=== PATIENT | male | born 1965 | race African-American/Black ===

== ENCOUNTER 2020-06-13 13:10 | Outpatient (REF) | payer OTHER, SELFPAY | END 2020-06-13 13:11 | disposition home or self-care (01) | LOC: HO.LAB 13:10 | PROVIDERS: Visit Provider Internal Medicine | DX: Z20.828 Contact with and (suspected) exposure to other viral communicable diseases (principal) | CPT/HCPCS: 36415; 87635 ==

== ENCOUNTER 2020-07-26 08:48 | Outpatient (REF) | payer OTHER, SELFPAY | END 2020-07-26 08:49 | disposition home or self-care (01) | LOC: HO.LAB 08:48 | PROVIDERS: Visit Provider Internal Medicine | DX: Z20.828 Contact with and (suspected) exposure to other viral communicable diseases (principal) | CPT/HCPCS: C9803; U0003 ==

== ENCOUNTER → 2021-06-05 14:54 | Outpatient (BNVA) | payer OTHER, SELFPAY | PROVIDERS: Visit Provider Physician Assistant Medical | DX: S86.112A Strain of other muscle(s) and tendon(s) of posterior muscle group at lower leg level, left leg, initial encounter (principal); X50.9XXA Other and unspecified overexertion or strenuous movements or postures, initial encounter | CPT/HCPCS: 99203 ==

== ENCOUNTER → 2021-06-11 14:45 | Outpatient (BNVA) | payer OTHER, SELFPAY | PROVIDERS: Visit Provider Physician Assistant | DX: S86.112A Strain of other muscle(s) and tendon(s) of posterior muscle group at lower leg level, left leg, initial encounter (principal); X58.XXXA Exposure to other specified factors, initial encounter | CPT/HCPCS: 99213 ==

== ENCOUNTER 2021-07-09 15:43 | Outpatient (REF) | payer OTHER, SELFPAY ==
--- NOTE | ~2021-07-09 | MR_ITS ---
EXAMINATION: MR FEMUR WITHOUT CONTRAST, LEFT CLINICAL INFORMATION: Pulling injury, evaluate distal hamstring-likely tear. Patient reports burning, swelling, distal hamstring, slight decrease in range of motion, symptoms since recent injury 05/28/2021. COMPARISON: None. TECHNIQUE: MRI of the ankle was obtained using routine sequences on a high-field scanner. FINDINGS: There is patchy edema in the distal semimembranosus muscle at the level of the distal femoral diaphysis. There are scattered focal areas of apparent disruption of muscle fibers. There is no discrete intramuscular hematoma. There is fluid around the muscle. There is some irregularity of the semimembranosus tendon along the musculotendinous junction. The distal tendon is intact. The rest of the hamstring muscles are unremarkable. There is nonspecific cystic change in the intercondylar region of the distal femur. No other bone marrow abnormalities are identified. MR/MR femur LT wo con IMPRESSION: Moderate grade 2 strain of the distal semimembranosus muscle.
== END 2021-07-09 15:44 | disposition home or self-care (01) ==
LOC: HO.MRI 15:43
PROVIDERS: PCP Internal Medicine; Visit Provider Internal Medicine
DX: S79.922D Unspecified injury of left thigh, subsequent encounter (principal)
CPT/HCPCS: 73718

== ENCOUNTER → 2021-07-17 15:45 | Outpatient (BNVA) | payer OTHER, SELFPAY | PROVIDERS: PCP Internal Medicine; Visit Provider Physician Assistant | DX: S76.312D Strain of muscle, fascia and tendon of the posterior muscle group at thigh level, left thigh, subsequent encounter (principal); X58.XXXD Exposure to other specified factors, subsequent encounter; M85.652 Other cyst of bone, left thigh ==

== ENCOUNTER → 2021-07-18 07:54 | Outpatient (BNVA) | payer OTHER, SELFPAY | PROVIDERS: PCP Internal Medicine; Visit Provider Physician Assistant | DX: S76.312D Strain of muscle, fascia and tendon of the posterior muscle group at thigh level, left thigh, subsequent encounter (principal); X58.XXXD Exposure to other specified factors, subsequent encounter | CPT/HCPCS: 99213 ==

== ENCOUNTER 2023-09-30 15:54 | Outpatient (AMB) | payer OTHER, SELFPAY ==
[2023-09-30 16:03] VITALS: BP 124/80; PULSE 75; O2SAT 96; BMI 31.0
--- NOTE | 2023-09-30 16:03 | HO.NEPHOV ---
HPI HPI Comments History of Present Illness Details Roly is a 58-year-old gentleman with baseline serum creatinine between 2-2.5 due to adult polycystic kidney disease was seen in follow-up today. He was enrolled in 2 clinical trials in [facility], one was Bardoxolone vs Placebo which he is not following up anymore. He has history of systolic hypertension as well as paroxysmal atrial fibrillation. He has had no flank pain, dysuria, hematuria, kidney stones, nausea, vomiting, fever, chills, urinary symptoms, chest pain, orthostatic symptoms, paroxysmal nocturnal dyspnea, orthopnea. He has strong family history of polycystic kidney disease with father and sister. His father started intermittent hemodialysis at age of 67 & her sister started dialysis in her 40s however was able to successfully get a renal transplant. He has no history of any infected cyst or rupture of his either. He is compliant with his medications and low-sodium diet. He had an aneurysm(PKD). [facility] Social History (Updated 09/30/23 @ 16:11 by Alexia Elkins) Alcohol intake: current Comment: [facility] Patient Tobacco Use Status: Never used Tobacco Vital Signs 09/30/23 16:03 Height 5 ft 10 in Weight 216 lb 6 oz BMI 31.0 BP 124/80 Blood Pressure Location Lt brachial Position Sitting Pulse 75 Pulse Source Pulse Oximeter Pulse Oximetry (%) 96 Oxygen Delivery Method Room Air Physical Exam Vital Signs: Last Vital Signs Pulse 75 09/30/23 16:03 BP 124/80 09/30/23 16:03 Pulse Ox 96 09/30/23 16:03 Oxygen Delivery Method Room Air 09/30/23 16:03 BMI result Body Mass Index 31.0 Const General: comfortable and no acute distress Orientation/consciousness: patient oriented x3 HEENT Head: Yes normocephalic Mouth: Normal oral and palatal mucosa present Eyes EOM: EOMs intact bilaterally Neck Neck: Yes supple Resp Auscultation: clear to auscultation bilaterally Cardio Jugular venous distension: no JVD Rate: regular rate GI Palpation (GI): Soft to palpation Auscultation: normal bowel sounds General: Yes no CVA tenderness Back/Spine/Pelvis Back: no CVA tenderness Skin General skin exam: no rashes or lesions noted Neuro General: patient oriented x3 and moves all extremities Extrem General: Yes no pedal edema Assessment & Plan Assessment & Plan (1) CKD (chronic kidney disease) stage 4, GFR 15-29 ml/min: Code(s): N18.4 - Chronic kidney disease, stage 4 (severe) (2) Hypertension: Code(s): I10 - Essential (primary) hypertension Qualifiers: Hypertension type: secondary to other renal disorders Qualified Code(s): I15.1 - Hypertension secondary to other renal disorders Deanne Dunham has CKD stage 4 from adult polycystic kidney disease. He has strong family history of PKD. His sister had a renal transplant. He is currently on angiotensin receptor margarita, carvedilol and nifedipine. His blood pressure is at goal. He maintains an on low-sodium diet. Has never taken tolvaptan. He will need a MRI of the kidneys to assess the volume of kidneys. I will do a 24 hour urine collection for GFR estimation after next visit. I did not make any medication changes today. He avoids nonsteroidal anti-inflammatory is an maintain good hydration. Follow-up lab work ordered. Answered all questions. Follow-up given. Orders: Orders Protein Creatinine Ratio, Ur 09/30/23 I10 - Essential (primary) hypertension, N18.4 - Chronic kidney disease, stage 4 (severe) Blood Urea Nitrogen 09/30/23 I10 - Essential (primary) hypertension, N18.4 - Chronic kidney disease, stage 4 (severe) Ferritin 09/30/23 I10 - Essential (primary) hypertension, N18.4 - Chronic kidney disease, stage 4 (severe) Vitamin D 25-OH Total 09/30/23 I10 - Essential (primary) hypertension, N18.4 - Chronic kidney disease, stage 4 (severe) Electrolytes 09/30/23 I10 - Essential (primary) hypertension, N18.4 - Chronic kidney disease, stage 4 (severe) Creatinine 09/30/23 I10 - Essential (primary) hypertension, N18.4 - Chronic kidney disease, stage 4 (severe) Complete Blood Count Auto Diff 09/30/23 I10 - Essential (primary) hypertension, N18.4 - Chronic kidney disease, stage 4 (severe) IRON PROFILE 09/30/23 I10 - Essential (primary) hypertension, N18.4 - Chronic kidney disease, stage 4 (severe) Parathyroid Hormone Intact 09/30/23 I10 - Essential (primary) hypertension, N18.4 - Chronic kidney disease, stage 4 (severe) Coding Level of Care Code Est Pt Level 4 (96596) Diagnoses CKD (chronic kidney disease) stage 4, GFR 15-29 ml/min N18.4 Hypertension secondary to other renal disorders I15.1 Hypertension type: secondary to other renal disorders Results Reviewed Nephrology Results: No Data to Display
== END 2023-09-30 16:38 | disposition home or self-care (01) ==
PROVIDERS: PCP Internal Medicine; Visit Provider Internal Medicine Nephrology
DX: N18.4 Chronic kidney disease, stage 4 (severe) (principal); I15.1 Hypertension secondary to other renal disorders
CPT/HCPCS: 99214

== ENCOUNTER → 2023-09-30 15:54 | Outpatient (BNVA) | payer OTHER, SELFPAY | PROVIDERS: PCP Internal Medicine; Visit Provider Internal Medicine Nephrology ==

== ENCOUNTER 2024-01-26 15:35 | Outpatient (REF) | payer OTHER, SELFPAY ==
[2024-01-26 17:49] LABS: MANUAL DIFF FLAG NO
[2024-01-26 17:54] LABS: Basophils Percent Auto 0.7 % (0-2); Eosinophils Absolute Auto 0.1 X10*3/uL (0.0-0.4); Eosinophils Percent Auto 2.5 % (0-4); Hematocrit 36.9 % (42.0-52.0); Lymphocytes Absolute Auto 1.8 X10*3/uL (1.2-4.9); Lymphocytes Percent Auto 39.9 % (20-40); Mean Corpuscular HGB Conc 32.5 g/dl (31.0-36.0); Mean Corpuscular Hemoglobin 29.8 pg (27.0-33.0); Mean Corpuscular Volume 91.6 fL (80.0-98.0); Mean Platelet Volume 11.5 fL (9.4-12.4); Monocytes Absolute Auto 0.4 X10*3/uL (0.1-1.2); Monocytes Percent Auto 9.1 % (2-11); Neutrophils Absolute Auto 2.1 x10*3/uL (2.0-8.3); Neutrophils Percent Auto 47.8 % (45-73); Platelet Count 258 X10*3/uL (160-400); Red Blood Count 4.03 X10*6/uL (4.60-5.80); Red Cell Distribution Width 13.6 % (11.0-16.0); White Blood Count 4.4 X10*3/uL (4.8-10.8)
[2024-01-26 18:07] LABS: Anion Gap 15 (12-20); Blood Urea Nitrogen 28 mg/dL (9-16); Carbon Dioxide 25 mmol/L (22-29); Chloride 108 mmol/L (96-108); Estimated Glomerular Filt Rate 27; Iron 61 mcg/dL (45-160); Percent Iron Saturation 31 % (15-50); Potassium 4.6 mmol/L (3.3-5.1); Sodium 143 mmol/L (135-145); Total Iron Binding Capacity 198 mcg/dL (228-428); Unsaturated Iron Binding 137 ug/dL
[2024-01-26 18:12] LABS: Parathyroid Hormone Intact 188.5 pg/mL (8.7-77.1)
[2024-01-26 18:22] LABS: Ferritin 248 ng/mL (20-250); Vitamin D 25-OH Total 23.9 ng/mL (>30)
[2024-01-26 18:24] LABS: Total Protein Urine Random 37 mg/dL (<12)
== END 2024-01-26 15:36 | disposition home or self-care (01) ==
LOC: HO.HKASLDS 15:35
PROVIDERS: Visit Provider Internal Medicine Nephrology
DX: I12.9 Hypertensive chronic kidney disease with stage 1 through stage 4 chronic kidney disease, or unspecified chronic kidney disease (principal); N18.4 Chronic kidney disease, stage 4 (severe)
CPT/HCPCS: 36415; 80051; 82306; 82565; 82570; 82728; 83540; 83970; 84156; 84520; 85025

== ENCOUNTER 2024-01-27 15:20 | Outpatient (AMB) | payer OTHER, SELFPAY ==
[2024-01-27 15:32] VITALS: BP 150/100; PULSE 55; O2SAT 98; BMI 29.3
--- NOTE | 2024-01-27 15:32 | HO.NEPHOV_ITS ---
Vital Signs 01/27/24 15:32 Height 5 ft 10 in Weight 204 lb 4 oz BMI 29.3 BP 150/100 H Blood Pressure Location Lt brachial Position Sitting Pulse 55 Pulse Source Pulse Oximeter Pulse Oximetry (%) 98 Oxygen Delivery Method Room Air Intake Visit Reasons: 4M follow up/ Confirmed Heavy [employer]er Required: No Accompanied by: Self / Same As Patient Allergies LINDA Inhibitors Allergy (Verified 01/27/24 15:34) Swelling HPI Comments Details: Roly is a 58-year-old gentleman with baseline serum creatinine between 2-2.5 due to adult polycystic kidney disease was seen in follow-up today. He was enrolled in 2 clinical trials in [facility], one was Bardoxolone vs Placebo which he is not fo llowing up anymore. He has history of systolic hypertension as well as paroxysmal atrial fibrillation. He has had no flank pain, dysuria, hematuria, kidney stones, nausea, vomiting, fever, chills, urinary symptoms, chest pain, orthostatic symptoms, paroxysmal nocturnal dyspnea, orthopnea. He has strong family history of polycystic kidney disease with father and sister. His father started intermittent hemodialysis at age of 67 & her sister started dialysis in her 40s however was able to successfully get a renal transplant. He has no history of any infected cyst or rupture of his either. He is compliant with his medications and low-sodium diet. He had an aneurysm(PKD). [facility] Social History Alcohol intake: current Comment: [facility] Patient Tobacco Use Status: Never used Tobacco Physical Exam Vital Signs: Last Vital Signs Pulse 55 01/27/24 15:32 BP 150/100 H 01/27/24 15:32 Pulse Ox 98 01/27/24 15:32 Oxygen Delivery Method Room Air 01/27/24 15:32 BMI result Body Mass Index 29.3 Results Reviewed Nephrology Results: Hgb 12.0 g/dl (14.0-18.0) L 01/26/24 WBC 4.4 X10*3/uL (4.8-10.8) L 01/26/24 Plt Count 258 X10*3/uL (160-400) 01/26/24 Sodium 143 mmol/L (135-145) 01/26/24 Potassium 4.6 mmol/L (3.3-5.1) 01/26/24 Chloride 108 mmol/L (96-108) 01/26/24 Carbon Dioxide 25 mmol/L (22-29) 01/26/24 BUN 28 mg/dL (9-16) H 01/26/24 Creatinine 2.51 mg/dL (0.5-1.4) H 01/26/24 PTH Intact 188.5 pg/mL (8.7-77.1) H 01/26/24 Urine Creatinine 183.00 mg/dL 01/26/24 Protein/Creatinin Ratio 0.20 (<0.2) 01/26/24 Assessment & Plan Assessment & Plan (1) Hypertension: Code(s): I10 - Essential (primary) hypertension Category: Medical Qualifiers: Hypertension type: secondary to other renal disorders Qualified Code(s): I15.1 - Hypertension secondary to other renal disorders (2) CKD (chronic kidney disease) stage 4, GFR 15-29 ml/min: Code(s): N18.4 - Chronic kidney disease, stage 4 (severe) Category: Medical Plan Roly has CKD stage 4 from adult polycystic kidney disease. He has strong family history of PKD. His sister had a renal transplant. He is currently on angiotensin receptor margarita, carvedilol and nifedipine. His blood pressure is at goal. He maintains an on low-sodium diet. Has never taken tolvaptan. He will need a MRI of the kidneys to assess the volume of kidneys. I ordered 24 hour urine collection for GFR estimation along with repeat labs prior to next visit. I did not make any medication changes today. He avoids nonsteroidal anti-inflammatory is an maintain good hydration. Follow-up lab work ordered. Answered all questions. Follow-up given. Orders: Orders Creatinine Clearance Urine 24U Today I15.1 - Hypertension secondary to other renal disorders, N18.4 - Chronic kidney disease, stage 4 (severe) Creatinine Today I15.1 - Hypertension secondary to other renal disorders, N18.4 - Chronic kidney disease, stage 4 (severe) Blood Urea Nitrogen Today I15.1 - Hypertension secondary to other renal disorders, N18.4 - Chronic kidney disease, stage 4 (severe) Electrolytes Today I15.1 - Hypertension secondary to other renal disorders, N18.4 - Chronic kidney disease, stage 4 (severe) Coding Level of Care Code Est Pt Level 4 (77252) Diagnoses Hypertension secondary to other renal disorders I15.1 Hypertension type: secondary to other renal disorders CKD (chronic kidney disease) stage 4, GFR 15-29 ml/min N18.4
== END 2024-01-27 16:07 | disposition home or self-care (01) ==
PROVIDERS: PCP Internal Medicine; Visit Provider Internal Medicine Nephrology
DX: I15.1 Hypertension secondary to other renal disorders (principal); N18.4 Chronic kidney disease, stage 4 (severe)
CPT/HCPCS: 99214

== ENCOUNTER → 2024-01-27 15:20 | Outpatient (BNVA) | payer OTHER, SELFPAY | PROVIDERS: PCP Internal Medicine; Visit Provider Internal Medicine Nephrology ==

== ENCOUNTER 2024-05-23 15:58 | Outpatient (AMB) | payer OTHER, SELFPAY ==
--- NOTE | 2024-05-23 16:25 | HO.NEPHOV_ITS ---
Vital Signs 05/23/24 16:26 Height 5 ft 10 in Weight 201 lb 2 oz BMI 28.9 BP 140/90 H Blood Pressure Location Rt brachial Position Sitting Pulse 76 Pulse Source Pulse Oximeter Pulse Oximetry (%) 97 Oxygen Delivery Method Room Air Intake Visit Reasons: 3 mon follow up/ Conf [place] Required: No Accompanied by: Self / Same As Patient Allergies LINDA Inhibitors Allergy (Verified 05/23/24 16:28) Swelling HPI Comments Details: Roly is a 58-year-old gentleman with baseline serum creatinine between 2-2.5 due to adult polycystic kidney disease was seen in follow-up today. He was enrolled in 2 clinical trials in [facility], one was Bardoxolone vs Placebo which he is not following up anymore. He has history of systolic hypertension as well as paroxysmal atrial fibrillation. He has had no flank pain, dysuria, hematuria, kidney stones, nausea, vomiting, fever, chills, urinary symptoms, chest pain, orthostatic symptoms, paroxysmal nocturnal dyspnea, orthopnea. He has strong family history of polycystic kidney disease with father and sister. His father started intermittent hemodialysis at age of 67 & her sister started dialysis in her 40s however was able to successfully get a renal transplant. He has no history of any infected cyst or rupture of his either. He is compliant with his medications and low-sodium diet. He had an aneurysm(PKD) [facility] Social History Alcohol intake: current Comment: occ Patient Tobacco Use Status: Never used Tobacco Review of Systems Const All systems reviewed & are unremarkable except as noted in HPI and below Physical Exam Vital Signs: Last Vital Signs Pulse 76 05/23/24 16:26 BP 160/110 H 05/23/24 16:26 Pulse Ox 97 05/23/24 16:26 Oxygen Delivery Method Room Air 05/23/24 16:26 BMI result Body Mass Index 28.9 Const General: comfortable and no acute distress Orientation/consciousness: patient oriented x3 HEENT Head: Yes normocephalic Mouth: Normal oral and palatal mucosa present Eyes EOM: EOMs intact bilaterally Neck Neck: Yes supple Resp Auscultation: clear to auscultation bilaterally Cardio Jugular venous distension: no JVD Rate: regular rate GI Palpation (GI): Soft to palpation Auscultation: normal bowel sounds General: Yes no CVA tenderness Back/Spine/Pelvis Back: no CVA tenderness Skin General skin exam: no rashes or lesions noted Neuro General: patient oriented x3 and moves all extremities Extrem General: Yes no pedal edema Results Reviewed Nephrology Results: Hgb 12.0 g/dl (14.0-18.0) L 01/26/24 WBC 4.4 X10*3/uL (4.8-10.8) L 01/26/24 Plt Count 258 X10*3/uL (160-400) 01/26/24 Sodium 143 mmol/L (135-145) 01/26/24 Potassium 4.6 mmol/L (3.3-5.1) 01/26/24 Chloride 108 mmol/L (96-108) 01/26/24 Carbon Dioxide 25 mmol/L (22-29) 01/26/24 BUN 28 mg/dL (9-16) H 01/26/24 Creatinine 2.51 mg/dL (0.5-1.4) H 01/26/24 PTH Intact 188.5 pg/mL (8.7-77.1) H 01/26/24 Urine Creatinine 183.00 mg/dL 01/26/24 Protein/Creatinin Ratio 0.20 (<0.2) 01/26/24 Assessment & Plan Assessment & Plan (1) CKD (chronic kidney disease) stage 4, GFR 15-29 ml/min: Code(s): N18.4 - Chronic kidney disease, stage 4 (severe) Category: Medical (2) Hypertension: Code(s): I10 - Essential (primary) hypertension Category: Medical Qualifiers: Hypertension type: secondary to other renal disorders Qualified Code(s): I15.1 - Hypertension secondary to other renal disorders (3) Polycystic kidney disease: Code(s): Q61.3 - Polycystic kidney, unspecified Category: Medical Plan Roly has CKD stage 4 from adult polycystic kidney disease. He has strong family history of PKD. His sister had a renal transplant. He is currently on angiotensin receptor margarita, carvedilol and nifedipine. His blood pressure is not at goal. I increased his Carvedilol to 25 mg bid. He maintains an on low- sodium diet. Has never taken tolvaptan. He will need a MRI of the kidneys to assess the volume of kidneys. I ordered 24 hour urine collection for GFR estimation along with repeat labs for this week. I did not make any other medication changes today. He avoids nonsteroidal anti-inflammatory is an maintain good hydration. Answered all questions. Follow-up given Medications: Changed From carvedilol 12.5 mg PO BID 90 days 180 tabs 4RF To carvedilol 25 mg PO BID 90 days 180 tabs 4RF Coding Level of Care Code Est Pt Level 4 (62350) Diagnoses CKD (chronic kidney disease) stage 4, GFR 15-29 ml/min N18.4 Hypertension secondary to other renal disorders I15.1 Hypertension type: secondary to other renal disorders Polycystic kidney disease Q61.3
[2024-05-23 16:26] VITALS: BP 140/90; PULSE 76; O2SAT 97; BMI 28.9
== END 2024-05-23 17:01 | disposition home or self-care (01) ==
PROVIDERS: PCP Internal Medicine; Visit Provider Internal Medicine Nephrology
DX: N18.4 Chronic kidney disease, stage 4 (severe) (principal); I15.1 Hypertension secondary to other renal disorders; Q61.3 Polycystic kidney, unspecified
CPT/HCPCS: 99214

== ENCOUNTER → 2024-05-23 15:58 | Outpatient (BNVA) | payer OTHER, SELFPAY | PROVIDERS: PCP Internal Medicine; Visit Provider Internal Medicine Nephrology ==

== ENCOUNTER 2024-05-25 08:59 | Outpatient (REF) | payer OTHER, SELFPAY ==
[2024-05-25 11:19] LABS: Anion Gap 13 (12-20); Blood Urea Nitrogen 23 mg/dL (9-16); Carbon Dioxide 27 mmol/L (22-29); Chloride 108 mmol/L (96-108); Estimated Glomerular Filt Rate 27; Potassium 4.6 mmol/L (3.3-5.1); Sodium 143 mmol/L (135-145)
[2024-05-25 12:38] LABS: Creatinine, mg/dL 97.93
[2024-05-25 13:02] LABS: Creatinine (CrCl) 2.47 mg/dL (0.5-1.4); Total Volume 24 Hour Urine 2000 mL
== END 2024-05-25 09:00 | disposition home or self-care (01) ==
LOC: HO.10HDL 08:59
PROVIDERS: Visit Provider Internal Medicine Nephrology
DX: I15.1 Hypertension secondary to other renal disorders (principal); N18.4 Chronic kidney disease, stage 4 (severe)
CPT/HCPCS: 36415; 80051; 82565; 82575; 84520

== ENCOUNTER 2024-10-24 15:12 | Outpatient (AMB) | payer OTHER, SELFPAY ==
[2024-10-24 15:14] VITALS: BP 146/90; PULSE 59; O2SAT 98; BMI 29.8
--- NOTE | 2024-10-24 15:14 | MHC.PC.OV ---
Vital Signs 10/24/24 15:14 Height 5 ft 10 in Weight 207 lb 6 oz BMI 29.8 BP 146/90 H Blood Pressure Location Lt brachial Position Sitting Pulse 59 Pulse Source Pulse Oximeter Pulse Oximetry (%) 98 Oxygen Delivery Method Room Air Intake Visit Reasons: establish care Sales Development Director Required: No Accompanied by: Self / Same As Patient Allergies LINDA Inhibitors Allergy (Verified 10/30/24 02:07) Swelling Medication List - Last Reconciled 10/30/24 by Dinh Martinez MD apixaban (Eliquis) 5 mg PO BID carvedilol 25 mg PO BID 90 days cholecalciferol (vitamin D3) 25 mcg PO DAILY nifedipine ER 60 mg PO DAILY olmesartan 40 mg PO DAILY 90 days Tobacco use date assessed: 10/24/24 Dental Screening Dental Screen Date: 10/24/24 Did you have a dental visit in the last 12 months?: Yes Did you have a dental problem in the last 6 months where you did not have access to dental care?: No Was dental information given to patient?: Patient has dentist HPI establish care HPI Details Patient comes in today for his annual physical examination and to establish care - is a new patient to the practice His previous PCP was Dr. 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 Ibarra regularly for nephrology follow-up of his CKD States that he also has paroxysmal atrial fibrillation and was seeing Cardiology in [place] a few years ago but has not seen them in the past couple of years Patient states that he currently feels okay He denies any headaches or dizziness Denies any chest pains, no increased shortness of breath No nausea/vomiting, no abdominal pain No change in bowel habits noted States that he has noticed a recurrent mass over his lower abdomen recently and is wondering if it may be a hernia or not He denies any acute urinary symptoms States that he had a screening colonoscopy done but that was about several years ago now [facility] Medical History (Updated 10/30/24 @ 02:24 by Dinh Martinez MD) Overweight (BMI 25.0-29.9) Vitamin D deficiency Essential hypertension Polycystic kidney disease CKD (chronic kidney disease) stage 4, GFR 15-29 ml/min Paroxysmal atrial fibrillation Surgical History (Updated 10/30/24 @ 02:13 by Dinh Martinez MD) No pertinent past surgical history Family History (Updated 10/24/24 @ 15:25 by ZEB Rodriguez) Other FH: mental illness Kidney disease Social History Housing: House Alcohol intake: current Comment: occ Patient Tobacco Use Status: Never used Tobacco service: Yes Current occupational status: employed Current occupational exposures/hazards: No Cognitive needs: No Hearing needs: No Vision needs: Yes Questionnaire PHQ-9 Over the last 2 weeks, how often have you been bothered by any of the following problems? 1. Little interest or pleasure in doing things: not at all 2. Feeling down, depressed, or hopeless: not at all 3. Trouble falling or staying asleep, or sleeping too much: not at all 4. Feeling tired or having little energy: several days 5. Poor appetite or overeating: not at all 6. Feeling bad about yourself - or that you are a failure or have let yourself or your family down: not at all 7. Trouble concentrating on things, such as reading the newspaper or watching television: not at all 8. Moving or speaking so slowly that other people could have noticed. Or the opposite - being so fidgety or restless that you have been moving around a lot more than usual: not at all 9. Thoughts that you would be better off or of hurting yourself in some way: not at all Total score: 1 Depression Screening Interpretation: Negative Depression Screening Done: Yes 99986 - PHQ-9 Billing: Yes Source: Developed by Drs. Gustavo Peterson, Noemy Garcia, Jeffrey Starr and colleagues, with an educational sulema from [employer]. Thrive Questionnaire Date Thrive assessed: 10/24/24 I am a: Patient What is your living situation today?: I have a steady place to live Within the past 12 months, did the food you bought not last and you didn't have the money to get more?: Never true Within the past 12 months, did you worry whether your food would run out before you got money to buy more?: Never true Do you have trouble paying for medicines?: No Do you have trouble getting transportation to medical appointments?: No Do you have trouble paying your heating and electricity bill?: No Do you have trouble taking care of your child, family member or friend?: No Do you have trouble with day-to-day activities such as bathing, preparing meals, shopping, managing finances, etc.?: No Are you currently unemployed and looking for a job?: No Are you interested in more education?: Yes Please select the resources that you would like help with: None Currently or been in a relationship where the following occur: No concerns reported THRIVE Score: 0 AUDIT C Alcohol Use Questionnaire (AUDIT-C) 1. How often do you have a drink containing alcohol?: Monthly or less 2. How many drinks containing alcohol do you have on a typical day when you are drinking?: 1 or 2 3. How often do you have six or more drinks on one occasion?: Never Total Score: 1 Score Reviewed/Action Taken: Yes AYLEEN-7 AMB Questionnaire AYLEEN-7 Date AYLEEN - 7 assessed: 10/24/24 Feeling nervous, anxious, or on edge: 0 = Not at all Not being able to stop or control worryin = Not at all Worrying too much about different things: 0 = Not at all Trouble relaxin = Several days Being so restless that it is hard to sit still: 0 = Not at all Becoming easily annoyed or irritable: 1 = Several days Feeling afraid as if something awful might happen: 0 = Not at all Total AYLEEN-7 score (0-4 normal; 5-9 mild; 10-14 moderate; 15-21 severe): 2 Source: Developed by Drs. Gustavo Peterson, Noemy Garcia, Jeffrey Starr and colleagues, with an educational sulema from [employer]. Review of Systems Const Denies chills, Denies fatigue, Denies fever(s), Denies headache(s), Denies malaise and Denies weakness Eyes Denies blurry vision, Denies change in vision, Denies irritation and Denies itchy eyes ENT Denies dysphagia, Denies dizziness, Denies otalgia, Denies headache(s), Denies nasal congestion, Denies neck pain, Denies odynophagia and Denies sore throat Card Denies chest pain, Denies rapid heart rate, Denies irregular heart rhythm, Denies palpitations and Denies dyspnea Resp Denies chest congestion, Denies cough, Denies dyspnea and Denies wheezing GI Details: (+) recurrent palpable lower abdominal mass Denies abdominal pain, Denies bloating, Denies constipation, Denies dysphagia, Denies heartburn, Denies diarrhea, Denies nausea, Denies odynophagia and Denies vomiting Denies hematuria, Denies difficulty urinating, Denies dysuria, Denies urinary frequency and Denies urinary urgency Musc Denies back pain, Denies arthralgias, Denies joint swelling, Denies muscle weakness and Denies neck pain Skin/Breast Denies change in pigmentation, Denies lesions, Denies rash and Denies unusual bruising Neuro Denies dizziness, Denies headache(s), Denies paresthesias and Denies weakness Endo Denies fatigue and Denies palpitations Aller/Immun Denies itchy eyes and Denies wheezing Physical exam (Primary Care) Vital Signs: Last Vital Signs Pulse 59 10/24/24 15:14 BP 146/90 H 10/24/24 15:14 Pulse Ox 98 10/24/24 15:14 Oxygen Delivery Method Room Air 10/24/24 15:14 BMI result Body Mass Index 29.8 Tobacco/Smoking Status: Tobacco use Status Tobacco use date assessed 10/24/24 10/24/24 15:26 Patient Tobacco Use Status Never used Tobacco 10/24/24 15:26 PHQ-9: PHQ-9 Score PHQ-9: Total score 1 10/24/24 16:00 Depression Screening Interpretation: Negative Thrive Assessment: Date of Thrive Assessment Date Thrive assessed 10/24/24 10/24/24 15:26 Currently or been in a relationship where the following occur: No concerns reported Const General: no acute distress, alert and awake Orientation/consciousness: patient oriented x3 HENMT Head: Yes normocephalic and Yes atraumatic Ears: external ears normal, TM's normal bilaterally and EAC's normal General nose exam: No nasal discharge present Face and sinus: Yes normal facial exam and Yes sinuses nontender Teeth and gingiva: dentition normal Throat: Yes posterior oropharynx normal and Yes tonsils normal (no TP congestion) Eyes Eyelids: Yes eyelids normal Conjunctivae: conjunctivae normal Pupils: Equal, round and reactive pupils present EOM: EOMs intact bilaterally Neck Neck: Yes supple and No lymphadenopathy Thyroid: Thyroid normal Resp Auscultation: clear to auscultation bilaterally, no rales and no wheezes Cardio Rate: regular rate Rhythm: regular rhythm Heart sounds: no murmurs GI Palpation (GI): Soft to palpation, nontender, No hepatosplenomegaly present and Palpable mass present ((+) small reducible palpable mass over the left suprapubic area) Auscultation: normal bowel sounds General: Yes no CVA tenderness Back/Spine/Pelvis Back: no CVA tenderness Thoracic/Lumbar Spine: No lumbar spinal tenderness Skin Lesions: no lesions Rashes: no rashes Neuro General: patient oriented x3, moves all extremities, no focal motor deficits and CN's II-XI intact bilaterally Cranial nerves: Yes Equal, round and reactive pupils present Cognition (Neuro): normal cognition Gait exam (Neuro): Normal gait present Extrem General: Yes no clubbing, cyanosis or edema Coding Level of Care Code New Pt Prev Care 40-64y(11825) Diagnoses Annual physical exam Z00.00 Paroxysmal atrial fibrillation I48.0 Essential hypertension I10 CKD (chronic kidney disease) stage 4, GFR 15-29 ml/min N18.4 Abdominal wall mass of suprapubic region R19.09 Vitamin D deficiency E55.9 Overweight (BMI 25.0-29.9) E66.3 Colon cancer screening Z12.11 Additional Codes PHQ-9 - 19716 - PHQ-9 Billing: Yes ([id number]) Assessment & Plan Assessment & Plan (1) Annual physical exam: Code(s): Z00.00 - Encounter for general adult medical examination without abnormal findings Category: Medical Plan: Check labs Patient states that she had a screening colonoscopy done in the past several years ago and that he is likely due or almost due for repeat colonoscopy (2) Paroxysmal atrial fibrillation: Code(s): I48.0 - Paroxysmal atrial fibrillation Category: Medical Plan: Patient is currently in sinus rhythm Continue Eliquis 5 mg BID thromboembolism prophylaxis Patient states that he has not seen Cardiology for follow-up in a couple of years now - will go ahead and refer him to [facility] for continuing cardiology follow-up and management (3) Essential hypertension: Code(s): I10 - Essential (primary) hypertension Category: Medical Plan: Reinforced low sodium diet - goal is systolic BP of 120 to 130 mm or less Continue Carvedilol 25 mg BID, Nifedipine ER 60 mg QD and Olmesartan 40 mg QD Patient is reminded to continue monitoring his blood pressure regularly (4) CKD (chronic kidney disease) stage 4, GFR 15-29 ml/min: Code(s): N18.4 - Chronic kidney disease, stage 4 (severe) Category: Medical Plan: Will recheck his serum creatinine and GFR for follow-up and will continue to monitor his renal function closely/regularly Follow-up with nephrology (Dr. Gonzáles) as scheduled (5) Abdominal wall mass of suprapubic region: Code(s): R19.09 - Other intra-abdominal and pelvic swelling, mass and lump Category: Medical Plan: Discussed with patient that the reducible mass over his left lower abdomen is likely a direct left inguinal hernia Will send him for pelvic ultrasound for further evaluation (6) Vitamin D deficiency: Code(s): E55.9 - Vitamin D deficiency, unspecified Category: Medical Plan: Continue Vitamin D3 1000 units QD (7) Overweight (BMI 25.0-29.9): Code(s): E66.3 - Overweight Category: Medical Plan: Reinforce diet/exercise as tolerated/lose weight (8) Colon cancer screening: Code(s): Z12.11 - Encounter for screening for malignant neoplasm of colon Category: Medical Plan: Will refer him to GI for repeat screening colonoscopy Plan Follow-up in 3 months Orders: Orders Complete Blood Count Auto Diff 10/24/24 D64.9 - Anemia, unspecified, I48.0 - Paroxysmal atrial fibrillation, Q61.3 - Polycystic kidney, unspecified Comprehensive [place]. Panel Fast 10/24/24 E78.00 - Pure hypercholesterolemia, unspecified, I48.0 - Paroxysmal atrial fibrillation, Q61.3 - Polycystic kidney, unspecified UA CC w/rflx Micro + Cult 10/24/24 I48.0 - Paroxysmal atrial fibrillation, Q61.3 - Polycystic kidney, unspecified, R30.0 - Dysuria Vitamin D 25-OH Total 10/24/24 E55.9 - Vitamin D deficiency, unspecified, I48.0 - Paroxysmal atrial fibrillation, Q61.3 - Polycystic kidney, unspecified Microalbumin, Random (w Creat) 10/24/24 E11.9 - Type 2 diabetes mellitus without complications, I48.0 - Paroxysmal atrial fibrillation, Q61.3 - Polycystic kidney, unspecified XR shoulder LT min 2V 10/24/24 M25.512 - Pain in left shoulder US pelvic complete 10/24/24 R19.09 - Other intra-abdominal and pelvic swelling, mass and lump Lipid Panel 10/24/24 E78.00 - Pure hypercholesterolemia, unspecified, I48.0 - Paroxysmal atrial fibrillation, Q61.3 - Polycystic kidney, unspecified TSH reflex Free T4 10/24/24 E78.00 - Pure hypercholesterolemia, unspecified, I48.0 - Paroxysmal atrial fibrillation, Q61.3 - Polycystic kidney, unspecified Prostate Specific Antigen 10/24/24 N40.0 - Benign prostatic hyperplasia without lower urinary tract symptoms, Z00.00 - Encounter for general adult medical examination without abnormal findings Referrals Cardiology Referral I48.0 - Paroxysmal atrial fibrillation Gastroenterology Referral Z12.11 - Encounter for screening for malignant neoplasm of colon
--- OUTSIDE RECORDS SUMMARY | 2024-10-24 15:59 | XMS_ITS | Clinical Summary ---
Author Organization [facility] Address [address] [place] [address] Phone Care Team Providers Care Foundation Assistant Name Role Phone Alfredo Thomas MD Primary Care Provide r Allergies Active Allergy Reactions Criticality Noted Date Comments Napoleon Inhibitors Swelling,Other (see comments) angioedema Medications Eliquis 5 MG tablet Take 5 mg by mouth 3 Active Ciclopirox 0.77 % gel APPLY TO AFFECTED AREA EXTERNALLY TWICE A DAY TO EFFECTED NAILS 30 DAYS 2 Active carvedilol (COREG) 12.5 MG tablet Take 12.5 mg by mouth 3 Active olmesartan (BENICAR) 40 MG tablet Take 40 mg by mouth 1 (one) time each day 3 Active acetaminophen (TYLENOL 8 HOUR) 650 MG 8 hr tablet Take 650 mg by mouth every 8 (eight) hours if needed for mild pain Do not crush, chew, or split. Active senna (SENOKOT) 8.6 MG tablet Take 1 tablet by mouth 1 (one) time each day Active NIFEdipine XL (PROCARDIA XL) 60 MG 24 hr tablet TAKE 1 TABLET BY MOUTH DAILY 90 tablet 1 3 Active Active Problems Problem Noted Date Diagnosed Date Atrial fibrillation 03/08/2023 Essential (primary) hypertension 03/08/2023 Autosomal dominant polycystic kidney 03/08/2023 Stage 3 chronic kidney disease, not otherwise sp ecified 03/08/2023 Acquired hammer toe of left foot 11/23/2022 Diabetes mellitus 11/23/2022 Plantar wart 11/23/2022 Tinea unguium 11/23/2022 Mild left ventricular hypertrophy 07/24/2021 Overview (11/23/2022): 08/03 echo Cyst of liver 03/08/2019 Impaired fasting glucose 10/25/2015 Chronic kidney disease stage 3 10/23/2014 Multiple renal cysts 08/21/2014 Overview (11/23/2022): On clinical trial at [facility], Dr Jacobo Overweight 11/05/2011 Hypertensive disorder 10/01/2009 Immunizations Name Administration Dates Next Due Influenza, MDCK, PF, Quadrivalent 06/12/2020 Pfizer SARS-COV-2 11/28/2020,11/07/2020 Tdap 09/20/2015 Social History Tobacco Use Types Packs/Day Years Used Date Smoking Tobacco: Never Passive Smoke Exposure: Never Smokeless Tobacco: Never Tobacco Cessation:Counseling Given: Not Answered Alcohol Use Standard Drinks/Week Comments Never 0 (1 standard drink = 0.6 oz pur e alcohol) Sex and Gender Information Value Date Recorded Sex Assigned at Not on file Legal Sex Male 2:16 PM EST Gender Identity Not on file Sexual Orientation Not on file Last Filed Vital Signs Vital Sign Reading Time Taken Comments Blood Pressure 140/90 06/07/2023 4:19 PM EDT Pulse 59 06/07/2023 4:19 PM EDT Temperature - - Respiratory Rate - - Oxygen Saturation 99% 06/07/2023 4:19 PM EDT Inhaled Oxygen Concentration - - Weight 94.8 kg (208 lb 14.4 oz) 06/07/2023 4:19 PM EDT Height - - Body Mass Index - - Plan of Treatment Health Maintenance Due Date Last Done Comments Pneumococcal Vaccine: Pediat rics (0 to 5 Years) and At-Risk Patients (6 to 64 Years) (1 of 2 - PCV) 1971 Hepatitis B Vaccine (1 of 3 - 19+ 3-dose series) 03/25 Colorectal Cancer Screening: Annual FOBT 2014 Colorectal Cancer Screening: Colonoscopy 2014 Colorectal Cancer Screening: Sigmoidoscopy 2014 Diabetes: Hemoglobin A1C 09/16/2022 Diabetes: Ophthalmology Exam 09/16/2022 Diabetes: Pedal Pulse Checked 09/16/2022 Diabetes: Sensory Foot Exam 09/16/2022 Diabetes: Visual Foot Exam 09/16/2022 Influenza Vaccine (#1) 2024 06/12/2020 Insurance [employer] [place] [id number] [employer] Care Teams Foundation Assistant Relationship Specialty Start Date End Date Alfredo Thomas MD PCP - General Internal Medicine 07/13/23
--- OUTSIDE RECORDS SUMMARY | 2024-10-24 15:59 | XMS_ITS | Clinical Summary ---
Author Organization [facility] Address [address] [place] [address] Care Team Providers Care Helper Maintenance Cleaning Name Role Phone Unavailable Primary Care Provider Unavailabl e Surgical History Surgery Date Site/Laterality Comments OTHER SURGICAL HISTORY PROCEDURE: DENIES PREVIOUS SURGERY COLONOSCOPY 10/25/15 PROCEDURE: HISTORICAL COLONOSCOPY; COMMENT: tics; repeat in 10 yrs Medical History Medical History Date Comments Essential hypertension DX:Essent ial hypertension Polycystic kidney disease DX:Corey ycystic kidney disease CKD (chronic kidney disease) DX: CKD (chronic kidney disease) Family History Medical History Relation Name Comments No Known Problems Daughter 1 No Known Problems Daughter 2 Hypertension Father Other: Other Father Breast cancer Mother after age 50 Stroke Mother Other: pckd Sister 1 Hypertension Sister 2 Coronary artery disease Neg Hx Diabetes Neg Hx Relation Name Status Comments Brother Daughter 1 Daughter 2 Father Mother Alive Sister 1 Sister 2 Social History Tobacco Use Types Packs/Day Years Used Date Smoking Tobacco: Never Smokeless Tobacco: Never Alcohol Use Standard Drinks/Week Comments No 0 (1 standard drink = 0.6 oz pur e alcohol) Sex and Gender Information Value Date Recorded Sex Assigned at Not on file Legal Sex Male 7:20 AM EST Gender Identity Not on file Sexual Orientation Not on file Obstetrics History Plan of Treatment Health Maintenance Due Date Last Done Comments Hepatitis B Vaccines (1 of 3 - 19+ 3-dose series) 1984 Zoster Vaccines (1 of 2) 2015 COVID-19 Vaccine (3 - 2023-2 5 season) 2024 11/28/2020, 11/07/2020 Influenza Vaccine (#1) 2024 06/12/2020 DTaP,Tdap,and Td Vaccines (2 - Td or Tdap) 09/20/2025 09/20/2015 RSV Immunization Patients 60 + Years Old (1 - 1-dose 75+ series) 2040 HIB Vaccines Aged Out No longer eligi ble based on patient's age to complete this topic HPV Vaccines Aged Out No longer eligi ble based on patient's age to complete this topic Hepatitis A Vaccines Aged Out No long er eligible based on patient's age to complete this topic IPV Vaccines Aged Out No longer eligi ble based on patient's age to complete this topic MMR Vaccines Aged Out No longer eligi ble based on patient's age to complete this topic Meningococcal ACWY Vaccine Aged Out N o longer eligible based on patient's age to complete this topic Pneumococcal Vaccine: Pediatrics (0 to 5 Years) and At-Risk Patients (6 to 64 Years) Aged Out No longer eligible b ased on patient's age to complete this topic RSV Immunization Patients Under 20 months Aged Out No longer eligible b ased on patient's age to complete this topic Varicella Vaccines Aged Out No longer eligible based on patient's age to complete this topic
--- OUTSIDE RECORDS SUMMARY | 2024-10-24 15:59 | XMS_ITS | Patient Health Record ---
Author Organization [facility] Address [address] [place] [address] Care Team Providers Care Pearl Peller Name Role Phone Benito Feng Unavailable [phone] Allergies Allergen (clinical drug ingredient) Drug/Non Drug Allergy documented on EMR Reaction Allergy Type Onset Date Status angiotensin-converting enzyme inhibitor (FN) LINDA Inhibitors Unknown Drug Allergy Acti ve Reason For Referral No Information Medications Medication SIG (Take, Route, Frequency, Duration) Notes Start Date End Date Status Ciclopirox 0.77 % 1 application to aff ected area Externally Twice a day to effected nails for 30 days 08/19/2022 Active amLODIPine Besylate 10 MG 1 tablet Orall y Once a day for 30 day(s) Active Olmesartan Medoxomil 40 MG 1 tablet Oral ly Once a day for 30 day(s) Active Carvedilol 25 MG 1 tablet with food O rally Twice a day for 30 day(s) Active Social History Tobacco Use: Social History Observation Description Date Details (start date - stop date) Never Smoker NA - NA Tobacco Use/Smoking Question Answer Notes Are you a: nonsmoker Alcohol Screen Question Answer Notes Did you have a drink containing alcohol in the p ast year? No Points 0 Interpretation Negative Tobacco use other than smoking: Question Answer Notes Are you an other tobacco user? No Problems Problem Type SNOMED Code ICD Code Onset Dates Problem Status W/U Status Risk Notes Problem Acquired hammer toe of right foot (3417729336716 105) Other hammer toe(s) (acquired), right foot (M20.41) Active confirmed Problem Tinea unguium (884494523) Tinea unguium (B35.1) Active confirmed Problem Acquired hammer toe of left foot (5495131645906 103) Other hammer toe(s) (acquired), left foot (M20.42) Active confirmed Problem Plantar wart (01938078) Plantar wart (B07.0) Active confirmed Plan Of Treatment Pending Test Test Name Order Date [id number] NAIL, 6 OR MORE 08/19/2022 [id number] Destruction, 1-14 08/19/2022 Insurance Providers Payer Name Payer Address Payer Phone Subscriber Number Group Number Insured Name Patient Relationship to Insured Coverage Start Date Coverage End Date [employer] [address] [place] [phone] [id number] Princess Cruz Spouse - patient is the spouse of the insured Medical (General) History Medical History History ICD Code covid-19 Kidney disease Chicken pox Surgical History Surgery Date(Month/Year)
== END 2024-10-24 16:17 | disposition home or self-care (01) ==
PROVIDERS: PCP Internal Medicine; Visit Provider Internal Medicine
DX: Z00.00 Encounter for general adult medical examination without abnormal findings (principal); I48.0 Paroxysmal atrial fibrillation; I12.9 Hypertensive chronic kidney disease with stage 1 through stage 4 chronic kidney disease, or unspecified chronic kidney disease; N18.4 Chronic kidney disease, stage 4 (severe); R19.09 Other intra-abdominal and pelvic swelling, mass and lump; E55.9 Vitamin D deficiency, unspecified; E66.3 Overweight; Z12.11 Encounter for screening for malignant neoplasm of colon

== ENCOUNTER → 2024-10-24 15:12 | Outpatient (BNVA) | payer OTHER, SELFPAY | PROVIDERS: PCP Internal Medicine; Visit Provider Internal Medicine | DX: Z00.00 Encounter for general adult medical examination without abnormal findings (principal); I48.0 Paroxysmal atrial fibrillation; I12.9 Hypertensive chronic kidney disease with stage 1 through stage 4 chronic kidney disease, or unspecified chronic kidney disease; N18.4 Chronic kidney disease, stage 4 (severe); R19.09 Other intra-abdominal and pelvic swelling, mass and lump; E55.9 Vitamin D deficiency, unspecified; E66.3 Overweight; Z79.01 Long term (current) use of anticoagulants; Z79.899 Other long term (current) drug therapy | CPT/HCPCS: 96127 ==

== ENCOUNTER 2024-11-21 08:21 | Outpatient (REF) | payer OTHER, SELFPAY ==
--- NOTE | ~2024-11-21 | XR_ITS ---
EXAMINATION: XR SHOULDER 2 OR MORE VIEWS LEFT HISTORY: M25.512 - Pain in left shoulder COMPARISON: There are no prior studies available for comparison. FINDINGS: Four views of the left shoulder are submitted. Osseous mineralization is normal. There is no fracture or dislocation. The glenohumeral and acromioclavicular joint spaces are preserved. The soft tissues are unremarkable. XR/XR shoulder LT min 2V IMPRESSION: Unremarkable examination of the left shoulder. Electronically signed by: Gustavo Tanner MD 11/21/2024 01:17 PM EDT
--- NOTE | ~2024-11-21 | US_ITS ---
EXAMINATION: US PELVIS SOFT TISSUE LIMITED. CLINICAL INFORMATION: Swelling, mass/lump inguinal canals. COMPARISON: None available. TECHNIQUE: Real-time ultrasound of the soft tissues with a linear transducer in the region of concern of the inguinal canals bilaterally. Grayscale and color Doppler technique. FINDINGS: Bilateral prominent, nonspecific inguinal lymph nodes with fatty hilum. No masses or fluid collections. No lesions during Valsalva maneuvers. US/US pelvic complete IMPRESSION: Negative for inguinal hernias, masses or fluid collections. Electronically signed by: Peter Melvin MD 11/21/2024 01:59 PM EDT
[2024-11-21 08:48] LABS: MANUAL DIFF FLAG NO
--- OUTSIDE RECORDS SUMMARY | 2024-11-21 09:01 | XMS_ITS | Encounter Summary ---
Author Organization [facility] Address [address] [place] [address] Care Team Providers Care Commercial Intern Name Role Phone Geo Valero MD Primary Care Provider Unavail able Barbara Arias MD Primary Care Provider Barbara huynh Encounter Details Date Type Department Care Team Description 10/01/2014 Refill Nephrology - [address] [address] Felix Kirkland MD [address] [place] [id number] Social History Tobacco Use Types Packs/Day Years Used Date Smoking Tobacco: Never Alcohol Use Standard Drinks/Week Comments No 0 (1 standard drink = 0.6 oz pur e alcohol) Sex Assigned at Date Recorded Not on file documented as of this encounter Plan of Treatment Not on file documented as of this encounter Visit Diagnoses Not on filedocumented in this encounter Care Teams Commercial Intern Relationship Specialty Start Date End Date Geo Valero MD PCP - General 10/01/09 06/08/22 Barbara Arias MD PCP - General Family Practice 06/09/22 documented as of this encounter
--- OUTSIDE RECORDS SUMMARY | 2024-11-21 09:01 | XMS_ITS | Clinical Summary ---
Author Organization [facility] Address [address] [place] [address] Phone Care Team Providers Care Freight Receiver Name Role Phone Alfredo Thomas MD Primary [...] 08/21/2014 Overview (11/23/2022): On clinical trial at [facility], Dr Jacobo Overweight 11/05/2011 Hypertensive disorder 10/01/2009 [...] Vaccine (#1) 2024 06/12/2020 Insurance [employer] [place] [id number] [employer] Care Teams Freight Receiver Relationship Specialty Start Date End Date Alfredo Thomas MD PCP - General Internal Medicine 07/13/23
--- OUTSIDE RECORDS SUMMARY | 2024-11-21 09:01 | XMS_ITS | Encounter Summary ---
Author Organization [facility] Address [address] [place] [address] Care Team Providers Care Structural Analyst Name Role Phone Geo Valero MD Primary Care Provider Unavail able Barbara Arias MD Primary Care Provider Barbara huynh Reason for Visit * Reason Comments E-prescribe Rx Request Encounter Details Date Type Department Care Team Description 05/31/2013 Refill Medicine/Pediatrics [address] [address] Geo Valero MD E-prescribe Rx Request Social History Tobacco Use Types Packs/Day Years Used Date Smoking Tobacco: Never Alcohol Use Standard Drinks/Week Comments No 0 (1 standard drink = 0.6 oz pur e alcohol) Sex Assigned at Date Recorded Not on file documented as of this encounter Miscellaneous Notes * Telephone Encounter - Cris Mohan M.A. - 05/31/2013 9:17 AM EDT hai 10.13.13 Component Value Date NA 142 10/13/2012 K 4.7 10/13/2012 CO2 28.6 10/13/2012 CL 103 10/13/2012 BUN 15 10/13/2012 CREAT 1.3 10/13/2012 GLU 101 10/13/2012 CA 9.8 10/13/2012 GFR >60 10/13/2012 * Telephone Encounter - Glenn Calles - 05/31/2013 8:54 AM EDT Patient would like script to be: E-PRESCRIBED/FAXED TO PHARMACY WHEN WAS THE PATIENT'S LAST APPOINTMENT IN ADULT MEDICINE? 10/13/2012 WHEN WAS THE LAST TIME THE PATIENT SAW THEIR PCP? Same as above Does patient have an upcoming appointment? No- (THE MEDICATION REQUESTED IS ON THE MED LIST ABOVE) All of the medications requested were on the CURRENT MEDS list Did you check the Pharmacy information above?: YES Patient wants: 30 -day supply Is this a mail order prescription request ? NO Patients current insurance carrier is: Payor: [facility]/PPO POS Plan: PPO $0 Devtoo [id number] Product Type: PPO [id number] documented in this encounter Plan of Treatment Not on file documented as of this encounter Visit Diagnoses Not on filedocumented in this encounter Care Teams Structural Analyst Relationship Specialty Start Date End Date Geo Valero MD PCP - General 10/01/09 06/08/22 Barbara Arias MD PCP - General Family Practice 06/09/22 documented as of this encounter
--- OUTSIDE RECORDS SUMMARY | 2024-11-21 09:01 | XMS_ITS | Patient Health Record ---
Author Organization [facility] Address [address] [facility] [place] [address] Care Team Providers Care Foundry Worker Name Role Phone Benito Feng Unavailable [phone] Allergies Allergen (clinical drug ingredient) Drug/Non Drug [...] Problem Acquired hammer toe of right foot (8763740952833 105) Other hammer toe(s) (acquired), right foot (M20.41) Active confirmed Problem Tinea unguium (367624207) Tinea unguium (B35.1) Active confirmed Problem Acquired hammer toe of left foot (8581614292010 103) Other hammer toe(s) (acquired), left foot (M20.42) Active confirmed Problem Plantar wart (24655397) Plantar wart (B07.0) Active confirmed Plan Of Treatment Pending Test Test Name Order Date [id number] NAIL, 6 OR MORE 08/19/2022 [id number] Destruction, 1-14 08/19/2022 Insurance Providers Payer Name Payer Address Payer Phone Subscriber Number Group Number Insured Name Patient Relationship to Insured Coverage Start Date Coverage End Date Aetna [address] [place] [address] [id number] Princess Cruz Spouse - patient is the spouse of the insured Medical (General) History Medical History History ICD Code covid-19 Kidney disease Chicken pox Surgical History Surgery Date(Month/Year)
--- OUTSIDE RECORDS SUMMARY | 2024-11-21 09:01 | XMS_ITS | Clinical Summary ---
Author Organization [facility] it Address [address] [place] [address] Care Team Providers Care Large Sheetfed Press Operator Name Role Phone Unavailable Primary Care Provider [...] of 3 - 19+ 3-dose series) 1984 Pneumococcal Vaccine: 50+ Years (1 of 1 - PCV) 2015 Zoster Vaccines (1 of 2) 2015 COVID-19 Vaccine ( - 2023-2 5 season) 2024 11/28/2020, 11/07/2020 [...] patient's age to complete this topic Meningococcal B Vacine Aged Out No lo nger eligible based on patient's age to complete [...]
--- OUTSIDE RECORDS SUMMARY | 2024-11-21 09:01 | XMS_ITS | Clinical Summary ---
Author Organization [facility] Address [address] [place] [address] Care Team Providers Care Sterilization Technician Name Role Phone Barbara Arias MD Primary Care Provider Barbara huynh Allergies Active Allergy Reactions Severity Noted Date Comments Napoleon Inhibitors Swelling/Edema 10/01/2009 angioedema Medications Medication Sig Dispensed Refills Start Date End Date Status olmesartan (BENICAR) 40 MG tablet TAKE 1 TABLET BY MOUTH EVERY DAY 30 tablet 0 06/25/2021 Active amlodipine (NORVASC) 10 MG tablet Take 1 tablet by mouth daily. 30 tablet 0 07/29/2021 Active Active Problems Problem Noted Date Mild concentric left ventricular hypertr ophy (LVH) 07/24/2021 Overview: 08/03 echo Liver cyst 03/08/2019 Impaired fasting glucose 10/25/2015 CKD (chronic kidney disease) stage 3, GF R 30-59 ml/min 10/23/2014 Polycystic kidney disease 08/21/2014 Overview: On clinical trial at [facility], Dr Jacobo Overweight 11/05/2011 Hypertension 10/01/2009 Immunizations Name Administration Dates Next Due COVID-19 (Pfizer) Pt Reported 11/28/2020, 021 Influenza Vaccine-preservati ve Free-quadrivalent 4 Years 06/12/2020 Tdap 09/20/2015 Family History Medical History Relation Name Comments No Known Problems Daughter 1 No Known Problems Daughter 2 Hypertension Father Other Father CA Breast Mother after age 50 Stroke Mother pckd Sister 1 Hypertension Sister 2 CAD Negative Hx Diabetes Negative Hx Relation Name Status Comments Brother Daughter 1 Daughter 2 Father Mother Alive Sister 1 Sister 2 Social History Tobacco Use Types Packs/Day Years Used Date Smoking Tobacco: Never Smokeless Tobacco: Never Alcohol Use Standard Drinks/Week Comments No 0 (1 standard drink = 0.6 oz pur e alcohol) beer/ wine occasional Sex Assigned at Date Recorded Not on file Last Filed Vital Signs Vital Sign Reading Time Taken Comments Blood Pressure 138/78 12/24/2020 10:03 AM EDT Pulse 72 12/24/2020 10:03 AM EDT Temperature 36.9 ??C (98.4 ??F) 07/15/2020 3:39 PM ES T Respiratory Rate 10 12/24/2020 10:03 AM EDT Oxygen Saturation 98% 10/25/2015 1:48 PM EST Inhaled Oxygen Concentration - - Weight 90.7 kg (200 lb) 12/24/2020 10:03 AM EDT Height 180.3 cm (5' 11 ) 12/24/2020 10:03 AM EDT Body Mass Index 27.89 12/24/2020 10:03 AM EDT Plan of Treatment Health Maintenance Due Date Last Done Comments SHINGLES VACCINE (1 of 2) 2015 BASELINE HEALTH EXAM 40-64 06/12/202206/12, 06/12/2020, 02/23/2019, Additional history exists Covid-19 Vaccine (2022-2 4 season) 2024 11/28/2020, 11/07/2020 INFLUENZA (#1) 2024 06/12/2020 (Comp leted), 06/12/2020, 09/20/2015 (Refused) BMI CHECK/ADVISE 09/13/2024 07/12/2020, , 06/12/2020 (Completed), Additional history exists CHOLESTEROL SCREENING 06/12/2025 06/12/2020 , 02/23/2019, 02/21/2018, Additional history exists DTAP/TDAP/TD (2 - Td or Tdap) 09/20/2025 09/20/2015 COLON CANCER SCREENING 10/25/2025 10/25/2015 PNEUMOCOCCAL VACCINE FOR HIG H RISK PATIENTS (#1) 2030 HEPATITIS C SCREENING Completed 08/22/2014 Care Teams Sterilization Technician Relationship Specialty Start Date End Date Barbara Arias MD PCP - General Family Practice 06/09/22
--- OUTSIDE RECORDS SUMMARY | 2024-11-21 09:01 | XMS_ITS | Encounter Summary ---
Author Organization [facility] Address [address] [place] [address] Care Team Providers Care Rip Sawyer Name Role Phone Geo Valreo MD Primary Care Provider Unavail able Barbara Arias MD Primary Care Provider Barbara huynh Encounter Details Date Type Department Care Team Description 02/05/2017 Lending Manager Report Medical Records [address] [place] [id number] Abstract, Provider Social History Tobacco Use Types Packs/Day Years Used Date Smoking Tobacco: Never Alcohol Use Standard Drinks/Week Comments No 0 (1 standard drink = 0.6 oz pur e alcohol) Sex Assigned at Date Recorded Not on file documented as of this encounter Plan of Treatment Not on file documented as of this encounter Visit Diagnoses Not on filedocumented in this encounter Care Teams Rip Sawyer Relationship Specialty Start Date End Date Geo Valero MD PCP - General 10/01/09 06/08/22 Barbara Arias MD PCP - General Family Practice 06/09/22 documented as of this encounter
[2024-11-21 09:44] LABS: Basophils Percent Auto 0.5 % (0-2); Eosinophils Absolute Auto 0.1 X10*3/uL (0.0-0.4); Eosinophils Percent Auto 1.6 % (0-4); Hematocrit 36.7 % (42.0-52.0); Hemoglobin 11.9 g/dl (14.0-18.0); Imm Gran Abs Auto 0.01 X10*3/uL (0.00-0.03); Imm Gran Pct Auto 0.2 % (0.0-0.4); Lymphocytes Absolute Auto 1.6 X10*3/uL (1.2-4.9); Lymphocytes Percent Auto 37.7 % (20-40); Mean Corpuscular HGB Conc 32.4 g/dl (31.0-36.0); Mean Corpuscular Hemoglobin 29.1 pg (27.0-33.0); Mean Corpuscular Volume 89.7 fL (80.0-98.0); Mean Platelet Volume 11.7 fL (9.4-12.4); Monocytes Absolute Auto 0.3 X10*3/uL (0.1-1.2); Monocytes Percent Auto 7.4 % (2-11); Neutrophils Absolute Auto 2.3 x10*3/uL (2.0-8.3); Neutrophils Percent Auto 52.6 % (45-73); Platelet Count 207 X10*3/uL (160-400); Red Blood Count 4.09 X10*6/uL (4.60-5.80); Red Cell Distribution Width 14.1 % (11.0-16.0); White Blood Count 4.3 X10*3/uL (4.8-10.8)
[2024-11-21 10:03] LABS: Appearance Urine Clear; Color Urine Yellow; Glucose Urine UA Negative (Negative); Leukocyte Esterase Urine Negative (Negative); Nitrite Urine Negative (Negative); PH 6.5 (5.0-9.0); UMIC TRIGGER UACC YES; Urine Blood Trace (Negative); Urine Ketones Negative (Negative); Urine Protein 30 (1+) mg/dL (Neg-Trace)
[2024-11-21 10:08] LABS: Bacteria Urine None Seen (None Seen); Hyaline Casts Urine 0-2 /LPF (0-2); RBC Urine 0-2 /HPF (0-2); Squamous Epithelial Cell Urine 0-2 /HPF (0-2); WBC Urine 0-5 /HPF (0-5)
[2024-11-21 10:35] LABS: Alanine Aminotransferase 31 U/L (0-40); Alkaline Phosphatase 93 U/L (39-117); Anion Gap 9 (12-20); Aspartate Amino Transferase 33 U/L (5-37); Bilirubin Total 0.3 mg/dL (0.0-1.0); Blood Urea Nitrogen 29 mg/dL (9-16); Calcium 9.3 mg/dL (8.4-10.2); Carbon Dioxide 28 mmol/L (22-29); Chloride 112 mmol/L (96-108); Cholesterol 172 mg/dL (<200); Estimated Glomerular Filt Rate 25; Glucose Fasting 94 mg/dL (60-99); HDL Cholesterol 41 mg/dL (>40); LDL Cholesterol Calculated 119 mg/dL (<100); Potassium 4.6 mmol/L (3.3-5.1); Sodium 144 mmol/L (135-145); Total Protein 8.3 g/dL (6.5-8.0); Triglycerides 62 mg/dL (<150); Vitamin D 25-OH Total 51.7 ng/mL (>30)
[2024-11-21 11:53] LABS: Creatinine Urine 89.95 mg/dL; Microalbum/Creatinine Ratio Ur 243.4 ug/mg cr (<30)
== END 2024-11-21 08:22 | disposition home or self-care (01) ==
LOC: HO.XRAY 08:21
PROVIDERS: PCP Internal Medicine; Visit Provider Internal Medicine
DX: R19.09 Other intra-abdominal and pelvic swelling, mass and lump (principal); M25.512 Pain in left shoulder; Z00.00 Encounter for general adult medical examination without abnormal findings; N40.0 Benign prostatic hyperplasia without lower urinary tract symptoms; E11.9 Type 2 diabetes mellitus without complications; E55.9 Vitamin D deficiency, unspecified; E78.00 Pure hypercholesterolemia, unspecified; Q61.3 Polycystic kidney, unspecified; I48.0 Paroxysmal atrial fibrillation; D64.9 Anemia, unspecified; Z12.5 Encounter for screening for malignant neoplasm of prostate
CPT/HCPCS: 36415; 73030; 76856; 80053; 80061; 81001; 81003; 82043; 82306; 82570; 84153; 84443; 85025

== ENCOUNTER → 2024-11-21 08:53 | Outpatient (BNV) | payer OTHER, SELFPAY | PROVIDERS: PCP Internal Medicine; Visit Provider Radiology Diagnostic Radiology | DX: M25.512 Pain in left shoulder (principal) | CPT/HCPCS: 73030 ==

== ENCOUNTER 2024-12-19 14:50 | Outpatient (AMB) | payer OTHER, SELFPAY ==
[2024-12-19 15:13] VITALS: BP 130/72; PULSE 60; BMI 29.1
--- NOTE | 2024-12-19 15:13 | MHC.OFFVIS ---
Vital Signs 12/19/24 15:13 Height 5 ft 10 in Weight 202 lb 13.204 oz BMI 29.1 BP 130/72 Blood Pressure Location Lt brachial Position Sitting Pulse 60 Pulse Source Monitor Intake Visit Reasons: [employer]/ Juan/ afib Intake Note: [employer]/Aquillino/Afib Technical Training Coordinator Required: No Accompanied by: Self / Same As Patient Allergies LINDA Inhibitors Allergy (Verified 10/30/24 02:07) Swelling Medication List - Last Reconciled 12/19/24 by Manuel Zarate MD apixaban (Eliquis) 5 mg PO BID carvedilol 25 mg PO BID 90 days cholecalciferol (vitamin D3) 25 mcg PO DAILY nifedipine ER 60 mg PO DAILY olmesartan 40 mg PO DAILY 90 days HPI Comments Details: Very pleasant 59 year gentleman who is here for 1st office visit. He has known history of polycystic kidney disease, hypertension and chronic kidney disease stage 4 and follows with Nephrology at [place]. In 2021 he had a syncopal episode and went to the emergency department and was noticed to be in atrial fibrillation with a rapid ventricular response. At that time he was started on anticoagulation with Eliquis and looks like he converted spontaneously to sinus rhythm. He followed with [facility] after that and apparently was stable. More recently has noticed some episodes of atrial fibrillation based on his [employer] watch. He is saying that he starts feeling fatigued and sometimes short of breath. The longest episode he remembers is last week which was for 3 days. He is denying any chest discomfort. No bleeding issues with Eliquis. He is taking carvedilol and nifedipine along with olmesartan. Blood pressure is well controlled. He is a nonsmoker. COUNT INCLUDES THE [facility] Medical History (Updated 10/30/24 @ 02:24 by Dinh Martinez MD) Overweight (BMI 25.0-29.9) Vitamin D deficiency Essential hypertension Polycystic kidney disease CKD (chronic kidney disease) stage 4, GFR 15-29 ml/min Paroxysmal atrial fibrillation Surgical History No pertinent past surgical history Family History Other FH: mental illness Kidney disease Social History Housing: House Alcohol intake: current Comment: occ Patient Tobacco Use Status: Never used Tobacco service: Yes Current occupational status: employed Current occupational exposures/hazards: No Cognitive needs: No Hearing needs: No Vision needs: Yes Review of Systems Const Denies chills, Denies fatigue, Denies fever(s), Denies frequent falls, Denies weakness, Denies weight gain and Denies weight loss ENT Denies dizziness Card Denies chest pain, Denies leg edema, Denies lightheadedness, Denies palpitations, Denies dyspnea, Denies dyspnea on exertion and Denies orthopnea Resp Denies cough, Denies dyspnea and Denies dyspnea on exertion GI Denies bloating and Denies change in bowel habits Musc Denies muscle weakness, Denies numbness and Denies tingling Neuro Denies dizziness, Denies frequent falls, Denies numbness, Denies tingling and Denies weakness Endo Denies fatigue and Denies palpitations Physical Exam Vital Signs: Last Vital Signs Pulse 60 12/19/24 15:13 BP 130/72 12/19/24 15:13 BMI result Body Mass Index 29.1 GENERAL APPEARANCE: in no acute distress, pleasant. NECK: no carotid bruit, no jugular venous distention. SKIN: no suspicious lesions, warm and dry. HEART: no murmurs, regular rate and rhythm. LUNGS: clear to auscultation bilaterally. ABDOMEN: soft, nontender. EXTREMITIES: no edema. PERIPHERAL PULSES: equal. NEUROLOGIC: No gross deficits, AAO X 3 Office Procedures EKG Details: NSR 60/min, anteroseptal infarct, T wave abnormality-inferior ischemia, QTc 378 msec. [id number], Complete Assessment & Plan Assessment & Plan (1) Essential hypertension: Code(s): I10 - Essential (primary) hypertension Category: Medical (2) Paroxysmal atrial fibrillation: Code(s): I48.0 - Paroxysmal atrial fibrillation Category: Medical Plan Pleasant 59 year gentleman with background history of hypertension, chronic kidney disease stage 4 secondary to polycystic kidney disease and paroxysmal atrial fibrillation. He is on anticoagulation with apixaban and has been tolerating it well. I have discussed with him that this is a long-term medication for him unless any bleeding concerns come up. He has been experiencing some fatigue and shortness of breath when he develops atrial fibrillation. He has been monitoring it with his [employer]. He said the longest episode was recently when it lasted for 3 days. His EKGs showing anteroseptal Q-waves. He does not remember having any myocardial infarction in the past or has not heard about cardiomyopathy from any of his previous physicians. I will arrange an echocardiogram to assess LV for any structural issues including cardiomyopathy. If he truly has cardiomyopathy then we need to do further workup including ischemic evaluation. In that situation I would propose that we do some antiarrhythmic medications. I have also discussed with him in detail about ablation and he will do his on search about it to see if this is something he wishes to consider. The pros and cons of the procedure were discussed with him in detail. Currently we will get echocardiogram to assess LV function and we will make further decisions after that. He will start exercising regularly. I have explained to him that lifestyle changes to make a big difference in cardiovascular disease. Thank you for allowing me to participate in the care of your patient. Please feel free to contact me if you have any questions. Orders: Orders CA echo transthoracic complete Today I48.0 - Paroxysmal atrial fibrillation Coding Level of Care Code New Pt Level 5 (23264) Diagnoses Essential hypertension I10 Paroxysmal atrial fibrillation I48.0 CPT Codes EKG - CPT: 15445-[id number], Complete ([id number])
--- OUTSIDE RECORDS SUMMARY | 2024-12-19 17:55 | XMS_ITS | Clinical Summary ---
Author Organization [facility] it Address [address] [place] [address] Care Team Providers Care Intelligence Officer Name Role Phone Unavailable Primary Care Provider [...] Td or Tdap) 09/20/2025 09/20/2015 RSV Immunization Adult Patients (1 - 1-dose 75+ series) 2040 HIB [...] age to complete this topic Meningococcal B Vaccine Aged Out No l onger eligible based on patient's age to complete [...]
--- OUTSIDE RECORDS SUMMARY | 2024-12-19 17:55 | XMS_ITS | Clinical Summary ---
Author Organization [facility] Address [address] [place] [address] Phone Care Team Providers Care Mass Spec Name Role Phone Alfredo Thomas MD Primary [...] 08/21/2014 Overview (11/23/2022): On clinical trial at [facility], Dr Jacobo Overweight 11/05/2011 Hypertensive disorder [...] Diabetes: Visual Foot Exam 09/16/2022 Influenza Vaccine (Season Ended) 2025 06/12/20 20 Insurance AETNA [place] [id number] AETNA Care Teams Mass Spec Relationship Specialty Start Date End Date Alfredo Thomas MD PCP - General Internal Medicine 07/13/23
--- OUTSIDE RECORDS SUMMARY | 2024-12-19 17:55 | XMS_ITS | Patient Health Record ---
Author Organization [facility] Address [address] [place] [address] Care Team Providers Care Engineer Specialist Name Role Phone Benito Feng Unavailable [phone] Allergies Allergen (clinical drug ingredient) Drug/Non Drug [...] Problem Acquired hammer toe of right foot (8806830389815 105) Other hammer toe(s) (acquired), right foot (M20.41) Active confirmed Problem Tinea unguium (748343782) Tinea unguium (B35.1) Active confirmed Problem Acquired hammer toe of left foot (0989938978446 103) Other hammer toe(s) (acquired), left foot (M20.42) Active confirmed Problem Plantar wart (50981782) Plantar wart (B07.0) Active confirmed Plan Of Treatment Pending Test Test Name Order Date [id number] NAIL, 6 OR MORE 08/19/2022 [id number] Destruction, 1-14 08/19/2022 Insurance Providers Payer Name Payer Address Payer Phone Subscriber Number Group Number Insured Name Patient Relationship to Insured Coverage Start Date Coverage End Date Aetna [address] [place] [address] [id number] Princess Cruz Spouse - patient is the spouse of the insured Medical (General) History Medical History History ICD Code covid-19 Kidney disease Chicken pox Surgical History Surgery Date(Month/Year)
== END 2024-12-19 15:52 | disposition home or self-care (01) ==
LOC: HO.HCS 14:50
PROVIDERS: PCP Internal Medicine; Visit Provider Internal Medicine Cardiovascular Disease
DX: I12.9 Hypertensive chronic kidney disease with stage 1 through stage 4 chronic kidney disease, or unspecified chronic kidney disease (principal); N18.4 Chronic kidney disease, stage 4 (severe); I48.0 Paroxysmal atrial fibrillation; Q61.3 Polycystic kidney, unspecified; R94.31 Abnormal electrocardiogram [ECG] [EKG]
CPT/HCPCS: 93010; 99204

== ENCOUNTER → 2024-12-19 14:50 | Outpatient (BNVA) | payer OTHER, SELFPAY | PROVIDERS: PCP Internal Medicine; Visit Provider Internal Medicine Cardiovascular Disease | DX: I48.0 Paroxysmal atrial fibrillation (principal); I10 Essential (primary) hypertension | CPT/HCPCS: 93005 ==

== ENCOUNTER → 2025-01-08 15:10 | Outpatient (REF) | payer OTHER, SELFPAY ==
--- OUTSIDE RECORDS SUMMARY | 2025-01-08 17:59 | XMS_ITS | Clinical Summary ---
Author Organization [facility] it Address [address] [place] [address] Care Team Providers Care Hide Trimmer Name Role Phone Unavailable Primary Care Provider [...] 5 season) 2024 11/28/2020, 11/07/2020 Influenza Vaccine (Season Ended) 2025 06/12/2020 DTaP,Tdap,and Td Vaccines (2 - Td [...]
--- OUTSIDE RECORDS SUMMARY | 2025-01-08 18:00 | XMS_ITS | Clinical Summary ---
Author Organization [facility] Address [address] [address] Phone Care Team Providers Care Home Hospice Rn Name Role Phone Alfredo Thomas MD Primary [...] Overview (11/23/2022): On clinical trial at [facility], Dr Jacobo Overweight 11/05/2011 Hypertensive disorder 10/01/2009 Immunizations Immunization Administration Dates Next Due Influenza, MDCK, PF, [...] Due Date Last Done Comments Hepatitis B Vaccine (1 of 3 - 19+ 3-dose series) 03/25 Pneumococcal Vaccine: 50+ Years (1 of 2 - PCV) 984 Colorectal Cancer Screening: Annual FOBT 2014 Colorectal Cancer Screening: Colonoscopy 2014 Colorectal Cancer Screening: Sigmoidoscopy 2014 Diabetes: Hemoglobin A1C 09/16/2022 Diabetes: Ophthalmology Exam 09/16/2022 Diabetes: Pedal Pulse Checked 09/16/2022 Diabetes: Sensory Foot Exam 09/16/2022 Diabetes: Visual Foot Exam 09/16/2022 Influenza Vaccine (Season Ended) 2025 06/12/20 20 Insurance Aetna Commercial Aetna Commercial Care Teams Home Hospice Rn Relationship Specialty Start Date End Date Alfredo Thomas MD PCP - General Internal Medicine 07/13/23
--- OUTSIDE RECORDS SUMMARY | 2025-01-08 18:00 | XMS_ITS | Patient Health Record ---
Author Organization [facility] Address [address] [place] [address] Care Team Providers Care Telecom Billing Analyst Name Role Phone Benito Feng Unavailable [phone] Allergies Allergen (clinical drug ingredient) Drug/Non Drug [...] Problem Acquired hammer toe of right foot (2181650834855 105) Other hammer toe(s) (acquired), right foot (M20.41) Active confirmed Problem Tinea unguium (659167033) Tinea unguium (B35.1) Active confirmed Problem Acquired hammer toe of left foot (7178354119739 103) Other hammer toe(s) (acquired), left foot (M20.42) Active confirmed Problem Plantar wart (01622610) Plantar wart (B07.0) Active confirmed Plan Of Treatment Pending Test Test Name Order Date [id number] NAIL, 6 OR MORE 08/19/2022 [id number] Destruction, 1-14 08/19/2022 Insurance Providers Payer Name Payer Address Payer Phone Subscriber Number Group Number Insured Name Patient Relationship to Insured Coverage Start Date Coverage End Date Aetna [address] [place] [address] [id number] Princess Cruz Spouse - patient is the spouse of the insured Medical (General) History Medical History History ICD Code covid-19 Kidney disease Chicken pox Surgical History Surgery Date(Month/Year)
== END ==
LOC: HO.CARD 15:10
PROVIDERS: PCP Internal Medicine; Visit Provider Internal Medicine Cardiovascular Disease
DX: I48.0 Paroxysmal atrial fibrillation (principal)
CPT/HCPCS: 93306

== ENCOUNTER → 2025-01-08 15:12 | Outpatient (BNV) | payer OTHER, SELFPAY | PROVIDERS: PCP Internal Medicine; Visit Provider Internal Medicine Cardiovascular Disease | DX: I42.2 Other hypertrophic cardiomyopathy (principal) | CPT/HCPCS: 93306; 93356 ==

== ENCOUNTER 2025-01-22 15:54 | Outpatient (AMB) | payer OTHER, SELFPAY ==
--- OUTSIDE RECORDS SUMMARY | 2025-01-22 15:57 | XMS_ITS | Patient Health Record ---
Author Organization [facility] Address [address] [place] [address] Care Team Providers Care Promos Executive Producer Name Role Phone Benito Feng Unavailable [phone] Allergies Allergen (clinical drug ingredient) Drug/Non Drug [...] Problem Acquired hammer toe of right foot (7816900423232 105) Other hammer toe(s) (acquired), right foot (M20.41) Active confirmed Problem Tinea unguium (056155962) Tinea unguium (B35.1) Active confirmed Problem Acquired hammer toe of left foot (9030604948527 103) Other hammer toe(s) (acquired), left foot (M20.42) Active confirmed Problem Plantar wart (52521257) Plantar wart (B07.0) Active confirmed Plan Of Treatment Pending Test Test Name Order Date [id number] NAIL, 6 OR MORE 08/19/2022 [id number] Destruction, 1-14 08/19/2022 Insurance Providers Payer Name Payer Address Payer Phone Subscriber Number Group Number Insured Name Patient Relationship to Insured Coverage Start Date Coverage End Date Aetna [address] [place] [phone] [id number] Princess Cruz Spouse - patient is the spouse of the insured Medical (General) History Medical History History ICD Code covid-19 Kidney disease Chicken pox Surgical History Surgery Date(Month/Year)
--- OUTSIDE RECORDS SUMMARY | 2025-01-22 15:57 | XMS_ITS | Clinical Summary ---
Author Organization [facility] it Address [address] [place] [address] Care Team Providers Care Mold Yard Supervisor Name Role Phone Unavailable Primary Care Provider [...]
--- OUTSIDE RECORDS SUMMARY | 2025-01-22 15:57 | XMS_ITS | Clinical Summary ---
Author Organization [facility] Address [address] [place] [address] Phone Care Team Providers Care Lumber Grader Name Role Phone Alfredo Thomas MD Primary [...] Overview (11/23/2022): On clinical trial at [facility], Dr Jacobo Overweight 11/05/2011 Hypertensive [...] Insurance Aetna Commercial Aetna Commercial Care Teams Lumber Grader Relationship Specialty Start Date End Date Alfredo Thomas MD PCP - General Internal Medicine 07/13/23
[2025-01-22 15:59] VITALS: BP 132/80; PULSE 71; O2SAT 97; BMI 28.4
--- NOTE | 2025-01-22 15:59 | MHC.PC.OV ---
Vital Signs 01/22/25 15:59 Height 5 ft 10 in Weight 198 lb BMI 28.4 BP 132/80 Blood Pressure Location Lt brachial Position Sitting Pulse 71 Pulse Source Pulse Oximeter Pulse Oximetry (%) 97 Oxygen Delivery Method Room Air Intake Visit Reasons: PAF, CKD, HTN Bullet Slugs Inspector Required: No Accompanied by: Self / Same As Patient Allergies LINDA Inhibitors Allergy (Verified 01/22/25 16:40) Swelling Medication List - Last Reconciled 01/22/25 by Dinh Martinez MD apixaban (Eliquis) 5 mg PO BID carvedilol 25 mg PO BID 90 days cholecalciferol (vitamin D3) 25 mcg PO DAILY nifedipine ER 60 mg PO DAILY olmesartan 40 mg PO DAILY 90 days Tobacco use date assessed: 01/22/25 Dental Screening Dental Screen Date: 01/22/25 Did you have a dental visit in the last 12 months?: Yes Did you have a dental problem in the last 6 months where you did not have access to dental care?: No Was dental information given to patient?: Patient has dentist HPI PAF, CKD, HTN HPI Details Patient comes in today for his follow up visit States that he has noticed a fairly large-sized nodule over his left breast area over the past few days No pain associated with his left breast nodule Adds that he thinks that he may have a hernia over his left suprapubic area - notes that he frequently has a discomfort/pressure-like sensation and sometimes pain over this area States that he feels okay otherwise He denies any headaches or dizziness Denies any chest pains, no SOB No nausea/vomiting, no abdominal pain except over the aforementioned right side of the abdomen No change in bowel habits noted He has been referred for screening colonoscopy a few months ago and is scheduled to be seen by GI for this in March 2025 [facility] Medical History (Updated 01/29/25 @ 03:20 by Dinh Martinez MD) Overweight (BMI 25.0-29.9) Vitamin D deficiency Essential hypertension Polycystic kidney disease CKD (chronic kidney disease) stage 4, GFR 15-29 ml/min Paroxysmal atrial fibrillation Surgical History No pertinent past surgical history Family History Other FH: mental illness Kidney disease Social History Housing: House Alcohol intake: current Comment: occ Patient Tobacco Use Status: Never used Tobacco e-Cigarette/Vaping Use: Never Used service: Yes Current occupational status: employed Current occupational exposures/hazards: No Cognitive needs: No Hearing needs: No Vision needs: Yes Questionnaire PHQ-9 Over the last 2 weeks, how often have you been bothered by any of the following problems? 1. Little interest or pleasure in doing things: not at all 2. Feeling down, depressed, or hopeless: not at all 3. Trouble falling or staying asleep, or sleeping too much: not at all 4. Feeling tired or having little energy: several days 5. Poor appetite or overeating: not at all 6. Feeling bad about yourself - or that you are a failure or have let yourself or your family down: not at all 7. Trouble concentrating on things, such as reading the newspaper or watching television: not at all 8. Moving or speaking so slowly that other people could have noticed. Or the opposite - being so fidgety or restless that you have been moving around a lot more than usual: not at all 9. Thoughts that you would be better off or of hurting yourself in some way: not at all Total score: 1 Depression Screening Interpretation: Negative Depression Screening Done: Yes 81431 - PHQ-9 Billing: Yes Source: Developed by Drs. Gustavo Peterson, Noemy Garcia, Jeffrey Starr and colleagues, with an educational sulema from [employer]. Thrive Questionnaire Date Thrive assessed: 01/22/25 I am a: Patient What is your living situation today?: I have a steady place to live Within the past 12 months, did the food you bought not last and you didn't have the money to get more?: Never true Within the past 12 months, did you worry whether your food would run out before you got money to buy more?: Never true Do you have trouble paying for medicines?: No Do you have trouble getting transportation to medical appointments?: No Do you have trouble paying your heating and electricity bill?: No Do you have trouble taking care of your child, family member or friend?: No Do you have trouble with day-to-day activities such as bathing, preparing meals, shopping, managing finances, etc.?: No Are you currently unemployed and looking for a job?: No Are you interested in more education?: Yes Please select the resources that you would like help with: None Currently or been in a relationship where the following occur: No concerns reported THRIVE Score: 0 AUDIT C Alcohol Use Questionnaire (AUDIT-C) 1. How often do you have a drink containing alcohol?: Monthly or less 2. How many drinks containing alcohol do you have on a typical day when you are drinking?: 1 or 2 3. How often do you have six or more drinks on one occasion?: Never Total Score: 1 Score Reviewed/Action Taken: Yes AYLEEN-7 AMB Questionnaire AYLEEN-7 Date AYLEEN - 7 assessed: 01/22/25 Feeling nervous, anxious, or on edge: 0 = Not at all Not being able to stop or control worryin = Not at all Worrying too much about different things: 0 = Not at all Trouble relaxin = Several days Being so restless that it is hard to sit still: 0 = Not at all Becoming easily annoyed or irritable: 1 = Several days Feeling afraid as if something awful might happen: 0 = Not at all Total AYLEEN-7 score (0-4 normal; 5-9 mild; 10-14 moderate; 15-21 severe): 2 Source: Developed by Drs. Gustavo Peterson, Noemy Garcia, Jeffrey Starr and colleagues, with an educational sulema from [employer]. Review of Systems Const Denies chills, Denies fatigue, Denies fever(s) and Denies headache(s) ENT Denies dysphagia, Denies dizziness, Denies otalgia, Denies headache(s), Denies neck pain, Denies odynophagia and Denies sore throat Card Denies chest pain, Denies palpitations and Denies dyspnea Resp Denies chest congestion, Denies cough and Denies dyspnea GI Details: (+) recurrent discomfort and pressure-like sensation over the left suprapubic area - see HPI for details Denies abdominal pain, Denies constipation, Denies dysphagia, Denies heartburn, Denies diarrhea, Denies nausea, Denies odynophagia and Denies vomiting Denies difficulty urinating, Denies dysuria, Denies nocturia and Denies urinary frequency Musc Denies back pain and Denies neck pain Skin/Breast Details: (+) palpable nodule over the left breast Denies rash Neuro Denies dizziness and Denies headache(s) Endo Denies fatigue and Denies palpitations Physical exam (Primary Care) Vital Signs: Last Vital Signs Pulse 71 01/22/25 15:59 BP 132/80 01/22/25 15:59 Pulse Ox 97 01/22/25 15:59 Oxygen Delivery Method Room Air 01/22/25 15:59 BMI result Body Mass Index 28.4 Tobacco/Smoking Status: Tobacco use Status Tobacco use date assessed 01/22/25 01/22/25 16:08 Patient Tobacco Use Status Never used Tobacco 01/22/25 16:08 e-Cigarette/Vaping Use Never Used 01/22/25 16:08 PHQ-9: PHQ-9 Score PHQ-9: Total score 1 01/22/25 16:49 Depression Screening Interpretation: Negative Thrive Assessment: Date of Thrive Assessment Date Thrive assessed 01/22/25 01/22/25 16:08 Currently or been in a relationship where the following occur: No concerns reported Const General: no acute distress and alert HENMT Ears: TM's normal bilaterally and EAC's normal Throat: Yes posterior oropharynx normal and Yes tonsils normal (no TP congestion) Neck Neck: Yes supple and No lymphadenopathy Thyroid: Thyroid normal Chest Other: (+) palpable, non-tender nodule over the left breast Resp Auscultation: clear to auscultation bilaterally, no rales and no wheezes Cardio Rate: regular rate Rhythm: regular rhythm Heart sounds: no murmurs GI Palpation (GI): Soft to palpation, nontender and Palpable mass present ((+) small reducible palpable mass over the left suprapubic area) Auscultation: normal bowel sounds General: Yes no CVA tenderness Back/Spine/Pelvis Back: no CVA tenderness Thoracic/Lumbar Spine: No lumbar spinal tenderness Skin Rashes: no rashes Extrem General: Yes no clubbing, cyanosis or edema Results Reviewed Results Reviewed: Laboratory Tests 11/21/24 11/21/24 08:42 08:47 WBC 4.3 L Hgb 11.9 L Hct 36.7 L Plt Count 207 Sodium 144 Potassium 4.6 Creatinine 2.64 H Estimated GFR 25 Fasting Glucose 94 Calcium 9.3 AST 33 ALT 31 Triglycerides 62 Cholesterol 172 LDL Cholesterol, Calc 119 H HDL Cholesterol 41 Prostate Specific Ag 0.80 25-OH Vitamin D Total 51.7 TSH 0.90 Ur Specific Marcella 1.010 Urine Protein 30 (1+) H Urine Glucose (UA) Negative Urine Blood Trace H Urine Nitrite Negative Ur Leukocyte Esterase Negative Microalb/Creat Ratio 243.4 H Coding Level of Care Code Est Pt Level 4 (42246) Diagnoses Paroxysmal atrial fibrillation I48.0 Essential hypertension I10 CKD (chronic kidney disease) stage 4, GFR 15-29 ml/min N18.4 Abdominal wall mass of suprapubic region R19.09 Breast nodule N63.0 Vitamin D deficiency E55.9 Overweight (BMI 25.0-29.9) E66.3 Additional Codes PHQ-9 - 72193 - PHQ-9 Billing: Yes ([id number]) Assessment & Plan Assessment & Plan (1) Paroxysmal atrial fibrillation: Code(s): I48.0 - Paroxysmal atrial fibrillation Category: Medical Plan: Patient currently remains in sinus rhythm Continue Eliquis 5 mg BID thromboembolism prophylaxis Patient states that he has not seen Cardiology for follow-up in a couple of years now - will go ahead and refer him to [facility] Cardiology for continuing cardiology follow-up and management (2) Essential hypertension: Code(s): I10 - Essential (primary) hypertension Category: Medical Plan: Results of his labs done a couple of months ago reviewed and discussed with patient Reinforced low sodium diet - goal is systolic BP of 120 to 130 mm or less Continue Carvedilol 25 mg BID, Nifedipine ER 60 mg QD and Olmesartan 40 mg QD Patient is reminded to continue monitoring his blood pressure regularly (3) CKD (chronic kidney disease) stage 4, GFR 15-29 ml/min: Code(s): N18.4 - Chronic kidney disease, stage 4 (severe) Category: Medical Plan: Will recheck his serum creatinine and GFR for follow-up and will continue to monitor his renal function closely/regularly Follow-up with nephrology (Dr. Gonzáles) as scheduled (4) Abdominal wall mass of suprapubic region: Code(s): R19.09 - Other intra-abdominal and pelvic swelling, mass and lump Category: Medical Plan: His pelvic ultrasound done a couple of months ago came back normal As patient continues to c/o recurrent pain and discomfort over this area, will refer him to surgery for further evaluation and management (5) Breast nodule: Comment: left Code(s): N63.0 - Unspecified lump in unspecified breast Category: Medical Plan: Will send patient for a diagnostic mammogram of the left breast for further evaluation (6) Vitamin D deficiency: Code(s): E55.9 - Vitamin D deficiency, unspecified Category: Medical Plan: Continue Vitamin D3 1000 units QD (7) Overweight (BMI 25.0-29.9): Code(s): E66.3 - Overweight Category: Medical Plan: Reinforce diet/exercise as tolerated/lose weight Plan Follow-up in 3 months Orders: Orders MM tomosynthesis diagnostic LT 01/22/25 N63.0 - Unspecified lump in unspecified breast Lipid Panel 3 Months E78.00 - Pure hypercholesterolemia, unspecified Comprehensive [place]. Panel Fast 3 Months E78.00 - Pure hypercholesterolemia, unspecified Complete Blood Count Auto Diff 3 Months D64.9 - Anemia, unspecified Referrals General Surgery Referral K43.9 - Ventral hernia without obstruction or gangrene
== END 2025-01-22 16:58 | disposition home or self-care (01) ==
LOC: HO.HMCH 15:55
PROVIDERS: PCP Internal Medicine; Visit Provider Internal Medicine
DX: I48.0 Paroxysmal atrial fibrillation (principal); I12.9 Hypertensive chronic kidney disease with stage 1 through stage 4 chronic kidney disease, or unspecified chronic kidney disease; N18.4 Chronic kidney disease, stage 4 (severe); R19.09 Other intra-abdominal and pelvic swelling, mass and lump; N63.0 Unspecified lump in unspecified breast; E55.9 Vitamin D deficiency, unspecified; E66.3 Overweight

== ENCOUNTER → 2025-01-22 15:54 | Outpatient (BNVA) | payer OTHER, SELFPAY | PROVIDERS: PCP Internal Medicine; Visit Provider Internal Medicine | DX: I48.0 Paroxysmal atrial fibrillation (principal); I12.9 Hypertensive chronic kidney disease with stage 1 through stage 4 chronic kidney disease, or unspecified chronic kidney disease; N18.4 Chronic kidney disease, stage 4 (severe); R19.09 Other intra-abdominal and pelvic swelling, mass and lump; N63.20 Unspecified lump in the left breast, unspecified quadrant; E55.9 Vitamin D deficiency, unspecified; E66.3 Overweight; Z68.28 Body mass index [BMI] 28.0-28.9, adult; Z79.01 Long term (current) use of anticoagulants; Z79.899 Other long term (current) drug therapy | CPT/HCPCS: 96127 ==

== ENCOUNTER 2025-02-28 12:10 | Outpatient (REF) | payer OTHER, SELFPAY ==
--- NOTE | ~2025-02-28 | US_ITS ---
EXAMINATION: MM DIAGNOSTIC DIGITAL BREAST TOMOSYNTHESIS, BILATERAL Limited left breast ultrasound. CLINICAL INFORMATION: Left breast palpable and tender lump retroareolar region. COMPARISON: Mammography: Comparison is made with relevant prior exams. TECHNIQUE: Digital breast mammography with tomosynthesis is performed in both the craniocaudal and mediolateral oblique views along with computer-aided detection (CAD). FINDINGS: Right: No suspicious calcifications masses or other abnormal findings. Left: [place] marker retroareolar region at site of patient's palpable and painful lump with retroareolar March nodular gynecomastia. No suspicious calcifications or other abnormal findings. Targeted color Doppler ultrasound scanning in the left retroareolar region demonstrates marked nodular retroareolar gynecomastia. There is no other sonographic abnormal findings. Results are discussed with the patient at time of visit. US/US breast LT limited IMPRESSION: Right: Negative. Left: Mild retroareolar nodular gynecomastia. Benign. Recommend clinical evaluation and follow-up. ASSESSMENT: BI-RADS BI-RADS 2 - Benign Findings RECOMMENDATION: Recommend clinical evaluation and followup. Electronically signed by: Melvina Camilo DO 02/28/2025 02:43 PM EDT
--- NOTE | ~2025-02-28 | MM_ITS ---
EXAMINATION: MM DIAGNOSTIC DIGITAL BREAST TOMOSYNTHESIS, BILATERAL Limited left breast ultrasound. CLINICAL INFORMATION: Left breast palpable and tender lump retroareolar region. COMPARISON: Mammography: Comparison is made with relevant prior exams. TECHNIQUE: Digital breast mammography with tomosynthesis is performed in both the craniocaudal and mediolateral oblique views along with computer-aided detection (CAD). FINDINGS: Right: No suspicious calcifications masses or other abnormal findings. Left: [place] marker retroareolar region at site of patient's palpable and painful lump with retroareolar March nodular gynecomastia. No suspicious calcifications or other abnormal findings. Targeted color Doppler ultrasound scanning in the left retroareolar region demonstrates marked nodular retroareolar gynecomastia. There is no other sonographic abnormal findings. Results are discussed with the patient at time of visit. MM/MM tomosynthesis diagnostic BI IMPRESSION: Right: Negative. Left: Mild retroareolar nodular gynecomastia. Benign. Recommend clinical evaluation and follow-up. ASSESSMENT: BI-RADS BI-RADS 2 - Benign Findings RECOMMENDATION: Recommend clinical evaluation and followup. Electronically signed by: Melvina Camilo DO 02/28/2025 02:43 PM EDT
--- OUTSIDE RECORDS SUMMARY | 2025-02-28 14:03 | XMS_ITS | Clinical Summary ---
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
== END 2025-02-28 12:11 | disposition home or self-care (01) ==
LOC: HO.MAMMO 12:10
PROVIDERS: PCP Internal Medicine; Visit Provider Internal Medicine
DX: N62 Hypertrophy of breast (principal); N63.20 Unspecified lump in the left breast, unspecified quadrant
CPT/HCPCS: 76642; 77062; 77066

== ENCOUNTER → 2025-02-28 12:13 | Outpatient (BNV) | payer OTHER, SELFPAY | PROVIDERS: PCP Internal Medicine; Visit Provider Internal Medicine | DX: N62 Hypertrophy of breast (principal) | CPT/HCPCS: 76642; 77062; 77066 ==

== ENCOUNTER 2025-03-01 09:36 | Outpatient (AMB) | payer OTHER, SELFPAY ==
--- NOTE | 2025-03-01 09:40 | MHC.OFFVIS ---
Vital Signs 03/01/25 09:49 Height 5 ft 10 in Weight 194 lb BMI 27.8 BP 134/88 Blood Pressure Location Lt brachial Position Sitting Pulse 59 Intake Visit Reasons: Ventral hernia Intake Note: Patient is seen in office for evaluation of a ventral hernia. 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 He denies any significant pain, nausea, vomiting, or bowel changes. He denies any previous surgery in this location. The lump is noted to increase in size with standing and lifting but does reduce when in the supine position. He is requesting repair of these bilateral hernias. [facility] Medical History (Updated 03/01/25 @ 10:06 by Sammy Valenzuela MD) Bilateral inguinal hernia without obstruction or gangrene Overweight (BMI 25.0-29.9) Vitamin D deficiency Essential hypertension Polycystic kidney disease CKD (chronic kidney disease) stage 4, GFR 15-29 ml/min Paroxysmal atrial fibrillation Surgical History No pertinent past surgical history Family History Other FH: mental illness Kidney disease Social History Housing: House Alcohol intake: current Comment: [facility] Patient Tobacco Use Status: Never used Tobacco e-Cigarette/Vaping Use: Never Used service: Yes Current occupational status: employed Current occupational exposures/hazards: No Cognitive needs: No Hearing needs: No Vision needs: Yes Review of Systems Const All systems reviewed & are unremarkable except as noted in HPI and below Physical Exam Vital Signs: Last Vital Signs Pulse 59 03/01/25 09:49 BP 134/88 03/01/25 09:49 BMI result Body Mass Index 27.8 Const General: cooperative and no acute distress Nutritional Appearance: well nourished Orientation/consciousness: patient oriented x3 Limitations: no limitations HEENT Head: Yes normocephalic and Yes atraumatic Ears: hearing grossly normal bilaterally Resp Effort & Inspection: normal respiratory effort, no audible wheezes, no cough and no respiratory distress Cardio Jugular venous distension: no JVD GI Other: Examination in the standing position reveals bilateral inguinal hernias which reduce with light pressure. The hernias were noted to increase in size with Valsalva maneuvers. There is no tenderness to palpation. Inspection: Yes normal to inspection Skin Other: Warm, dry, no rash Neuro General: patient oriented x3 Extrem General: Yes no clubbing, cyanosis or edema Assessment & Plan Assessment & Plan (1) Bilateral inguinal hernia without obstruction or gangrene: Code(s): K40.20 - Bilateral inguinal hernia, without obstruction or gangrene, not specified as recurrent Category: Medical Qualifiers: Recurrence: non-recurrent Qualified Code(s): K40.20 - Bilateral inguinal hernia, without obstruction or gangrene, not specified as recurrent Plan 59-year-old male patient with a history of paroxysmal atrial fibrillation, polycystic kidney disease with CKD 4, found to have bilateral inguinal hernias. He has no other abdominal symptoms. On examination he is reducible bilateral inguinal hernias which are nontender to palpation. I recommended repair of the bilateral inguinal hernias with mesh as a short-stay surgery and after discussion of the procedure, risks, and alternatives, he consents to the surgery. Ideally he should hold the Eliquis for several days prior to surgery to reduce the chances of bleeding postoperatively. He is planning a trip to [place] in May which may affect the timing of his surgery. Coding Level of Care Code New Pt Level 4 (60281) Diagnoses Non-recurrent bilateral inguinal hernia without obstruction or gangrene K40.20 Recurrence: non-recurrent
[2025-03-01 09:49] VITALS: BP 134/88; PULSE 59; BMI 27.8
--- OUTSIDE RECORDS SUMMARY | 2025-03-01 10:29 | XMS_ITS | Clinical Summary ---
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
== END 2025-03-01 10:01 | disposition home or self-care (01) ==
LOC: HO.HGS 09:37
PROVIDERS: PCP Internal Medicine; Visit Provider Surgery
DX: K40.20 Bilateral inguinal hernia, without obstruction or gangrene, not specified as recurrent (principal)
CPT/HCPCS: 99204

== ENCOUNTER → 2025-03-01 09:36 | Outpatient (BNVA) | payer OTHER, SELFPAY | PROVIDERS: PCP Internal Medicine; Visit Provider Surgery ==

== ENCOUNTER 2025-03-26 09:03 | Outpatient (AMB) | payer OTHER, SELFPAY ==
--- NOTE | 2025-03-26 09:09 | A.OFFVIS_ITS ---
Vital Signs 03/26/25 09:11 Height 5 ft 10 in Weight 196 lb 3.382 oz BMI 28.2 BP 140/90 H Blood Pressure Location Lt brachial Position Sitting Pulse 51 Pulse Source Monitor Intake Visit Reasons: 3 mth f/up/echo/hernia repair with mesh clearance Intake Note: 3 mth f/up Utility Person Required: No Accompanied by: Self / Same As Patient Allergies LINDA Inhibitors Allergy (Verified 03/01/25 09:41) Swelling Medication List - Last Reconciled 03/26/25 by Manuel Zarate MD apixaban (Eliquis) 5 mg PO BID 90 days carvedilol 25 mg PO BID 90 days cholecalciferol (vitamin D3) 25 mcg PO DAILY nifedipine ER 60 mg PO DAILY olmesartan 40 mg PO DAILY HPI Comments Details: Very pleasant 60-year-old gentleman who is here for follow-up. He has known history of polycystic kidney disease, hypertension and chronic kidney disease stage 4 and follows with Nephrology at [place]. In 2021 he had a syncopal episode and went to the emergency department and was noticed to be in atrial fibrillation with a rapid ventricular response. At that time he was started on anticoagulation with Eliquis and looks like he converted spontaneo usly to sinus rhythm. He followed with [facility] after that and apparently was stable. More recently has noticed some episodes of atrial fibrillation based on his [employer] watch. He is saying that he starts feeling fatigued and sometimes short of breath. The longest episode he remembers is last week which was for 3 days. He is denying any chest discomfort. No bleeding issues with Eliquis. He is taking carvedilol and nifedipine along with olmesartan. Blood pressure is well controlled. He is a nonsmoker. 03/26/2025: He is here for follow-up. He had echocardiography performed in December which showed normal biventricular function. He is in need of hernia surgery and is here for perioperative cardiovascular risk assessment. Doing well. He has no exertional complaints currently. He is able to climb 2 flights of stairs without stopping without any significant symptoms. Blood pressure is elevated. [facility] Medical History (Updated 03/26/25 @ 09:14 by Manuel Zarate MD) Bilateral inguinal hernia without obstruction or gangrene Overweight (BMI 25.0-29.9) Vitamin D deficiency Essential hypertension Polycystic kidney disease CKD (chronic kidney disease) stage 4, GFR 15-29 ml/min Paroxysmal atrial fibrillation Surgical History No pertinent past surgical history Family History Other FH: mental illness Kidney disease Social History Housing: House Alcohol intake: current Comment: occ Patient Tobacco Use Status: Never used Tobacco e-Cigarette/Vaping Use: Never Used service: Yes Current occupational status: employed Current occupational exposures/hazards: No Cognitive needs: No Hearing needs: No Vision needs: Yes Review of Systems Const Denies chills, Denies fatigue, Denies fever(s), Denies frequent falls, Denies weakness, Denies weight gain and Denies weight loss ENT Denies dizziness Card Denies chest pain, Denies leg edema, Denies lightheadedness, Denies palpitations, Denies dyspnea and Denies dyspnea on exertion Resp Denies cough, Denies dyspnea and Denies dyspnea on exertion GI Denies hematochezia Musc Denies abnormal gait, Denies muscle weakness, Denies numbness, Denies radiating pain into limb and Denies tingling Neuro Denies abnormal gait, Denies dizziness, Denies frequent falls, Denies numbness, Denies tingling and Denies weakness Endo Denies fatigue and Denies palpitations Physical Exam GENERAL APPEARANCE: in no acute distress, pleasant. NECK: no carotid bruit, no jugular venous distention. SKIN: no suspicious lesions, warm and dry. HEART: no murmurs, regular rate and rhythm. LUNGS: clear to auscultation bilaterally. ABDOMEN: soft, nontender. EXTREMITIES: no edema. PERIPHERAL PULSES: equal. NEUROLOGIC: No gross deficits, AAO X 3 Office Procedures EKG Details: Sinus bradycardia with first-degree AV block, normal axis, poor R-wave progression and can not rule out septal infarct, inferior T-wave inversions, QTC 368 milliseconds. [id number], Complete Results Reviewed Results Reviewed: Echocardiography performed December 2024 showing EF 65-70 %, indeterminate filling pressures, normal global longitudinal strain and normal right ventricular size and function. Assessment & Plan Assessment & Plan (1) Hypertension: Code(s): I10 - Essential (primary) hypertension Category: Medical Qualifiers: Hypertension type: secondary to other renal disorders Qualified Code(s): I15.1 - Hypertension secondary to other renal disorders (2) Paroxysmal atrial fibrillation: Code(s): I48.0 - Paroxysmal atrial fibrillation Category: Medical (3) Preop cardiovascular exam: Code(s): Z01.810 - Encounter for preprocedural cardiovascular examination Category: Medical Plan Pleasant 60-year-old gentleman who is presenting for follow-up. He has history of polycystic kidney disease and atrial fibrillation. He also has hypertension. Echocardiography has shown normal biventricular function. He is denying any chest discomfort or significant shortness of breath with activities. He is intermediate risk for perioperative complications and can proceed with surgery. He will have to hold Eliquis for at least 48 hours before surgery. Blood pressure is elevated and I have advised him to increase the nifedipine to 90 mg daily. He will be seeing his field automobile adjuster this week and will have repeat blood pressure testing there. We discussed about ablation and antiarrhythmic medications. He is in favor of doing ablation but wishes to do the hernia surgery 1st. Follow up with us in 6 months. Thank you for allowing me to participate in the care of your patient. Please feel free to contact me if you have any questions. Medications: New nifedipine ER 90 mg PO DAILY 90 tabs 3RF Discontinued nifedipine ER Discontinued Reason: Doctor's Order 60 mg PO DAILY 90 tabs 3RF Coding Level of Care Code Est Pt Level 4 (00895) Diagnoses Hypertension secondary to other renal disorders I15.1 Hypertension type: secondary to other renal disorders Paroxysmal atrial fibrillation I48.0 Preop cardiovascular exam Z01.810 CPT Codes EKG - CPT: 83474-[id number], Complete ([id number])
[2025-03-26 09:11] VITALS: BP 140/90; PULSE 51; BMI 28.2
--- OUTSIDE RECORDS SUMMARY | 2025-03-26 09:21 | XMS_ITS | Clinical Summary ---
Author Organization [facility] Address [address] [place] [address] Phone Care Team Providers Care Tobacco Grader Name Role Phone Alfredo Thomas MD [...] 08/21/2014 Overview (11/23/2022): On clinical trial at [facility], Dr Jacobo Overweight 11/05/2011 Hypertensive disorder [...] Visual Foot Exam 09/16/2022 Influenza Vaccine (#1) 2025 06/12/2020 Insurance Aetna Commercial Aetna Commercial Care Teams Tobacco Grader Relationship Specialty Start Date End Date Alfredo Thomas MD PCP - General Internal Medicine 07/13/23
--- OUTSIDE RECORDS SUMMARY | 2025-03-26 09:21 | XMS_ITS | Clinical Summary ---
Author Organization [facility] Address [address] [place] [address] Care Team Providers Care Layup Worker Name Role Phone Unavailable Primary Care Provider [...] Due Date Last Done Comments Pneumococcal Vaccine: 50+ Years (1 of 1 - PCV) 2015 Zoster Vaccines (1 of 2) 2015 COVID-19 Vaccine ( - 2023-2 5 season) 2024 11/28/2020, 11/07/2020 Influenza Vaccine (#1) 2025 06/12/2020 DTaP,Tdap,and Td Vaccines (2 - [...] patient's age to complete this topic Hepatitis B Vaccines Aged Out No long er eligible [...]
== END 2025-03-26 09:33 | disposition home or self-care (01) ==
LOC: HO.HCS 09:04
PROVIDERS: PCP Internal Medicine; Visit Provider Internal Medicine Cardiovascular Disease
DX: I15.1 Hypertension secondary to other renal disorders (principal); I48.0 Paroxysmal atrial fibrillation; Z01.810 Encounter for preprocedural cardiovascular examination
CPT/HCPCS: 93010; 99214

== ENCOUNTER → 2025-03-26 09:03 | Outpatient (BNVA) | payer OTHER, SELFPAY | PROVIDERS: PCP Internal Medicine; Visit Provider Internal Medicine Cardiovascular Disease | DX: I15.1 Hypertension secondary to other renal disorders (principal) | CPT/HCPCS: 93005 ==

== ENCOUNTER 2025-03-29 09:48 | Outpatient (AMB) | payer OTHER, SELFPAY ==
--- NOTE | 2025-03-29 09:53 | HO.NEPHOV_ITS ---
Vital Signs 03/29/25 09:54 Height 5 ft 10 in Weight 194 lb 8 oz BMI 27.9 BP 154/110 H Blood Pressure Location Lt brachial Position Sitting Pulse 52 Pulse Source Pulse Oximeter Pulse Oximetry (%) 97 Oxygen Delivery Method Room Air Intake Visit Reasons: f/u Bolt Machine Operator Required: No Accompanied by: Self / Same As Patient Allergies LINDA Inhibitors Allergy (Verified 03/29/25 09:54) Swelling HPI Comments Details: Roly is a 60-year-old gentleman with baseline serum creatinine between 2-2.6 due to adult polycystic kidney disease was seen in follow-up today. He was enrolled in 2 clinical trials in [facility], one was Bardoxolone vs Placebo which he is not following up anymore. He has history of systolic hypertension as well as paroxysmal atrial fibrillation. He has had no flank pain, dysuria, hematuria, kidney stones, nausea, vomiting, fever, chills, urinary symptoms, chest pain, orthostatic symptoms, paroxysmal nocturnal dyspnea, orthopnea. He has strong family history of polycystic kidney disease with father and sister. His father started intermittent hemodialysis at age of 67 & her sister started dialysis in her 40s however was able to successfully get a renal transplant. He has no history of any infected cyst or rupture of his either. He is compliant with his medications and low-sodium diet. His dad had an aneurysm(PKD). He had inguinal hernias and saw Dr Valenzuela. He is going to get it repaired in August. He has not taken his BP medications this AM. [facility] Medical History Bilateral inguinal hernia without obstruction or gangrene Overweight (BMI 25.0-29.9) Vitamin D deficiency Essential hypertension Polycystic kidney disease CKD (chronic kidney disease) stage 4, GFR 15-29 ml/min Paroxysmal atrial fibrillation Surgical History No pertinent past surgical history Family History Other FH: mental illness Kidney disease Social History Housing: House Alcohol intake: current Comment: occ Patient Tobacco Use Status: Never used Tobacco e-Cigarette/Vaping Use: Never Used service: Yes Current occupational status: employed Current occupational exposures/hazards: No Cognitive needs: No Hearing needs: No Vision needs: Yes Review of Systems Const All systems reviewed & are unremarkable except as noted in HPI and below Physical Exam Vital Signs: Last Vital Signs Pulse 52 03/29/25 09:54 BP 154/110 H 03/29/25 09:54 Pulse Ox 97 03/29/25 09:54 Oxygen Delivery Method Room Air 03/29/25 09:54 BMI result Body Mass Index 27.9 Const General: comfortable and no acute distress Orientation/consciousness: patient oriented x3 HEENT Head: Yes normocephalic Mouth: Normal oral and palatal mucosa present Eyes EOM: EOMs intact bilaterally Neck Neck: Yes supple Resp Auscultation: clear to auscultation bilaterally Cardio Jugular venous distension: no JVD Rate: regular rate GI Palpation (GI): Soft to palpation Auscultation: normal bowel sounds General: Yes no CVA tenderness Back/Spine/Pelvis Back: no CVA tenderness Skin General skin exam: no rashes or lesions noted Neuro General: patient oriented x3 and moves all extremities Extrem General: Yes no pedal edema Assessment & Plan Assessment & Plan (1) Hypertension: Code(s): I10 - Essential (primary) hypertension Category: Medical Qualifiers: Hypertension type: secondary to other renal disorders Qualified Code(s): I15.1 - Hypertension secondary to other renal disorders (2) CKD (chronic kidney disease) stage 4, GFR 15-29 ml/min: Code(s): N18.4 - Chronic kidney disease, stage 4 (severe) Category: Medical (3) Polycystic kidney disease: Code(s): Q61.3 - Polycystic kidney, unspecified Category: Medical Plan Roly has CKD stage 4 from adult polycystic kidney disease. He has strong family history of PKD. His sister had a renal transplant. He is currently on angiotensin receptor margarita, carvedilol and nifedipine. His blood pressure is not at goal. His Nifedipine has been increased to 90 mg daily which may need to be increased more. I shall consider starting Farxiga 5 mg after reviewing his labs. He maintains an on low-sodium diet. Has never taken tolvaptan. He will need a MRI of the kidneys to assess the volume of kidneys. He will need 24 hour urine collection for GFR estimation soon. I did not make any other medication changes today. He avoids nonsteroidal anti-inflammatory is an maintain good hydration. Answered all questions. Follow-up given Orders: Orders Electrolytes 3 Months N18.4 - Chronic kidney disease, stage 4 (severe), Q61.3 - Polycystic kidney, unspecified Calcium 3 Months N18.4 - Chronic kidney disease, stage 4 (severe), Q61.3 - Polycystic kidney, unspecified Creatinine 3 Months N18.4 - Chronic kidney disease, stage 4 (severe), Q61.3 - Polycystic kidney, unspecified Parathyroid Hormone Intact 3 Months N18.4 - Chronic kidney disease, stage 4 (severe), Q61.3 - Polycystic kidney, unspecified Electrolytes Today I15.1 - Hypertension secondary to other renal disorders, N18.4 - Chronic kidney disease, stage 4 (severe), Q61.3 - Polycystic kidney, unspecified Creatinine Today I15.1 - Hypertension secondary to other renal disorders, N18.4 - Chronic kidney disease, stage 4 (severe), Q61.3 - Polycystic kidney, unspecified Blood Urea Nitrogen 3 Months N18.4 - Chronic kidney disease, stage 4 (severe), Q61.3 - Polycystic kidney, unspecified Vitamin D 25-OH Total 3 Months N18.4 - Chronic kidney disease, stage 4 (severe), Q61.3 - Polycystic kidney, unspecified Blood Urea Nitrogen Today I15.1 - Hypertension secondary to other renal disorders, N18.4 - Chronic kidney disease, stage 4 (severe), Q61.3 - Polycystic kidney, unspecified Coding Level of Care Code Est Pt Level 4 (74709) Diagnoses Hypertension secondary to other renal disorders I15.1 Hypertension type: secondary to other renal disorders CKD (chronic kidney disease) stage 4, GFR 15-29 ml/min N18.4 Polycystic kidney disease Q61.3
[2025-03-29 09:54] VITALS: BP 154/110; PULSE 52; O2SAT 97; BMI 27.9
--- OUTSIDE RECORDS SUMMARY | 2025-03-29 10:12 | XMS_ITS | Patient Health Record ---
Author Organization [facility] Address [address] [place] [address] Care Team Providers Care Outreach Librarian Name Role Phone Benito Feng Unavailable [phone] Allergies Allergen (clinical drug ingredient) Drug/Non Drug Allergy documented on EMR Reaction Allergy Type Onset Date Status angiotensin-converting enzyme inhibitor (FN) LINDA Inhibitors Unknown Drug Allergy Acti ve Reason For Referral No Information Medications Medication SIG (Take, Route, Frequency, Duration) Notes Start Date End Date Status Ciclopirox 0.77 % 1 application to aff ected area Externally Twice a day to effected nails; Duration: 30 days 08/19/2022 Active amLODIPine Besylate 10 MG 1 tablet Orall y Once a day; Duration: 30 day(s) Active Olmesartan Medoxomil 40 MG 1 tablet Oral ly Once a day; Duration: 30 day(s) Active Carvedilol 25 MG 1 tablet with food O rally Twice a day; Duration: 30 day(s) Active Social History Tobacco Use: [...] Problem Acquired hammer toe of right foot (6881072911181 105) Other hammer toe(s) (acquired), right foot (M20.41) Active confirmed Problem Tinea unguium (298760293) Tinea unguium (B35.1) Active confirmed Problem Acquired hammer toe of left foot (3881291984292 103) Other hammer toe(s) (acquired), left foot (M20.42) Active confirmed Problem Plantar wart (65392017) Plantar wart (B07.0) Active confirmed Plan Of Treatment Pending Test Test Name Order Date [id number] NAIL, 6 OR MORE 08/19/2022 [id number] Destruction, 1-14 08/19/2022 Insurance Providers Payer Name Payer Address Payer Phone Subscriber Number Group Number Insured Name Patient Relationship to Insured Coverage Start Date Coverage End Date A[employer] [address] [place] [address] [id number] Princess Cruz Spouse - patient is the spouse of the insured Medical (General) History Medical History History ICD Code covid-19 Kidney disease Chicken pox Surgical History Surgery Date(Month/Year)
--- OUTSIDE RECORDS SUMMARY | 2025-03-29 10:12 | XMS_ITS | Clinical Summary ---
Author Organization [facility] Address [address] [place] [address] Phone Care Team Providers Care Utilization Engineer Name Role Phone Alfredo Thomas MD Primary [...] 08/21/2014 Overview (11/23/2022): On clinical trial at [facility], Dr Jacobo Overweight 11/05/2011 Hypertensive disorder [...] Date Last Done Comments Pneumococcal Vaccine: 50+ Ye ars (1 of 2 - PCV) 1984 Colorectal Cancer Screening: Annual FOBT 2014 Colorectal Cancer Screening: Colonoscopy 2014 Colorectal Cancer Screening: Sigmoidoscopy 2014 Diabetes: Hemoglobin A1C 09/16/2022 Diabetes: Ophthalmology Exam 09/16/2022 Diabetes: Pedal Pulse Checked 09/16/2022 Diabetes: Sensory Foot Exam 09/16/2022 Diabetes: Visual Foot Exam 09/16/2022 Influenza Vaccine (#1) 2025 06/12/2020 Hepatitis B Vaccine Aged Out No longe r eligible based on patient's age to complete this topic Insurance Aetna Commercial Aetna Commercial Care Teams Utilization Engineer Relationship Specialty Start Date End Date Alfredo Thomas MD PCP - General Internal Medicine 07/13/23
--- OUTSIDE RECORDS SUMMARY | 2025-03-29 10:12 | XMS_ITS | Clinical Summary ---
Author Organization [facility] Address [address] [place] [address] Care Team Providers Care Surveillance Sensor Officer Name Role Phone Unavailable Primary Care [...]
--- OUTSIDE RECORDS SUMMARY | 2025-03-29 10:12 | XMS_ITS | Encounter Summary ---
Author Organization [facility] Address [address] [place] [address] Care Team Providers Care Channel Sales Manager Name Role Phone Geo Valero MD Primary Care Provider Unavail able Barbara Arias MD Primary Care Provider Barbara huynh Encounter Details Date Type Department Care Team Description 02/05/2017 Business Affairs Manager Report Medical Records [address] [place] [id number] Abstract, Provider Social History Tobacco Use Types [...] on filedocumented in this encounter Care Teams Channel Sales Manager Relationship Specialty Start Date End Date Geo Valero MD PCP - General 10/01/09 06/08/22 Barbara Arias MD PCP - General Family Practice 06/09/22 documented as of this encounter
== END 2025-03-29 10:37 | disposition home or self-care (01) ==
LOC: HO.HKAS 09:49
PROVIDERS: PCP Internal Medicine; Visit Provider Internal Medicine Nephrology
DX: I15.1 Hypertension secondary to other renal disorders (principal); N18.4 Chronic kidney disease, stage 4 (severe); Q61.3 Polycystic kidney, unspecified
CPT/HCPCS: 99214

== ENCOUNTER 2025-03-29 09:48 | Outpatient (REF) | payer OTHER, SELFPAY ==
[2025-03-29 17:50] LABS: Anion Gap 12 (12-20); Blood Urea Nitrogen 29 mg/dL (9-16); Carbon Dioxide 26 mmol/L (22-29); Chloride 110 mmol/L (96-108); Estimated Glomerular Filt Rate 24; Potassium 4.8 mmol/L (3.3-5.1); Sodium 143 mmol/L (135-145)
== END 2025-03-29 09:49 | disposition home or self-care (01) ==
LOC: HO.HKASLDS 09:48
PROVIDERS: PCP Internal Medicine; Visit Provider Internal Medicine Nephrology
DX: I12.9 Hypertensive chronic kidney disease with stage 1 through stage 4 chronic kidney disease, or unspecified chronic kidney disease (principal); N18.4 Chronic kidney disease, stage 4 (severe); Q61.2 Polycystic kidney, adult type; Z79.899 Other long term (current) drug therapy; Z82.71 Family history of polycystic kidney
CPT/HCPCS: 36415; 80051; 82565; 84520

== ENCOUNTER 2025-05-08 15:06 | Outpatient (AMB) | payer OTHER, SELFPAY ==
[2025-05-08 15:08] VITALS: BP 146/94; PULSE 78; TEMP 36.3; O2SAT 96; BMI 29.2
--- NOTE | 2025-05-08 15:08 | MHC.PC.OV ---
Vital Signs 05/08/25 15:08 Height 5 ft 10 in Weight 203 lb 4 oz BMI 29.2 BP 146/94 H Blood Pressure Location Rt brachial Position Sitting Pulse 78 Pulse Source Pulse Oximeter Temp 97.3 F Temp Source Temporal Artery Scan Pulse Oximetry (%) 96 Oxygen Delivery Method Room Air Intake Visit Reasons: 3 month f/u Allergies LINDA Inhibitors Allergy (Verified 05/13/25 14:31) Swelling Medication List - Last Reconciled 05/13/25 by Dinh Martinez MD apixaban (Eliquis) 5 mg PO BID 90 days carvedilol 25 mg PO BID 90 days cholecalciferol (vitamin D3) 25 mcg PO DAILY dapagliflozin propanediol (Farxiga) 5 mg PO DAILY nifedipine ER 90 mg PO DAILY olmesartan 40 mg PO DAILY Tobacco use date assessed: 05/08/25 Dental Screening Dental Screen Date: 05/08/25 Did you have a dental visit in the last 12 months?: Yes Did you have a dental problem in the last 6 months where you did not have access to dental care?: No Was dental information given to patient?: Patient has dentist HPI 3 month f/u HPI Details Patient comes in today for his follow-up visit States that he feels okay any headaches or dizziness Denies chest pains, no shortness of breath No nausea/vomiting, no abdominal pain No change in bowel habits noted He was not able to get his follow-up labs done prior to his appointment today - states that he done as soon as possible sometime in the next few days [facility] Medical History Bilateral inguinal hernia without obstruction or gangrene Overweight (BMI 25.0-29.9) Vitamin D deficiency Essential hypertension Polycystic kidney disease CKD (chronic kidney disease) stage 4, GFR 15-29 ml/min Paroxysmal atrial fibrillation Surgical History No pertinent past surgical history Family History Other FH: mental illness Kidney disease Social History Housing: House Alcohol intake: current Comment: [facility] Patient Tobacco Use Status: Never used Tobacco e-Cigarette/Vaping Use: Never Used service: Yes Current occupational status: employed Current occupational exposures/hazards: No Cognitive needs: No Hearing needs: No Vision needs: Yes Questionnaire PHQ-9 Over the last 2 weeks, how often have you been bothered by any of the following problems? 1. Little interest or pleasure in doing things: not at all 2. Feeling down, depressed, or hopeless: not at all 3. Trouble falling or staying asleep, or sleeping too much: not at all 4. Feeling tired or having little energy: several days 5. Poor appetite or overeating: not at all 6. Feeling bad about yourself - or that you are a failure or have let yourself or your family down: not at all 7. Trouble concentrating on things, such as reading the newspaper or watching television: not at all 8. Moving or speaking so slowly that other people could have noticed. Or the opposite - being so fidgety or restless that you have been moving around a lot more than usual: not at all 9. Thoughts that you would be better off or of hurting yourself in some way: not at all Total score: 1 Depression Screening Interpretation: Negative Depression Screening Done: Yes 37668 - PHQ-9 Billing: Yes Source: Developed by Drs. Gustavo Peterson, Noemy Garcia, Jeffrey Starr and colleagues, with an educational sulema from [employer]. Thrive Questionnaire Date Thrive assessed: 10/24/24 I am a: Patient What is your living situation today?: I have a steady place to live Within the past 12 months, did the food you bought not last and you didn't have the money to get more?: Never true Within the past 12 months, did you worry whether your food would run out before you got money to buy more?: Never true Do you have trouble paying for medicines?: No Do you have trouble getting transportation to medical appointments?: No Do you have trouble paying your heating and electricity bill?: No Do you have trouble taking care of your child, family member or friend?: No Do you have trouble with day-to-day activities such as bathing, preparing meals, shopping, managing finances, etc.?: No Are you currently unemployed and looking for a job?: No Are you interested in more education?: Yes Please select the resources that you would like help with: None Currently or been in a relationship where the following occur: No concerns reported THRIVE Score: 0 AUDIT C Alcohol Use Questionnaire (AUDIT-C) 1. How often do you have a drink containing alcohol?: Monthly or less 2. How many drinks containing alcohol do you have on a typical day when you are drinking?: 1 or 2 3. How often do you have six or more drinks on one occasion?: Never Total Score: 1 Score Reviewed/Action Taken: Yes AYLEEN-7 AMB Questionnaire AYLEEN-7 Date AYLEEN - 7 assessed: 01/22/25 Feeling nervous, anxious, or on edge: 0 = Not at all Not being able to stop or control worryin = Not at all Worrying too much about different things: 0 = Not at all Trouble relaxin = Several days Being so restless that it is hard to sit still: 0 = Not at all Becoming easily annoyed or irritable: 1 = Several days Feeling afraid as if something awful might happen: 0 = Not at all Total AYLEEN-7 score (0-4 normal; 5-9 mild; 10-14 moderate; 15-21 severe): 2 Source: Developed by Drs. Gustavo Peterson, Noemy Garcia, Jeffrey Starr and colleagues, with an educational sulema from [employer]. Review of Systems Const Denies chills, Denies fatigue, Denies fever(s) and Denies headache(s) ENT Denies dysphagia, Denies dizziness, Denies otalgia, Denies headache(s), Denies neck pain, Denies odynophagia and Denies sore throat Card Denies chest pain, Denies palpitations and Denies dyspnea Resp Denies chest congestion, Denies cough and Denies dyspnea GI Details: (+) recurrent discomfort and pressure-like sensation over the left suprapubic area - see HPI for details Denies abdominal pain, Denies constipation, Denies dysphagia, Denies heartburn, Denies diarrhea, Denies nausea, Denies odynophagia and Denies vomiting Denies difficulty urinating, Denies dysuria, Denies nocturia and Denies urinary frequency Musc Denies back pain and Denies neck pain Skin/Breast Details: (+) palpable nodule over the left breast Denies rash Neuro Denies dizziness and Denies headache(s) Endo Denies fatigue and Denies palpitations Physical exam (Primary Care) Vital Signs: Last Vital Signs Temp 97.3 F 05/08/25 15:08 Pulse 78 05/08/25 15:08 BP 146/94 H 05/08/25 15:08 Pulse Ox 96 05/08/25 15:08 Oxygen Delivery Method Room Air 05/08/25 15:08 BMI result Body Mass Index 29.2 Tobacco/Smoking Status: Tobacco use Status Tobacco use date assessed 05/08/25 05/08/25 15:11 Patient Tobacco Use Status Never used Tobacco 05/08/25 15:11 e-Cigarette/Vaping Use Never Used 05/08/25 15:11 PHQ-9: PHQ-9 Score PHQ-9: Total score 1 05/08/25 15:55 Depression Screening Interpretation: Negative Thrive Assessment: Date of Thrive Assessment Date Thrive assessed 10/24/24 05/08/25 15:11 Currently or been in a relationship where the following occur: No concerns reported Const General: no acute distress and alert HENMT Ears: TM's normal bilaterally and EAC's normal Throat: Yes posterior oropharynx normal and Yes tonsils normal (no TP congestion) Neck Neck: Yes supple and No lymphadenopathy Thyroid: Thyroid normal Chest Other: (+) palpable, non-tender nodule over the left breast Resp Auscultation: clear to auscultation bilaterally, no rales and no wheezes Cardio Rate: regular rate Rhythm: regular rhythm Heart sounds: no murmurs GI Palpation (GI): Soft to palpation, nontender and Palpable mass present ((+) small reducible palpable mass over the left suprapubic area) Auscultation: normal bowel sounds General: Yes no CVA tenderness Back/Spine/Pelvis Back: no CVA tenderness Thoracic/Lumbar Spine: No lumbar spinal tenderness Skin Rashes: no rashes Extrem General: Yes no clubbing, cyanosis or edema Coding Level of Care Code Est Pt Level 4 (62587) Diagnoses Paroxysmal atrial fibrillation I48.0 Essential hypertension I10 CKD (chronic kidney disease) stage 4, GFR 15-29 ml/min N18.4 Abdominal wall mass of suprapubic region R19.09 Vitamin D deficiency E55.9 Overweight (BMI 25.0-29.9) E66.3 Additional Codes PHQ-9 - 64737 - PHQ-9 Billing: Yes ([id number]) Assessment & Plan Assessment & Plan (1) Paroxysmal atrial fibrillation: Code(s): I48.0 - Paroxysmal atrial fibrillation Category: Medical Plan: Patient currently remains in sinus rhythm Continue Eliquis 5 mg BID thromboembolism prophylaxis Continue Carvedilol 25 mg BID Follow up with [facility] Cardiology as scheduled (2) Essential hypertension: Code(s): I10 - Essential (primary) hypertension Category: Medical Plan: Reinforced low sodium diet - goal is systolic BP of 120 to 130 mm or less Continue Carvedilol 25 mg BID, Nifedipine ER 90 mg QD and Olmesartan 40 mg QD Patient is reminded to continue monitoring his blood pressure regularly (3) CKD (chronic kidney disease) stage 4, GFR 15-29 ml/min: Code(s): N18.4 - Chronic kidney disease, stage 4 (severe) Category: Medical Plan: Will recheck his serum creatinine and GFR for follow-up and will continue to monitor his renal function closely/regularly - patient is reminded to get his previously ordered labs done VIPUL; will add some additional labs, including urine cytology, for further evaluation of his microscopic hematuria Continue Farxiga 5 mg QD Follow-up with nephrology (Dr. Gonzáles) as scheduled (4) Abdominal wall mass of suprapubic region: Code(s): R19.09 - Other intra-abdominal and pelvic swelling, mass and lump Category: Medical Plan: He was referred to surgery and is now scheduled for bilateral inguinal hernia repair surgery on 08/30/2025 at [facility] (5) Vitamin D deficiency: Code(s): E55.9 - Vitamin D deficiency, unspecified Category: Medical Plan: Continue Vitamin D3 1000 units QD (6) Overweight (BMI 25.0-29.9): Code(s): E66.3 - Overweight Category: Medical Plan: Reinforce diet/exercise as tolerated/lose weight Plan Follow-up in 3 months Orders: Orders Vitamin D 25-OH Total 05/10/25 E55.9 - Vitamin D deficiency, unspecified Prostate Specific Antigen 05/10/25 N40.0 - Benign prostatic hyperplasia without lower urinary tract symptoms Urine Cytology 05/10/25 R31.1 - Benign essential microscopic hematuria
--- OUTSIDE RECORDS SUMMARY | 2025-05-08 16:02 | XMS_ITS | Patient Health Record ---
Author Organization [facility] Address [address] [place] [address] Care Team Providers Care Statement Services Representative Name Role Phone Benito Feng Unavailable [phone] Allergies Allergen (clinical drug ingredient) Drug/Non Drug [...] Problem Acquired hammer toe of right foot (3201141702982 105) Other hammer toe(s) (acquired), right foot (M20.41) Active confirmed Problem Tinea unguium (146262601) Tinea unguium (B35.1) Active confirmed Problem Acquired hammer toe of left foot (9913549149160 103) Other hammer toe(s) (acquired), left foot (M20.42) Active confirmed Problem Plantar wart (53560483) Plantar wart (B07.0) Active confirmed Plan Of Treatment Pending Test Test Name Order Date [id number] NAIL, 6 OR MORE 08/19/2022 [id number] Destruction, 1-14 08/19/2022 Insurance Providers Payer Name Payer Address Payer Phone Subscriber Number Group Number Insured Name Patient Relationship to Insured Coverage Start Date Coverage End Date Aetna [address] [place] [address] [id number] Princess Cruz Spouse - patient is the spouse of the insured Medical (General) History Medical History History ICD Code covid-19 Kidney disease Chicken pox Surgical History Surgery Date(Month/Year)
--- OUTSIDE RECORDS SUMMARY | 2025-05-08 16:02 | XMS_ITS | Clinical Summary ---
Author Organization [facility] Address [address] [place] [address] Phone Care Team Providers Care Preassembler And Inspector Name Role Phone Alfredo Thomas MD Primary [...] 08/21/2014 Overview (11/23/2022): On clinical trial at [facility], Dr Jacobo Overweight 11/05/2011 Hypertensive disorder [...] Insurance Aetna Commercial Aetna Commercial Care Teams Preassembler And Inspector Relationship Specialty Start Date End Date Alfredo Thomas MD PCP - General Internal Medicine 07/13/23
--- OUTSIDE RECORDS SUMMARY | 2025-05-08 16:02 | XMS_ITS | Clinical Summary ---
Author Organization [facility] Address [address] [place] [address] Care Team Providers Care Human Resources Operations Manager Name Role Phone Barbara Arias MD Primary [...] disease 08/21/2014 Overview: On clinical trial at [facility], Dr Jacobo Overweight 11/05/2011 Hypertension 10/01/2009 [...] 72 12/24/2020 10:03 AM EDT Temperature 36.9 C (98.4 F) 07/15/2020 3:39 PM EST Respiratory Rate 10 12/24/2020 10:03 AM EDT [...] Vaccine (2022-2 4 season) 2024 11/28/2020, 11/07/2020 BMI CHECK/ADVISE 09/13/2024 07/12/2020, , 06/12/2020 (Completed), Additional history exists INFLUENZA (#1) 2025 06/12/2020 (Comp leted), 06/12/2020, 09/20/2015 (Refused) CHOLESTEROL SCREENING 06/12/2025 06/12/2020 , 02/23/2019, 02/21/2018, Additional history exists DTAP/TDAP/TD (2 - Td or Tdap) 09/20/2025 09/20/2015 COLON CANCER SCREENING 10/25/2025 10/25/2015 PNEUMOCOCCAL VACCINE FOR HIG H RISK PATIENTS (#1) 2030 HEPATITIS C SCREENING Completed 08/22/2014 Care Teams Human Resources Operations Manager Relationship Specialty Start Date End Date Barbara Arias MD PCP - General Family Practice 06/09/22
--- OUTSIDE RECORDS SUMMARY | 2025-05-08 16:02 | XMS_ITS | Encounter Summary ---
Author Organization [facility] Address [address] [place] [address] Care Team Providers Care Supply Room Clerk Name Role Phone Geo Valero MD Primary Care Provider Unavail able Barbara Arias MD Primary Care Provider Barbara huynh Reason for Visit * Reason Onset Date Comments Faxed Refill 12/04/2014 Encounter Details Date Type Department Care Team Description 12/04/2014 Refill Nephrology - [address] [address] Felix Kirkland MD [address] [place] [address] Faxed Refill Social History Tobacco Use Types Packs/Day Years Used Date Smoking Tobacco: Never Alcohol Use Standard Drinks/Week Comments No 0 (1 standard drink = 0.6 oz pur e alcohol) Sex Assigned at Date Recorded Not on file documented as of this encounter Plan of Treatment Not on file documented as of this encounter Visit Diagnoses Not on filedocumented in this encounter Care Teams Supply Room Clerk Relationship Specialty Start Date End Date Geo Valero MD PCP - General 10/01/09 06/08/22 Barbara Arias MD PCP - General Family Practice 06/09/22 documented as of this encounter
--- OUTSIDE RECORDS SUMMARY | 2025-05-08 16:02 | XMS_ITS | Encounter Summary ---
Author Organization [facility] Address [address] [place] [address] Care Team Providers Care Wind Technician Name Role Phone Geo Valero MD Primary Care Provider Unavail able Barbara Arias MD Primary Care Provider Barbara huynh Encounter Details Date Type Department Care Team Description 10/01/2014 Refill Nephrology - [address] [address] Felix Kirkland MD [address] [place] [id number] Social History Tobacco Use Types Packs/Day Years Used Date Smoking Tobacco: Never Alcohol Use Standard Drinks/Week Comments No 0 (1 standard drink = 0.6 oz pur e alcohol) Sex Assigned at Date Recorded Not on file documented as of this encounter Plan of Treatment Not on file documented as of this encounter Visit Diagnoses Not on filedocumented in this encounter Care Teams Wind Technician Relationship Specialty Start Date End Date Geo Valero MD PCP - General 10/01/09 06/08/22 Barbara Arias MD PCP - General Family Practice 06/09/22 documented as of this encounter
--- OUTSIDE RECORDS SUMMARY | 2025-05-08 16:02 | XMS_ITS | Clinical Summary ---
Author Organization [facility] Address [address] [place] [address] Care Team Providers Care Watch Inspector Final Movement Name Role Phone Unavailable Primary Care Provider [...] - 2023-2 5 season) 2024 11/28/2020, 11/07/2020 Depression Screening 09/13/2024 Influenza Vaccine (#1) 2025 06/12/2020 DTaP,Tdap,and Td [...]
== END 2025-05-08 15:57 | disposition home or self-care (01) ==
LOC: HO.HMCH 15:06
PROVIDERS: PCP Internal Medicine; Visit Provider Internal Medicine
DX: I48.0 Paroxysmal atrial fibrillation (principal); I12.9 Hypertensive chronic kidney disease with stage 1 through stage 4 chronic kidney disease, or unspecified chronic kidney disease; N18.4 Chronic kidney disease, stage 4 (severe); R19.09 Other intra-abdominal and pelvic swelling, mass and lump; E55.9 Vitamin D deficiency, unspecified; E66.3 Overweight

== ENCOUNTER → 2025-05-08 15:06 | Outpatient (BNVA) | payer OTHER, SELFPAY | PROVIDERS: PCP Internal Medicine; Visit Provider Internal Medicine | DX: I48.0 Paroxysmal atrial fibrillation (principal); I12.9 Hypertensive chronic kidney disease with stage 1 through stage 4 chronic kidney disease, or unspecified chronic kidney disease; N18.4 Chronic kidney disease, stage 4 (severe); R19.09 Other intra-abdominal and pelvic swelling, mass and lump; E55.9 Vitamin D deficiency, unspecified; E66.3 Overweight; N40.0 Benign prostatic hyperplasia without lower urinary tract symptoms; R31.1 Benign essential microscopic hematuria; Z68.29 Body mass index [BMI] 29.0-29.9, adult | CPT/HCPCS: 96127 ==

== ENCOUNTER 2025-05-10 08:00 | Outpatient (REF) | payer OTHER, SELFPAY ==
--- OUTSIDE RECORDS SUMMARY | 2025-05-10 08:14 | XMS_ITS | Clinical Summary ---
Author Organization [facility] Address [address] [place] [address] Care Team Providers Care Director Check Name Role Phone Unavailable Primary Care Provider [...]
--- OUTSIDE RECORDS SUMMARY | 2025-05-10 08:14 | XMS_ITS | Encounter Summary ---
Author Organization [facility] Address [address] [place] [address] Care Team Providers Care Bulk Sealer Operator Name Role Phone Geo Valero MD Primary Care Provider Unavail able Barbara Arias MD Primary Care Provider Barbara huynh Encounter Details Date Type Department Care Team Description 10/01/2014 Refill Nephrology - [address] [address] Felix Kirkland MD [address] [place] [id number] Social History Tobacco Use Types Packs/Day Years Used Date Smoking Tobacco: Never Alcohol Use Standard Drinks/Week Comments No 0 (1 standard drink = 0.6 oz pur e alcohol) Sex Assigned at Date Recorded Not on file documented as of this encounter Plan of Treatment Not on file documented as of this encounter Visit Diagnoses Not on filedocumented in this encounter Care Teams Bulk Sealer Operator Relationship Specialty Start Date End Date Geo Valero MD PCP - General 10/01/09 06/08/22 Barbara Arias MD PCP - General Family Practice 06/09/22 documented as of this encounter
--- OUTSIDE RECORDS SUMMARY | 2025-05-10 08:14 | XMS_ITS | Patient Health Record ---
Author Organization [facility] Address [address] [place] [address] Care Team Providers Care Roll Examiner Name Role Phone Benito Feng Unavailable [phone] Allergies Allergen (clinical drug ingredient) Drug/Non Drug [...] Problem Acquired hammer toe of right foot (1641479377793 105) Other hammer toe(s) (acquired), right foot (M20.41) Active confirmed Problem Tinea unguium (922739921) Tinea unguium (B35.1) Active confirmed Problem Acquired hammer toe of left foot (5956591250872 103) Other hammer toe(s) (acquired), left foot (M20.42) Active confirmed Problem Plantar wart (10125166) Plantar wart (B07.0) Active confirmed Plan Of Treatment Pending Test Test Name Order Date [id number] NAIL, 6 OR MORE 08/19/2022 [id number] Destruction, 1-14 08/19/2022 Insurance Providers Payer Name Payer Address Payer Phone Subscriber Number Group Number Insured Name Patient Relationship to Insured Coverage Start Date Coverage End Date Aetna [address] [place] [phone] [id number] Princess Cruz Spouse - patient is the spouse of the insured Medical (General) History Medical History History ICD Code covid-19 Kidney disease Chicken pox Surgical History Surgery Date(Month/Year)
--- OUTSIDE RECORDS SUMMARY | 2025-05-10 08:14 | XMS_ITS | Clinical Summary ---
Author Organization [facility] Address [address] [place] [address] Care Team Providers Care Experience Planning Strategist Name Role Phone Barbara Arias MD Primary [...] disease 08/21/2014 Overview: On clinical trial at [facility], Dr Jacobo Overweight 11/05/2011 Hypertension 10/01/2009 [...] HEPATITIS C SCREENING Completed 08/22/2014 Care Teams Experience Planning Strategist Relationship Specialty Start Date End Date Barbara Arias MD PCP - General Family Practice 06/09/22
--- OUTSIDE RECORDS SUMMARY | 2025-05-10 08:14 | XMS_ITS | Encounter Summary ---
Author Organization [facility] Address [address] [place] [address] Care Team Providers Care Telesales Professional Name Role Phone Geo Valero MD Primary Care Provider Unavail able Barbara Arias MD Primary Care Provider Barbara huynh Encounter Details Date Type Department Care Team Description 02/05/2017 Spray Mixer Report Medical Records [address] [place] [id number] Abstract, Provider Social History Tobacco Use Types [...] on filedocumented in this encounter Care Teams Telesales Professional Relationship Specialty Start Date End Date Geo Valero MD PCP - General 10/01/09 06/08/22 Barbara Arias MD PCP - General Family Practice 06/09/22 documented as of this encounter
--- OUTSIDE RECORDS SUMMARY | 2025-05-10 08:14 | XMS_ITS | Clinical Summary ---
Author Organization [facility] Address [address] [place] [address] Phone Care Team Providers Care Outreach Specialist Name Role Phone Alfredo Thomas MD Primary [...] 08/21/2014 Overview (11/23/2022): On clinical trial at [facility], Dr Jacobo Overweight 11/05/2011 Hypertensive [...] Insurance Aetna Commercial Aetna Commercial Care Teams Outreach Specialist Relationship Specialty Start Date End Date Alfredo Thomas MD PCP - General Internal Medicine 07/13/23
[2025-05-10 08:26] LABS: MANUAL DIFF FLAG NO
[2025-05-10 09:03] LABS: Hematocrit 37.0 % (42.0-52.0); Hemoglobin 12.1 g/dl (14.0-18.0); Imm Gran Abs Auto 0.01 X10*3/uL (0.00-0.03); Imm Gran Pct Auto 0.2 % (0.0-0.4); Lymphocytes Absolute Auto 2.0 X10*3/uL (1.2-4.9); Mean Corpuscular HGB Conc 32.7 g/dl (31.0-36.0); Mean Corpuscular Hemoglobin 30.0 pg (27.0-33.0); Mean Corpuscular Volume 91.8 fL (80.0-98.0); NRBC Abs Auto 0.000 X10*3/uL (0.0-0.012); NRBC Pct Auto 0.0 /100WBC (0.0-0.2); Platelet Count 223 X10*3/uL (160-400); Red Blood Count 4.03 X10*6/uL (4.60-5.80); White Blood Count 5.4 X10*3/uL (4.8-10.8)
[2025-05-10 09:27] LABS: Appearance Urine Clear; Glucose Urine UA Negative (Negative); PH 6.5 (5.0-9.0); Specific Gravity - Urine 1.010 (1.005-1.025); UMIC TRIGGER UACC YES
[2025-05-10 09:31] LABS: UACC Culture Trigger YES
[2025-05-10 09:42] LABS: Alanine Aminotransferase 28 U/L (0-40); Albumin Level 4.4 g/dL (3.5-5.0); Alkaline Phosphatase 98 U/L (39-117); Anion Gap 12 (12-20); Aspartate Amino Transferase 41 U/L (5-37); Blood Urea Nitrogen 30 mg/dL (9-16); Calcium 9.3 mg/dL (8.4-10.2); Carbon Dioxide 28 mmol/L (22-29); Chloride 108 mmol/L (96-108); Cholesterol 188 mg/dL (<200); Estimated Glomerular Filt Rate 25; HDL Cholesterol 38 mg/dL (>40); Potassium 4.8 mmol/L (3.3-5.1); Sodium 143 mmol/L (135-145); Total Protein 8.4 g/dL (6.5-8.0); Triglycerides 91 mg/dL (<150)
[2025-05-10 09:47] LABS: Prostate Specific Antigen 0.70 ng/mL (<0.05-4.0)
== END 2025-05-10 08:01 | disposition home or self-care (01) ==
LOC: HO.LAB 08:00
PROVIDERS: PCP Internal Medicine; Visit Provider Internal Medicine
DX: E78.00 Pure hypercholesterolemia, unspecified (principal); D64.9 Anemia, unspecified; E55.9 Vitamin D deficiency, unspecified; N40.0 Benign prostatic hyperplasia without lower urinary tract symptoms; R31.1 Benign essential microscopic hematuria; R30.0 Dysuria; Z12.5 Encounter for screening for malignant neoplasm of prostate
CPT/HCPCS: 36415; 80053; 80061; 81001; 82306; 84153; 85025; 87086; 88112

== ENCOUNTER 2025-05-16 08:39 | Outpatient (AMB) | payer OTHER, SELFPAY ==
[2025-05-16 08:48] VITALS: BP 138/84; PULSE 60; TEMP 36.7; O2SAT 97; BMI 28.7
--- NOTE | 2025-05-16 08:48 | AM.OFFWIN_ITS ---
Intake Vital Signs 05/16/25 08:48 Height 5 ft 10 in Weight 200 lb BMI 28.7 BP 138/84 Blood Pressure Location Lt brachial Position Sitting Pulse 60 Pulse Source Pulse Oximeter Temp 98.1 F Temp Source Oral Pulse Oximetry (%) 97 Oxygen Delivery Method Room Air Intake Visit Reasons: ep bug bite on chest Intake Note: pt presents with a tender and itchylump to upper abdomen. reports enlarged kidney and an untreated cyst above the lump. Patient Tobacco Use Status: Never used Tobacco Allergies LINDA Inhibitors Allergy (Verified 05/16/25 08:49) Swelling Medication List - Last Reconciled 05/16/25 by Igor Santa MD apixaban (Eliquis) 5 mg PO BID 90 days carvedilol 25 mg PO BID 90 days cholecalciferol (vitamin D3) 25 mcg PO DAILY dapagliflozin propanediol (Farxiga) 5 mg PO DAILY nifedipine ER 90 mg PO DAILY olmesartan 40 mg PO DAILY Do you need a note to return to daycare/school/sports/work: No HPI ep bug bite on chest HPI Details Interval History The patient is a 60-year-old male presenting with a lump in the epigastric region. Ventral Hernia: - New onset of lump noticed approximatel y one week ago. - No prior symptoms or similar occurrenc es before the recent observation. - Lump described to have become slightly tender and itchy. - No reported changes in eating habits, nausea, or vomiting. Polycystic Kidney Disease: - Patient has a history of enlarged kidn ey and liver due to polycystic kidney disease. - No recent imaging studies; condition s elf-reported by the patient. Fatty Liver: - Self-reported history of an enlarged l iver, likely due to fatty infiltration. 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 Diagnostic Results: - Recent laboratory results indicate a c reatinine level of 2.67 and a GFR of 25. Problem List - Ventral Hernia - Polycystic Kidney Disease - Fatty Liver Patient Instructions - Undergo an ultrasound to evaluate the lump in the epigastric area. - Avoid lifting heavy objects to prevent aggravation of the ventral hernia. 09:51, ultrasound department do not do s tat ultrasound for abdominal wall lump or epigastric lumps I have changed the order to CT scan on urgent basis. Also sent a message to patient's primary care so he can be seen as soon as possible for further management I also tried to notify patient, called him but he did not fruit picker the telephone, message left on his phone. Review of Systems - General: No fever no chills - Neurological: No headaches no dizziness - Ear nose throat: No sore throat no hearing difficulty no ear pain - Cardiovascular: No syncope, no chest pain, no palpitations - Gastrointestinal: No nausea vomiting or diarrhea Physical Exam General: No acute distress HEENT: No acute findings Neck: Supple Respiratory system: Able to talk in full sentences, no audible wheeze Gastrointestinal: Mildly sore lump in the epigastric area size 5 in by 3 in along close to sternum, ventral hernia noted as well not related to lump Extremities: No new findings TENTER FEEDER: Alert awake oriented x3 motor intact Skin: Normal turgor [facility] Medical History Bilateral inguinal hernia without obstruction or gangrene Overweight (BMI 25.0-29.9) Vitamin D deficiency Essential hypertension Polycystic kidney disease CKD (chronic kidney disease) stage 4, GFR 15-29 ml/min Paroxysmal atrial fibrillation Surgical History No pertinent past surgical history Family History Other FH: mental illness Kidney disease Social History Housing: House Alcohol intake: current Comment: occ Patient Tobacco Use Status: Never used Tobacco e-Cigarette/Vaping Use: Never Used service: Yes Current occupational status: employed Current occupational exposures/hazards: No Cognitive needs: No Hearing needs: No Vision needs: Yes Physical Exam Vital Signs: Last Vital Signs Temp 98.1 F 05/16/25 08:48 Pulse 60 05/16/25 08:48 BP 138/84 05/16/25 08:48 Pulse Ox 97 05/16/25 08:48 Oxygen Delivery Method Room Air 05/16/25 08:48 BMI result Body Mass Index 28.7 Assessment & Plan Assessment & Plan (1) Epigastric lump: Code(s): R19.06 - Epigastric swelling, mass or lump (2) Abdominal pain: Code(s): R10.9 - Unspecified abdominal pain Qualifiers: Abdominal location: epigastric Qualified Code(s): R10.13 - Epigastric pain (3) Abdominal wall hernia: Comment: over the lower abdomen Code(s): K43.9 - Ventral hernia without obstruction or gangrene Plan Interval History The patient is a 60-year-old male presenting with a lump in the epigastric region. Ventral Hernia: - New onset of lump noticed approximately one week ago. - No prior symptoms or similar occurrences before the recent observation. - Lump described to have become slightly tender and itchy. - No reported changes in eating habits, nausea, or vomiting. Polycystic Kidney Disease: - Patient has a history of enlarged kidney and liver due to polycystic kidney disease. - No recent imaging studies; condition self-reported by the patient. Fatty Liver: - Self-reported history of an enlarged liver, likely due to fatty infiltration. 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 Diagnostic Results: - Recent laboratory results indicate a creatinine level of 2.67 and a GFR of 25. Problem List - Ventral Hernia - Polycystic Kidney Disease - Fatty Liver Patient Instructions - Undergo an ultrasound to evaluate the lump in the epigastric area. - Avoid lifting heavy objects to prevent aggravation of the ventral hernia. 09:51, ultrasound department do not do stat ultrasound for abdominal wall lump or epigastric lumps I have changed the order to CT scan on urgent basis. Also sent a message to patient's primary care so he can be seen as soon as possible for further management I also tried to notify patient, called him but he did not fruit picker the telephone, message left on his phone. Follow-up with primary care Orders: Orders CT abdomen wo IV con Today R10.9 - Unspecified abdominal pain, R19.06 - Epigastric swelling, mass or lump Coding Level of Care Code Est Pt Level 5 (49324) Diagnoses Epigastric lump R19.06 Epigastric pain R10.13 Abdominal location: epigastric Abdominal wall hernia K43.9 Time Spent (min) 45 Comment Reviewing chart/labs/qanp-gp-jhem/follow-up imaging/coordination of care
--- OUTSIDE RECORDS SUMMARY | 2025-05-16 09:07 | XMS_ITS | Patient Health Record ---
Author Organization [facility] Address [address] [place] [address] Care Team Providers Care Hearings Reporter Name Role Phone Benito Feng Unavailable [phone] Allergies Allergen (clinical drug ingredient) Drug/Non Drug [...] Problem Status W/U Status Risk Notes Problem Other hammer toe(s) (acquired), right foot (M20.41) Active confirmed Problem Tinea unguium (306437193) Tinea unguium (B35.1) Active confirmed Problem Acquired hammer toe of left foot (3373798589926 103) Other hammer toe(s) (acquired), left foot (M20.42) Active confirmed Problem Plantar wart (22933333) Plantar wart (B07.0) Active confirmed Plan Of Treatment Pending Test Test Name Order Date [id number] NAIL, 6 OR MORE 08/19/2022 [id number] Destruction, 1-14 08/19/2022 Insurance Providers Payer Name Payer Address Payer Phone Subscriber Number Group Number Insured Name Patient Relationship to Insured Coverage Start Date Coverage End Date Aetna [address] [place] [address] [phone] [id number] Princess Cruz Spouse - patient is the spouse of the insured Medical (General) History Medical History History ICD Code covid-19 Kidney disease Chicken pox Surgical History Surgery Date(Month/Year)
--- OUTSIDE RECORDS SUMMARY | 2025-05-16 09:07 | XMS_ITS | Clinical Summary ---
Author Organization [facility] Address [address] [place] [address] Care Team Providers Care Equal Employment Opportunity Officer Name Role Phone Unavailable Primary Care [...] 2015 Zoster Vaccines (1 of 2) 2015 Depression Screening 09/13/2024 COVID-19 Vaccine (3 - 2024-2 6 season) 2025 11/28/2020, 11/07/2020 Influenza Vaccine (#1) 2025 06/12/2020 [...]
--- OUTSIDE RECORDS SUMMARY | 2025-05-16 09:07 | XMS_ITS | Clinical Summary ---
Author Organization [facility] Address [address] [place] [address] Phone Care Team Providers Care Enterprise Integration Architect Name Role Phone Alfredo Thomas MD Primary [...] 08/21/2014 Overview (11/23/2022): On clinical trial at [facility], Dr Jacobo Overweight 11/05/2011 Hypertensive disorder [...] Insurance Aetna Commercial Aetna Commercial Care Teams Enterprise Integration Architect Relationship Specialty Start Date End Date Alfredo Thomas MD PCP - General Internal Medicine 07/13/23
== END 2025-05-16 09:27 | disposition home or self-care (01) ==
PROVIDERS: PCP Internal Medicine; Visit Provider Internal Medicine
DX: R19.06 Epigastric swelling, mass or lump (principal); R10.13 Epigastric pain; K43.9 Ventral hernia without obstruction or gangrene

== ENCOUNTER 2025-06-05 15:09 | Outpatient (REF) | payer OTHER, SELFPAY ==
--- NOTE | ~2025-06-05 | US_ITS ---
EXAMINATION: US ABDOMEN LIMITED CLINICAL INFORMATION: Palpable mass. COMPARISON: None available. TECHNIQUE: Real-time ultrasound of the abdomen in the region of concern. FINDINGS: Multiple, well-defined, round and ovoid shaped, different sizes anechoic lesions without gross septations or nodular components and or flow on color Doppler interrogation. US/US abdomen limited IMPRESSION: Multiple different sizes simple cysts. Unclear origin organ. Electronically signed by: Peter Melvin MD 06/05/2025 04:00 PM EDT
--- OUTSIDE RECORDS SUMMARY | 2025-06-05 18:09 | XMS_ITS | Clinical Summary ---
Author Organization [facility] Address [address] [place] [address] Phone Care Team Providers Care Customer Service Security Officer Name Role Phone Alfredo Thomas MD Primary [...] 08/21/2014 Overview (11/23/2022): On clinical trial at [facility], Dr Jacobo Overweight 11/05/2011 Hypertensive disorder [...] Insurance Aetna Commercial Aetna Commercial Care Teams Customer Service Security Officer Relationship Specialty Start Date End Date Alfredo Thomas MD PCP - General Internal Medicine 07/13/23
--- OUTSIDE RECORDS SUMMARY | 2025-06-05 18:09 | XMS_ITS | Clinical Summary ---
Author Organization [facility] Address [address] [place] [address] Care Team Providers Care Oven Operator Automatic Name Role Phone Unavailable Primary Care Provider [...]
--- OUTSIDE RECORDS SUMMARY | 2025-06-05 18:09 | XMS_ITS | Patient Health Record ---
Author Organization [facility] Address [address] [place] [address] Care Team Providers Care Public Health Name Role Phone Benito Feng Unavailable [phone] Allergies Allergen (clinical drug ingredient) Drug/Non Drug [...] Problem Acquired hammer toe of right foot (0376105494224 105) Other hammer toe(s) (acquired), right foot (M20.41) Active confirmed Problem Tinea unguium (127741811) Tinea unguium (B35.1) Active confirmed Problem Acquired hammer toe of left foot (7828895775971 103) Other hammer toe(s) (acquired), left foot (M20.42) Active confirmed Problem Plantar wart (29187015) Plantar wart (B07.0) Active confirmed Plan Of Treatment Pending Test Test Name Order Date [id number] NAIL, 6 OR MORE 08/19/2022 [id number] Destruction, 1-14 08/19/2022 Insurance Providers Payer Name Payer Address Payer Phone Subscriber Number Group Number Insured Name Patient Relationship to Insured Coverage Start Date Coverage End Date Aetna [address] [place] [address] [phone] [id number] Princess Cruz Spouse - patient is the spouse of the insured Medical (General) History Medical History History ICD Code covid-19 Kidney disease Chicken pox Surgical History Surgery Date(Month/Year)
== END 2025-06-05 15:10 | disposition home or self-care (01) ==
LOC: HO.US 15:09
PROVIDERS: PCP Internal Medicine; Visit Provider Internal Medicine
DX: R19.06 Epigastric swelling, mass or lump (principal); K43.9 Ventral hernia without obstruction or gangrene; R10.13 Epigastric pain; I10 Essential (primary) hypertension; Z79.899 Other long term (current) drug therapy
CPT/HCPCS: 76705

== ENCOUNTER → 2025-06-05 15:32 | Outpatient (BNV) | payer OTHER, SELFPAY | PROVIDERS: PCP Internal Medicine; Visit Provider Radiology Diagnostic Radiology | DX: R10.9 Unspecified abdominal pain (principal); R19.00 Intra-abdominal and pelvic swelling, mass and lump, unspecified site | CPT/HCPCS: 76705 ==

== ENCOUNTER 2025-06-27 16:11 | Outpatient (AMB) | payer OTHER, SELFPAY ==
--- NOTE | 2025-06-27 16:15 | A.OFFPC_ITS ---
Vital Signs 06/27/25 16:16 Height 5 ft 10 in Weight 204 lb BMI 29.3 BP 128/82 Blood Pressure Location Lt brachial Position Sitting Pulse 59 Pulse Source Pulse Oximeter Pulse Oximetry (%) 98 Oxygen Delivery Method Room Air Intake Visit Reasons: discuss ultrasound results Acrobatic Rigger Required: No Accompanied by: Self / Same As Patient Allergies LINDA Inhibitors Allergy (Verified 06/28/25 16:38) Swelling Medication List - Last Reconciled 06/27/25 by Dinh Martinez MD apixaban (Eliquis) 5 mg PO BID 90 days carvedilol 25 mg PO BID cholecalciferol (vitamin D3) 25 mcg PO DAILY dapagliflozin propanediol (Farxiga) 5 mg PO DAILY nifedipine ER 90 mg PO DAILY olmesartan 40 mg PO DAILY Tobacco use date assessed: 06/27/25 Dental Screening Dental Screen Date: 06/27/25 HPI discuss ultrasound results HPI Details Patient comes in today mainly to go over in detail his recent ultrasound report He initially presented to the walk-in clinic last month for the perceived lump over his epigastric area and was sent for imaging studies for further evaluation CT of the abdomen was initially ordered but this was later changed over to a sonogram States that the lump is still noticeable but is no longer tender on palpation as it was last month No other acute complaints or symptoms are noted [facility] Medical History Bilateral inguinal hernia without obstruction or gangrene Overweight (BMI 25.0-29.9) Vitamin D deficiency Essential hypertension Polycystic kidney disease CKD (chronic kidney disease) stage 4, GFR 15-29 ml/min Paroxysmal atrial fibrillation Surgical History No pertinent past surgical history Family History Other FH: mental illness Kidney disease Social History Housing: House Alcohol intake: current Comment: occ Patient Tobacco Use Status: Never used Tobacco e-Cigarette/Vaping Use: Never Used service: Yes Current occupational status: employed Current occupational exposures/hazards: No Cognitive needs: No Hearing needs: No Vision needs: Yes Questionnaire PHQ-9 Over the last 2 weeks, how often have you been bothered by any of the following problems? Depression Screening Interpretation: Negative Depression Screening Done: Yes Source: Developed by Drs. Gustavo Peterson, Noemy Garcia, Jeffrey Starr and colleagues, with an educational sulema from [employer]. Thrive Questionnaire Date Thrive assessed: 10/24/24 I am a: Patient What is your living situation today?: I have a steady place to live Within the past 12 months, did the food you bought not last and you didn't have the money to get more?: Never true Within the past 12 months, did you worry whether your food would run out before you got money to buy more?: Never true Do you have trouble paying for medicines?: No Do you have trouble getting transportation to medical appointments?: No Do you have trouble paying your heating and electricity bill?: No Do you have trouble taking care of your child, family member or friend?: No Do you have trouble with day-to-day activities such as bathing, preparing meals, shopping, managing finances, etc.?: No Are you currently unemployed and looking for a job?: No Are you interested in more education?: Yes Please select the resources that you would like help with: None Currently or been in a relationship where the following occur: No concerns reported THRIVE Score: 0 AUDIT C Alcohol Use Questionnaire (AUDIT-C) 1. How often do you have a drink containing alcohol?: Monthly or less 2. How many drinks containing alcohol do you have on a typical day when you are drinking?: 1 or 2 3. How often do you have six or more drinks on one occasion?: Never Total Score: 1 Score Reviewed/Action Taken: Yes AYLEEN-7 AMB Questionnaire AYLEEN-7 Date AYLEEN - 7 assessed: 01/22/25 Source: Developed by Drs. Gustavo Peterson, Noemy Garcia, Jeffrey Starr and colleagues, with an educational sulema from [employer]. Review of Systems Const Denies chills, Denies fatigue, Denies fever(s) and Denies headache(s) ENT Denies dysphagia, Denies dizziness, Denies otalgia, Denies headache(s), Denies neck pain, Denies odynophagia and Denies sore throat Card Denies chest pain, Denies palpitations and Denies dyspnea Resp Denies chest congestion, Denies cough and Denies dyspnea GI Details: (+) palpable, firm, nodular lesion over the epigastric area - non-tender on palpation Denies abdominal pain, Denies constipation, Denies dysphagia, Denies heartburn, Denies diarrhea, Denies nausea, Denies odynophagia and Denies vomiting Denies difficulty urinating, Denies dysuria, Denies nocturia and Denies urinary frequency Musc Denies back pain and Denies neck pain Skin/Breast Denies rash Neuro Denies dizziness and Denies headache(s) Endo Denies fatigue and Denies palpitations Physical exam (Primary Care) Vital Signs: Last Vital Signs Pulse 59 06/27/25 16:16 BP 128/82 06/27/25 16:16 Pulse Ox 98 06/27/25 16:16 Oxygen Delivery Method Room Air 06/27/25 16:16 BMI result Body Mass Index 29.3 Tobacco/Smoking Status: Tobacco use Status Tobacco use date assessed 06/27/25 06/27/25 16:31 Patient Tobacco Use Status Never used Tobacco 06/27/25 16:17 e-Cigarette/Vaping Use Never Used 06/27/25 16:17 Depression Screening Interpretation: Negative Thrive Assessment: Date of Thrive Assessment Date Thrive assessed 10/24/24 06/27/25 16:17 Currently or been in a relationship where the following occur: No concerns reported Const General: no acute distress and alert HENMT Throat: Yes posterior oropharynx normal and Yes tonsils normal (no TP congestion) Neck Neck: Yes supple and No lymphadenopathy Thyroid: Thyroid normal Resp Auscultation: clear to auscultation bilaterally, no rales and no wheezes Cardio Rate: regular rate Rhythm: regular rhythm Heart sounds: no murmurs GI Other: (+) palpable, non-tender, nodular lesion on the epigastric area Palpation (GI): Soft to palpation, nontender and Palpable mass present ((+) small reducible palpable mass over the left suprapubic area) Auscultation: normal bowel sounds General: Yes no CVA tenderness Back/Spine/Pelvis Back: no CVA tenderness Thoracic/Lumbar Spine: No lumbar spinal tenderness Skin Rashes: no rashes Extrem General: Yes no clubbing, cyanosis or edema Coding Level of Care Code Est Pt Level 4 (91185) Diagnoses Prominent xiphoid cartilage M94.8X8 Paroxysmal atrial fibrillation I48.0 Essential hypertension I10 CKD (chronic kidney disease) stage 4, GFR 15-29 ml/min N18.4 Abdominal wall mass of suprapubic region R19.09 Vitamin D deficiency E55.9 Overweight (BMI 25.0-29.9) E66.3 Assessment & Plan Assessment & Plan (1) Prominent xiphoid cartilage: Code(s): M94.8X8 - Other specified disorders of cartilage, other site Category: Medical Plan: Have advised patient that his recent abdominal ultrasound revealed the presence of multiple simple cyst of different sizes - unclear origin organ Have advised him that the prominent nodular lesion that he is currently referring to is actually the xiphoid process, which is the cartilaginous on the lower end of his sternum, and that the likely reason that it has become more prominent lately is because of his large abdominal girth, which is pushing the same process outward and that losing weight and losing his gut should help resolve this issue spontaneously (2) Paroxysmal atrial fibrillation: Code(s): I48.0 - Paroxysmal atrial fibrillation Category: Medical Plan: Patient currently remains in sinus rhythm Continue Eliquis 5 mg BID thromboembolism prophylaxis Continue Carvedilol 25 mg BID Follow up with [facility] Cardiology as scheduled (3) Essential hypertension: Code(s): I10 - Essential (primary) hypertension Category: Medical Plan: Reinforced low sodium diet - goal is systolic BP of 120 to 130 mm or less Continue Carvedilol 25 mg BID, Nifedipine ER 90 mg QD and Olmesartan 40 mg QD Patient is reminded to continue monitoring his blood pressure regularly (4) CKD (chronic kidney disease) stage 4, GFR 15-29 ml/min: Code(s): N18.4 - Chronic kidney disease, stage 4 (severe) Category: Medical Plan: Continue Farxiga 5 mg QD Follow-up with nephrology (Dr. Gonzáles) as scheduled (5) Abdominal wall mass of suprapubic region: Code(s): R19.09 - Other intra-abdominal and pelvic swelling, mass and lump Category: Medical Plan: He was referred to surgery and is now scheduled for bilateral inguinal hernia repair surgery on 08/30/2025 at [facility] (6) Vitamin D deficiency: Code(s): E55.9 - Vitamin D deficiency, unspecified Category: Medical Plan: Continue Vitamin D3 1000 units QD (7) Overweight (BMI 25.0-29.9): Code(s): E66.3 - Overweight Category: Medical Plan: Reinforce diet/exercise as tolerated/lose weight Plan Follow up as scheduled in September 2025
[2025-06-27 16:16] VITALS: BP 128/82; PULSE 59; O2SAT 98; BMI 29.3
--- OUTSIDE RECORDS SUMMARY | 2025-06-27 19:20 | XMS_ITS | Clinical Summary ---
Author Organization [facility] Address [address] [place] [address] Care Team Providers Care Special Education Paraeducator Name Role Phone Unavailable Primary Care Provider [...]
--- OUTSIDE RECORDS SUMMARY | 2025-06-27 19:20 | XMS_ITS | Patient Health Record ---
Author Organization [facility] Address [address] [place] [address] Care Team Providers Care Contour Sander Name Role Phone Benito Feng Unavailable [phone] Allergies Allergen (clinical drug ingredient) Drug/Non Drug [...] Problem Acquired hammer toe of right foot (5687670707022 105) Other hammer toe(s) (acquired), right foot (M20.41) Active confirmed Problem Tinea unguium (594002535) Tinea unguium (B35.1) Active confirmed Problem Acquired hammer toe of left foot (6377747579303 103) Other hammer toe(s) (acquired), left foot (M20.42) Active confirmed Problem Plantar wart (19161760) Plantar wart (B07.0) Active confirmed Plan Of Treatment Pending Test Test Name Order Date [id number] NAIL, 6 OR MORE 08/19/2022 [id number] Destruction, 1-14 08/19/2022 Insurance Providers Payer Name Payer Address Payer Phone Subscriber Number Group Number Insured Name Patient Relationship to Insured Coverage Start Date Coverage End Date Aetna [address] [place] [address] [id number] Princess Cruz Spouse - patient is the spouse of the insured Medical (General) History Medical History History ICD Code covid-19 Kidney disease Chicken pox Surgical History Surgery Date(Month/Year)
== END 2025-06-27 16:57 | disposition home or self-care (01) ==
LOC: HO.HMCH 16:12
PROVIDERS: PCP Internal Medicine; Visit Provider Internal Medicine
DX: M94.8X8 Other specified disorders of cartilage, other site (principal); I48.0 Paroxysmal atrial fibrillation; I12.9 Hypertensive chronic kidney disease with stage 1 through stage 4 chronic kidney disease, or unspecified chronic kidney disease; N18.4 Chronic kidney disease, stage 4 (severe); R19.09 Other intra-abdominal and pelvic swelling, mass and lump; E55.9 Vitamin D deficiency, unspecified; E66.3 Overweight

== ENCOUNTER 2025-06-28 09:18 | Outpatient (REF) | payer OTHER, SELFPAY ==
--- OUTSIDE RECORDS SUMMARY | 2025-06-28 10:31 | XMS_ITS | Clinical Summary ---
Author Organization [facility] Address [address] [place] [address] Care Team Providers Care Malted Milk Mixer Name Role Phone Unavailable Primary Care Provider [...]
--- OUTSIDE RECORDS SUMMARY | 2025-06-28 10:31 | XMS_ITS | Patient Health Record ---
Author Organization [facility] Address [address] [place] [address] Care Team Providers Care National Sales Director Name Role Phone Benito Feng Unavailable [phone] Allergies Allergen (clinical drug ingredient) Drug/Non Drug [...] Problem Acquired hammer toe of right foot (1113335472826 105) Other hammer toe(s) (acquired), right foot (M20.41) Active confirmed Problem Tinea unguium (467563473) Tinea unguium (B35.1) Active confirmed Problem Acquired hammer toe of left foot (5910348437904 103) Other hammer toe(s) (acquired), left foot (M20.42) Active confirmed Problem Plantar wart (77869108) Plantar wart (B07.0) Active confirmed Plan Of Treatment Pending Test Test Name Order Date [id number] NAIL, 6 OR MORE 08/19/2022 [id number] Destruction, 1-14 08/19/2022 Insurance Providers Payer Name Payer Address Payer Phone Subscriber Number Group Number Insured Name Patient Relationship to Insured Coverage Start Date Coverage End Date Aetna [address] [place] [address] [id number] Princess Cruz Spouse - patient is the spouse of the insured Medical (General) History Medical History History ICD Code covid-19 Kidney disease Chicken pox Surgical History Surgery Date(Month/Year)
[2025-06-28 14:17] LABS: Parathyroid Hormone Intact 191.1 pg/mL (8.7-77.1)
[2025-06-28 17:19] LABS: Anion Gap 16 (12-20); Blood Urea Nitrogen 27 mg/dL (9-16); Calcium 9.6 mg/dL (8.4-10.2); Carbon Dioxide 24 mmol/L (22-29); Chloride 110 mmol/L (96-108); Estimated Glomerular Filt Rate 25; Potassium 4.9 mmol/L (3.3-5.1); Sodium 145 mmol/L (135-145)
== END 2025-06-28 09:19 | disposition home or self-care (01) ==
LOC: HO.HKASLDS 09:18
PROVIDERS: PCP Internal Medicine; Visit Provider Internal Medicine Nephrology
DX: Q61.2 Polycystic kidney, adult type (principal); I12.9 Hypertensive chronic kidney disease with stage 1 through stage 4 chronic kidney disease, or unspecified chronic kidney disease; N18.4 Chronic kidney disease, stage 4 (severe); E55.9 Vitamin D deficiency, unspecified; Z79.899 Other long term (current) drug therapy; Z82.71 Family history of polycystic kidney
CPT/HCPCS: 36415; 80051; 82306; 82310; 82565; 83970; 84520

== ENCOUNTER 2025-06-28 16:07 | Outpatient (AMB) | payer OTHER, SELFPAY ==
--- NOTE | 2025-06-28 16:37 | HO.NEPHOV ---
Vital Signs 06/28/25 16:38 Height 5 ft 10 in Weight 206 lb BMI 29.6 BP 148/86 H Blood Pressure Location Lt brachial Position Sitting Pulse 61 Pulse Source Pulse Oximeter Pulse Oximetry (%) 97 Oxygen Delivery Method Room Air Intake Visit Reasons: 3mnth w labs-Conf Display Designer Outside Required: No Accompanied by: Self / Same As Patient Allergies LINDA Inhibitors Allergy (Verified 06/28/25 16:38) Swelling HPI Comments Details: Roly is a 60-year-old gentleman with baseline serum creatinine between 2-2.6 due to adult polycystic kidney disease was seen in follow-up today. He was enrolled in 2 clinical trials in [facility], one was Bardoxolone vs Placebo which he is not following up anymore. He has history of systolic hypertension as well as paroxysmal atrial fibrillation. He has had no flank pain, dysuria, hematuria, kidney stones, nausea, vomiting, fever, chills, urinary symptoms, chest pain, orthostatic symptoms, paroxysmal nocturnal dyspnea, orthopnea. He has strong family history of polycystic kidney disease with father and sister. His father started intermittent hemodialysis at age of 67 & her sister started dialysis in her 40s however was able to successfully get a renal transplant. He has no history of any infected cyst or rupture of his either. He is compliant with his medications and low-sodium diet. His dad had an aneurysm(PKD). [facility] Medical History Bilateral inguinal hernia without obstruction or gangrene Overweight (BMI 25.0-29.9) Vitamin D deficiency Essential hypertension Polycystic kidney disease CKD (chronic kidney disease) stage 4, GFR 15-29 ml/min Paroxysmal atrial fibrillation Surgical History No pertinent past surgical history Family History Other FH: mental illness Kidney disease Social History Housing: House Alcohol intake: current Comment: occ Patient Tobacco Use Status: Never used Tobacco e-Cigarette/Vaping Use: Never Used service: Yes Current occupational status: employed Current occupational exposures/hazards: No Cognitive needs: No Hearing needs: No Vision needs: Yes Review of Systems Const All systems reviewed & are unremarkable except as noted in HPI and below Physical Exam Vital Signs: Last Vital Signs Pulse 61 06/28/25 16:38 BP 148/86 H 06/28/25 16:38 Pulse Ox 97 06/28/25 16:38 Oxygen Delivery Method Room Air 06/28/25 16:38 BMI result Body Mass Index 29.6 Const General: comfortable and no acute distress Orientation/consciousness: patient oriented x3 HEENT Head: Yes normocephalic Mouth: Normal oral and palatal mucosa present Eyes EOM: EOMs intact bilaterally Neck Neck: Yes supple Resp Auscultation: clear to auscultation bilaterally Cardio Jugular venous distension: no JVD Rate: regular rate GI Palpation (GI): Soft to palpation Auscultation: normal bowel sounds General: Yes no CVA tenderness Back/Spine/Pelvis Back: no CVA tenderness Skin General skin exam: no rashes or lesions noted Neuro General: patient oriented x3 and moves all extremities Extrem General: Yes no pedal edema Results Reviewed Nephrology Results: Hgb, (14.0-18.0) 12.1 g/dl L 05/10/25 WBC, (4.8-10.8) 5.4 X10*3/uL 05/10/25 Plt Count, (160-400) 223 X10*3/uL 05/10/25 Sodium, (135-145) 145 mmol/L Today Potassium, (3.3-5.1) 4.9 mmol/L Today Chloride, (96-108) 110 mmol/L H Today Carbon Dioxide, (22-29) 24 mmol/L Today BUN, (9-16) 27 mg/dL H Today Creatinine, (0.5-1.4) 2.63 mg/dL H Today Calcium, (8.4-10.2) 9.6 mg/dL Today PTH Intact, (8.7-77.1) 191.1 pg/mL H Today Urine Protein, (Neg-Trace) 30 (1+) mg/dL H 05/10/25 Assessment & Plan Assessment & Plan (1) CKD (chronic kidney disease) stage 4, GFR 15-29 ml/min: Code(s): N18.4 - Chronic kidney disease, stage 4 (severe) Category: Medical (2) Hypertension: Code(s): I10 - Essential (primary) hypertension Category: Medical Qualifiers: Hypertension type: secondary to other renal disorders Qualified Code(s): I15.1 - Hypertension secondary to other renal disorders (3) Vitamin D deficiency: Code(s): E55.9 - Vitamin D deficiency, unspecified Category: Medical (4) Polycystic kidney disease: Code(s): Q61.3 - Polycystic kidney, unspecified Category: Medical (5) Secondary hyperparathyroidism (of renal origin): Code(s): N25.81 - Secondary hyperparathyroidism of renal origin Category: Medical Plan Roly has CKD stage 4 from adult polycystic kidney disease. He has strong family history of PKD. His sister had a renal transplant. He is currently on angiotensin receptor margarita, carvedilol and nifedipine. His blood pressure is not at goal. His Nifedipine has been increased to 90 mg daily which may need to be increased more. I started him on Farxiga 5 mg today. He maintains an on low-sodium diet. Has never taken tolvaptan. He will need a MRI of the kidneys to assess the volume of kidneys. He will need 24 hour urine collection for GFR estimation soon. I did not make any other medication changes today. He avoids nonsteroidal anti-inflammatory is an maintain good hydration. Answered all questions. Follow-up given Orders: Orders Electrolytes 3 Months I15.1 - Hypertension secondary to other renal disorders, N18.4 - Chronic kidney disease, stage 4 (severe) Creatinine 3 Months I15.1 - Hypertension secondary to other renal disorders, N18.4 - Chronic kidney disease, stage 4 (severe) Blood Urea Nitrogen 3 Months I15.1 - Hypertension secondary to other renal disorders, N18.4 - Chronic kidney disease, stage 4 (severe) Medications: New Farxiga (dapagliflozin propanediol) 5 mg PO DAILY 30.0 tabs 5RF NS Discontinued dapagliflozin propanediol (Farxiga) Discontinued Reason: Doctor's Order 5 mg PO DAILY 30 tabs 10RF Coding Level of Care Code Est Pt Level 4 (46238) Diagnoses CKD (chronic kidney disease) stage 4, GFR 15-29 ml/min N18.4 Hypertension secondary to other renal disorders I15.1 Hypertension type: secondary to other renal disorders Vitamin D deficiency E55.9 Polycystic kidney disease Q61.3 Secondary hyperparathyroidism (of renal origin) N25.81
[2025-06-28 16:38] VITALS: BP 148/86; PULSE 61; O2SAT 97; BMI 29.6
--- OUTSIDE RECORDS SUMMARY | 2025-06-28 19:38 | XMS_ITS | Clinical Summary ---
Author Organization [facility] Address [address] [place] [address] Phone Care Team Providers Care Mental Health Advanced Practice Nurse Name Role Phone Alfredo Thomas MD Primary [...] kidney disease, not otherwise sp ecified 03/08/2023 Hammer toe 11/23/2022 Diabetes mellitus 11/23/2022 Plantar wart 11/23/2022 Tinea unguium 11/23/2022 Mild left ventricular hypertrophy 07/24/2021 Overview (11/23/2022): 08/03 echo Cyst of liver 03/08/2019 Impaired fasting glucose 10/25/2015 Chronic kidney disease stage 3 10/23/2014 Multiple renal cysts 08/21/2014 Overview (11/23/2022): On clinical trial at [facility], Dr Jacobo Overweight 11/05/2011 Hypertensive [...] Insurance Aetna Commercial Aetna Commercial Care Teams Mental Health Advanced Practice Nurse Relationship Specialty Start Date End Date Alfredo Thomas MD PCP - General Internal Medicine 07/13/23
--- OUTSIDE RECORDS SUMMARY | 2025-06-28 19:38 | XMS_ITS | Encounter Summary ---
Author Organization [facility] Address [address] [place] [address] Care Team Providers Care Power Press Tender Name Role Phone Geo Valero MD Primary Care Provider Unavail able Barbara Arias MD Primary Care Provider Barbara huynh Encounter Details Date Type Department Care Team Description 02/05/2017 Metal Sprayer Production Report Medical Records [address] [place] [id number] Abstract, Provider Social History Tobacco Use Types [...] on filedocumented in this encounter Care Teams Power Press Tender Relationship Specialty Start Date End Date Geo Valero MD PCP - General 10/01/09 06/08/22 Barbara Arias MD PCP - General Family Practice 06/09/22 documented as of this encounter
--- OUTSIDE RECORDS SUMMARY | 2025-06-28 19:38 | XMS_ITS | Clinical Summary ---
Author Organization [facility] Address [address] [place] [address] Care Team Providers Care Visual Display Associate Name Role Phone Barbara Arias MD Primary [...] disease 08/21/2014 Overview: On clinical trial at [facility], Dr Jacobo Overweight 11/05/2011 Hypertension 10/01/2009 [...] 40-64 06/12/202206/12, 06/12/2020, 02/23/2019, Additional history exists BMI CHECK/ADVISE 09/13/2024 07/12/2020, , 06/12/2020 (Completed), Additional history exists Covid-19 Vaccine (2022-2 4 season) 2025 11/28/2020, 11/07/2020 INFLUENZA (#1) 2025 06/12/2020 (Comp leted), 06/12/2020, 09/20/2015 (Refused) CHOLESTEROL SCREENING 06/12/2025 06/12/2020 , 02/23/2019, 02/21/2018, Additional history exists DTAP/TDAP/TD (2 - Td or Tdap) 09/20/2025 09/20/2015 COLON CANCER SCREENING 10/25/2025 10/25/2015 PNEUMOCOCCAL VACCINE FOR HIG H RISK PATIENTS (#1) 2030 HEPATITIS C SCREENING Completed 08/22/2014 Care Teams Visual Display Associate Relationship Specialty Start Date End Date Barbara Arias MD PCP - General Family Practice 06/09/22
--- OUTSIDE RECORDS SUMMARY | 2025-06-28 19:38 | XMS_ITS | Clinical Summary ---
Author Organization [facility] Address [address] [place] [address] Care Team Providers Care Ordnance Technician Name Role Phone Unavailable Primary Care Provider [...]
--- OUTSIDE RECORDS SUMMARY | 2025-06-28 19:38 | XMS_ITS | Encounter Summary ---
Author Organization [facility] Address [address] [place] [address] Care Team Providers Care Head Start Coordinator Name Role Phone Geo Valero MD Primary Care Provider Unavail able Barbara Arias MD Primary Care Provider Barbara huynh Reason for Visit * Reason Onset Date Comments Faxed Refill 12/04/2014 Encounter Details Date Type Department Care Team Description 12/04/2014 Refill Nephrology - [address] [address] Felix Kirkland MD [address] [place] [phone] Faxed Refill Social History Tobacco Use Types [...] on filedocumented in this encounter Care Teams Head Start Coordinator Relationship Specialty Start Date End Date Geo Valero MD PCP - General 10/01/09 06/08/22 Barbara Arias MD PCP - General Family Practice 06/09/22 documented as of this encounter
== END 2025-06-28 16:57 | disposition home or self-care (01) ==
LOC: HO.HKAS 16:08
PROVIDERS: PCP Internal Medicine; Visit Provider Internal Medicine Nephrology
DX: N18.4 Chronic kidney disease, stage 4 (severe) (principal); I15.1 Hypertension secondary to other renal disorders; E55.9 Vitamin D deficiency, unspecified; Q61.3 Polycystic kidney, unspecified; N25.81 Secondary hyperparathyroidism of renal origin
CPT/HCPCS: 99214

== ENCOUNTER 2025-08-30 05:57 | Day surgery (SDC) | payer OTHER, SELFPAY ==
[2025-08-16 11:42] VITALS: BMI 27.9
--- NOTE | 2025-08-16 13:10 | P.CONAN_ITS ---
Documented by User: Claire Martinez NP 08/27/25 12:40 HPI - Anesthesia Eval Consult details Narrative: 60yo M for Bilateral Hernia Inguinal Reducible, 08/30/[address] 4 from adult polycystic kidney ds/htn. [facility], deemed optimized per 02/2025 workload message. Last office visit 06/2025. Baseline creat 2.0-2.6 PAF on eliquis. [place] [place], deemed optimized per last office visit 03/2025. ECHO and EKG ok Anesthesia Pre-Procedure Meds Is the patient on any of the following meds?: SGLT2 Inhib PMFSH Active Problems Active Problems: All Active Problems Prominent xiphoid cartilage (Acute) Secondary hyperparathyroidism (of renal origin) (Acute) Epigastric lump (Acute) Abdominal pain (Acute) Abdominal wall lump (Acute) Preop cardiovascular exam (Acute) Breast nodule (Acute) Abdominal wall hernia (Acute) Colon cancer screening (Acute) Abdominal wall mass of suprapubic region (Acute) Annual physical exam (Acute) Hypertension (Acute) Bilateral inguinal hernia without obstruction or gangrene (Acute) Overweight (BMI 25.0-29.9) (Acute) Vitamin D deficiency (Acute) Essential hypertension (Acute) Paroxysmal atrial fibrillation (Acute) Polycystic kidney disease (Acute) CKD (chronic kidney disease) stage 4, GFR 15-29 ml/min (Acute) Past Medical History Medical History Bilateral inguinal hernia without obstruction or gangrene Overweight (BMI 25.0-29.9) Vitamin D deficiency Essential hypertension Polycystic kidney disease CKD (chronic kidney disease) stage 4, GFR 15-29 ml/min Paroxysmal atrial fibrillation Family History Family History Other FH: mental illness Kidney disease Surgical History Surgical History H/O colonoscopy No pertinent past surgical history Social History Social History Housing: House Alcohol intake: current Comment: occ Patient Tobacco Use Status: Never used Tobacco e-Cigarette/Vaping Use: Never Used Use of substances other than those prescribed or required for medical reasons: No Have you been hit, kicked, punched, or otherwise hurt by someone within the past year? If so, by whom?: No Are you DNR?: No Advance Directives: No Advance Directives Information Provided: Yes Advance Directives on File: No service: Yes Current occupational status: employed Current occupational exposures/hazards: No Cognitive needs: No Hearing needs: No Vision needs: Yes Meds Allergies Allergy/AdvReac Type Severity Reaction Status Date / Time LINDA Inhibitors Allergy Swelling Verified 08/30/25 06:42 Home Medications ?Medication ?Instructions ?Recorded ?Confirmed ?Last Taken ?Type cholecalciferol (vitamin D3) 25 25 mcg PO DAILY 08/30/25 Unknown History mcg (1,000 unit) capsule Exam Height,Weight and Vital Signs: Height 5 ft 11 in Weight 90.718 kg Pertinent Lab Results Pertinent Lab Results: Laboratory Tests 05/10/25 06/28/25 08:26 09:25 WBC 5.4 Hgb 12.1 L Hct 37.0 L Plt Count 223 Sodium 145 Potassium 4.9 Chloride 110 H Carbon Dioxide 24 BUN 27 H Creatinine 2.63 H Narrative Narrative: EKG 03/2025 Details: Sinus bradycardia with first-degree AV block, normal axis, poor R-wave progression and can not rule out septal infarct, inferior T-wave inversions, QTC 368 milliseconds. ECHO 12/2024 Conclusions: - Normal left ventricular size and systolic function. The visually estimated ejection fraction is between 65-70%. - E/E prime ratio is between 8 and 15 consistent with indeterminate filling pressures. - Normal global longitudinal strain 19.9%. - Normal right ventricular cavity size and systolic function. Assessment and Plan Assessment Anesthesia Assessment: Chart Reviewed Documented by User: Mark Anthony Luna MD 08/30/25 07:26 [facility] Past Medical History Medical History Bilateral inguinal hernia without obstruction or gangrene Overweight (BMI 25.0-29.9) Vitamin D deficiency Essential hypertension Polycystic kidney disease CKD (chronic kidney disease) stage 4, GFR 15-29 ml/min Paroxysmal atrial fibrillation Family History Family History Other FH: mental illness Kidney disease Surgical History Surgical History H/O colonoscopy No pertinent past surgical history Social History Social History Housing: House Alcohol intake: current Comment: occ Patient Tobacco Use Status: Never used Tobacco e-Cigarette/Vaping Use: Never Used Use of substances other than those prescribed or required for medical reasons: No Have you been hit, kicked, punched, or otherwise hurt by someone within the past year? If so, by whom?: No Are you DNR?: No Advance Directives: No Advance Directives Information Provided: Yes Advance Directives on File: No service: Yes Current occupational status: employed Current occupational exposures/hazards: No Cognitive needs: No Hearing needs: No Vision needs: Yes Meds Allergies Allergy/AdvReac Type Severity Reaction Status Date / Time LINDA Inhibitors Allergy Swelling Verified 08/30/25 06:42 Home Medications ?Medication ?Instructions ?Recorded ?Confirmed ?Last Taken ?Type cholecalciferol (vitamin D3) 25 25 mcg PO DAILY 08/30/25 Unknown History mcg (1,000 unit) capsule Exam Exam Date and Time: 08/30/25 Airway Mallampati Class: III TM Dist: >3cm Neck ROM: Full Loose/Missing/Broken Teeth: No Heart: rrr Lungs: ctab vesicular
[2025-08-30] VITALS (7 sets, daily range): BP systolic 124–162; BP diastolic 79–92; PULSE 61–73; RESP 11–18; TEMP 36.3–36.6; O2SAT 94–99; BMI 27.2
[2025-08-30] MEDS: Lactated Ringers 1,000 ML 100 ML IVCONT (07:08)
--- NOTE | 2025-08-30 07:22 | MHC.SHP ---
Pre-Procedural Eval Section A - 24 Hr Update-Section A only Date of Service: 08/30/25 The patient is an INPATIENT: No Changes since office visit: Yes Patient answered all questions; No Cold of Flu in the past 2 weeks, No New Medical Problems and No Changes in Medication The patient has been examined within 24 hours of the surgical procedure. The History & Physical has been completed within 30 days and I have reviewed it.: No Section B - Complete if H&P > 30 days Chief Complaint: Bilateral inguinal hernia, without obstruction Details of Present Illness: No change in abdominal symptoms. Relevant Family History (Specify if Yes): No Relevant Social History: None Present Medications: see Short Stay Collaborative assessment Medical History: Significant History (PAF, hypertension, PKD, CKD) Allergies: Allergies Allergy/AdvReac Type Severity Reaction Status Date / Time LINDA Inhibitors Allergy Swelling Verified 08/30/25 06:42 Review of Systems Sugical H&P ROS: Negative: Constitution, Cardiovascular, Respiratory, Neurological, Psychiatric, Hem-Onc, Allergic/Immunologic, Gastrointestinal, Genitourinary, Musculoskeletal, Integumentary, Endocrine and Eyes/Ears/Nose/Throat Exam Surgical H&P Exam: Normal: HEENT, Normal: Heart, Normal: Lungs, Normal: Extremities, Normal: Abdomen, Normal: Skin and Normal: Neurological Plan Diagnosis/Plan: Unchanged I have reviewed the history and physical and performed a pertinent physical examination on my patient. No changes have occurred unless specified. Time Spent With Patient Time: Total time managing care of this patient today ____ minutes.
[2025-08-30 07:42] LABS: Base Excess Bedside Calculated 2 mmol/L (-3-3); Glucose, i-STAT 96 mg/dL (60-115); HCO3 Bedside Calculated 28 mmol/L (22-26); Hematocrit Bedside 35 %PCV (42-52); Hemoglobin Bedside 11.9 g/dL (14.0-18.0); Potassium Bedside 5.0 mmol/L (3.3-5.1); Sodium Bedside 143 mmol/L (135-145); TCO2 Bedside 29 mmol/L (24-29); pCO2 Bedside 53 mmhg (35-48); pH Bedside 7.33 (7.35-7.45)
--- NOTE | 2025-08-30 09:17 | P.OP_ITS ---
Operative Note Operative Note Date of Service: 08/30/25 Narrative: Preoperative diagnosis: Bilateral inguinal hernias, reducible Postoperative diagnosis: Same Procedure: Repair of bilateral inguinal hernias with mesh Surgeon: Sammy Valenzuela MD Automatic Lehr Operator: Chance Schmidt PA-C, Jazmin Rivera, MS-3 Anesthesia: General endotracheal Indications for procedure: 60-year-old male patient presenting for repair of bilateral reducible inguinal hernias with mesh. He reports some mild discomfort from both hernias but denies any other intestinal symptoms. Operative findings: Right side indirect hernia and left side direct hernia Specimen: Hernia sac right side Estimated blood loss: 10 mL Complications: None Procedure details: Patient was brought to the OR and placed in a supine position. After administering general anesthesia the patient's abdomen was prepped with ChloraPrep and draped in a sterile fashion. A surgical time-out was called the consent confirmed. Patient received preoperative antibiotics and Venodyne boots were in place. Local anesthesia consisting of 0.5% Sensorcaine was infiltrated over bilateral inguinal ligaments. Beginning in the right side and incision was made over the inguinal ligament and carried out through subcutaneous tissue, past Valeria's fascia and up to the external oblique aponeurosis. Additional local was infiltrated below the external oblique aponeurosis. This was then incised with a scalpel and widened with the Met zenbaum scissors. The spermatic cord was then dissected free from the surrounding inguinal canal and retracted using a Paul drain. The floor of the inguinal canal was found to be intact. Fibers of the cremaster muscle were then and a indirect sac identified. This was dissected down to the internal ring. The sac was opened and the contents reduced. The sac was then ligated at its base and excised. This was ligated with a 0 Polysorb suture. Attention was then directed to the floor of the inguinal canal. Fibers of the internal oblique and transversalis aponeurosis were then incised with electrocautery. The preperitoneal space was then opened and widened using an open Ray-Chanel sponge. A large extended PHS mesh was then obtained. The circular underlay was deployed within the preperitoneal space. The overlay was then secured to the pubic tubercle, conjoined tendon, and shelving edge of the inguinal ligament using a 0 Polysorb suture. A slit was made in the mesh in the mesh wrapped around the spermatic cord at the internal ring. This was secured to the shelving edge using the 0 Polysorb suture. The remainder of the mesh was placed laterally below the external oblique aponeurosis. The in internal ring was tight enough to allow only the passage of the tip of the index finger. Wounds were then irrigated with saline solution and suctioned dry. External oblique aponeurosis was then closed using a running 2-0 Polysorb suture. Attention was then directed to the left groin. Again local was infiltrated over the left inguinal ligament. Incision was then made with a scalpel and carried out through subcutaneous tissue, past Valeria's fascia and up to the external oblique aponeurosis. Additional local was infiltrated below the external oblique aponeurosis. The aponeurosis was then incised with a scalpel and widened with the Metzenbaum scissors. The spermatic cord was then dissected free from the surrounding inguinal canal and retracted using a Egan drain. The floor of the inguinal canal was found to have a direct hernia. Fibers of the cremaster muscle were and no indirect sac could be identified. Attention was then directed to the floor of the inguinal canal which was grasped with an Allis clamp. Fibers of the internal oblique and transversalis aponeurosis were then incised with the electrocautery and the preperitoneal space entered. This was then widened with a open Ray-Chanel sponge. A large extended PHS mesh was then obtained. The circular underlay was deployed within the preperitoneal space. The overlay was then secured to the pubic tubercle, conjoined tendon, and shelving edge of the inguinal ligament using a 0 Polysorb suture. A slit was made in the mesh in the mesh wrapped around the spermatic cord and secured to the pubic tubercle using the 0 Polysorb suture. This was felt to be tight enough to allow only the passage of the tip of the index finger. Wounds were then irrigated with saline solution and suctioned dry. External oblique aponeurosis was then closed using a running 2-0 Polysorb suture. Approximately 6 mL of Zenrelef was instilled below the external oblique aponeurosis bilaterally. Valeria's fascia was then closed bilaterally using interrupted 3-0 Polysorb sutures. Dermis was reapproximated using interrupted 3-0 Polysorb sutures. Skin was then closed bilaterally using a running subc uticular 4-0 Polysorb suture. Steri-Strips,x 4 gauze and Tegaderm were then applied. The patient tolerated the procedure well. Sponge, instrument, and needle counts reported as correct. The patient was transferred to PACU in stable condition.
[2025-08-30 15:02] LABS: SO2 Bedside Calculated < 35 %; pO2 Bedside < 50 mmhg (83-108)
== END 2025-08-30 11:39 | disposition home or self-care (01) ==
PROVIDERS: PCP Internal Medicine; Visit Provider Surgery
PROC: (CPT 49505; principal; 2025-08-30 07:30)
DX: K40.20 Bilateral inguinal hernia, without obstruction or gangrene, not specified as recurrent (principal); I12.9 Hypertensive chronic kidney disease with stage 1 through stage 4 chronic kidney disease, or unspecified chronic kidney disease; N18.4 Chronic kidney disease, stage 4 (severe); Q61.3 Polycystic kidney, unspecified; E55.9 Vitamin D deficiency, unspecified; I48.0 Paroxysmal atrial fibrillation; E66.3 Overweight; Z68.27 Body mass index [BMI] 27.0-27.9, adult; Z79.01 Long term (current) use of anticoagulants; Z79.899 Other long term (current) drug therapy; Z88.8 Allergy status to other drugs, medicaments and biological substances
CPT/HCPCS: 49505; 88302; C1781; J0131; J0668; J0690; J1100; J1596; J2003; J2250; J2371; J2405; J2704; J3010

== ENCOUNTER → 2025-08-30 05:57 | Outpatient (BNV) | payer OTHER, SELFPAY | PROVIDERS: PCP Internal Medicine; Visit Provider Surgery | DX: K40.20 Bilateral inguinal hernia, without obstruction or gangrene, not specified as recurrent (principal) | CPT/HCPCS: 49505 ==

== ENCOUNTER 2025-09-10 09:03 | Outpatient (AMB) | payer OTHER, SELFPAY ==
--- NOTE | 2025-09-10 09:17 | MHC.OFFVIS ---
Vital Signs 09/10/25 09:19 Weight 204 lb Intake Visit Reasons: s/p bilateral inguinal hernia w/mesh Intake Note: Patient is seen in office for post op assessment post repair of bilateral inguinal hernias with mesh. Pt c/o: tenderness. Never took rx Oxycodone. Steri strips in place. surgery:08/30/25 Biological Aide Required: No Accompanied by: Self / Same As Patient Allergies LINDA Inhibitors Allergy (Verified 09/10/25 09:18) Swelling Medication List - Last Reconciled 09/10/25 by Sammy Valenzuela MD apixaban (Eliquis) 5 mg PO BID 90 days carvedilol 25 mg PO BID cholecalciferol (vitamin D3) 25 mcg PO DAILY Farxiga (dapagliflozin propanediol) 5 mg PO DAILY NS nifedipine ER 90 mg PO DAILY olmesartan 40 mg PO DAILY HPI Comments Details: 60-year-old male status post repair of a bilateral inguinal hernia performed on 08/30/2025 with mesh. He tolerated the procedure well and reports not taking any pain medication postoperatively. He has been using Tylenol which seemed to cover his discomfort. He did note some swelling in the incision but otherwise feels improved. He has some constipation which improved with prune juice. He also reports indigestion. [facility], [facility] Medical History Bilateral inguinal hernia without obstruction or gangrene Overweight (BMI 25.0-29.9) Vitamin D deficiency Essential hypertension Polycystic kidney disease CKD (chronic kidney disease) stage 4, GFR 15-29 ml/min Paroxysmal atrial fibrillation Surgical History History of bilateral inguinal hernia repair (08/30/25) H/O colonoscopy No pertinent past surgical history Family History Other FH: mental illness Kidney disease Social History Housing: House Are you a primary early breastfeeding care specialist to a significant other at home: No Do you presently have visiting nurse or other home services: No Alcohol intake: current Alcohol intake frequency: does not drink Comment: correct count Patient Tobacco Use Status: Never used Tobacco e-Cigarette/Vaping Use: Never Used service: Yes Current occupational status: employed Current occupational exposures/hazards: No Cognitive needs: No Hearing needs: No Vision needs: Yes Review of Systems Const All systems reviewed & are unremarkable except as noted in HPI and below Physical Exam Const General: healthy appearing Nutritional Appearance: well nourished Orientation/consciousness: patient oriented x3 Resp Effort & Inspection: normal respiratory effort GI Other: Soft and nondistended, well-healed bilateral inguinal incisions with moderate swelling. No evidence of infection or hematoma. Neuro General: patient oriented x3 Extrem Other: No edema Upper/lower leg/hip images:  1. 2. Assessment & Plan Assessment & Plan (1) Bilateral inguinal hernia without obstruction or gangrene: Code(s): K40.20 - Bilateral inguinal hernia, without obstruction or gangrene, not specified as recurrent Category: Medical Qualifiers: Recurrence: non-recurrent Qualified Code(s): K40.20 - Bilateral inguinal hernia, without obstruction or gangrene, not specified as recurrent Plan 60-year-old male status post repair of bilateral inguinal hernias repaired with mesh on 08/30/2025. He tolerated the procedure well in his wounds are healing nicely. He should continue to avoid lifting greater than 10 lb and return in 1 month for follow-up examination. He is welcome to call sooner for any new concerns. Coding Level of Care Code Global (54032) Diagnoses Non-recurrent bilateral inguinal hernia without obstruction or gangrene K40.20 Recurrence: non-recurrent
--- OUTSIDE RECORDS SUMMARY | 2025-09-10 09:23 | XMS_ITS | Clinical Summary ---
Author Organization [facility] Address [address] [place] [address] Care Team Providers Care Human Service Worker Name Role Phone Unavailable Primary Care [...] on file Sexual Orientation Not on file Plan of Treatment Health Maintenance Due Date [...]
--- OUTSIDE RECORDS SUMMARY | 2025-09-10 09:23 | XMS_ITS | Clinical Summary ---
Author Organization [facility] Address [address] [place] [address] Phone Care Team Providers Care Draw Operator Name Role Phone Alfredo Thomas MD Primary [...] 08/21/2014 Overview (11/23/2022): On clinical trial at [facility], Dr Jacobo Overweight 11/05/2011 Hypertensive disorder [...] Insurance Aetna Commercial A[employer]na Commercial Care Teams Draw Operator Relationship Specialty Start Date End Date Alfredo Thomas MD PCP - General Internal Medicine 07/13/23
--- OUTSIDE RECORDS SUMMARY | 2025-09-10 09:23 | XMS_ITS | Patient Health Record ---
Author Organization [facility] Address [address] [place] [address] Care Team Providers Care Organ Pipe Maker Metal Name Role Phone Benito Feng Unavailable [phone] Allergies Allergen (clinical drug ingredient) Drug/Non Drug [...] Problem Acquired hammer toe of right foot (5667581073482 105) Other hammer toe(s) (acquired), right foot (M20.41) Active confirmed Problem Tinea unguium (286691198) Tinea unguium (B35.1) Active confirmed Problem Acquired hammer toe of left foot (0755171946085 103) Other hammer toe(s) (acquired), left foot (M20.42) Active confirmed Problem Plantar wart (26038624) Plantar wart (B07.0) Active confirmed Plan Of Treatment Pending Test Test Name Order Date [id number] NAIL, 6 OR MORE 08/19/2022 [id number] Destruction, 1-14 08/19/2022 Insurance Providers Payer Name Payer Address Payer Phone Subscriber Number Group Number Insured Name Patient Relationship to Insured Coverage Start Date Coverage End Date [employer] [address] [place] [address] [phone] [id number] Princess Cruz Spouse - patient is the spouse of the insured Medical (General) History Medical History History ICD Code covid-19 Kidney disease Chicken pox Surgical History Surgery Date(Month/Year)
--- OUTSIDE RECORDS SUMMARY | 2025-09-10 09:23 | XMS_ITS | Clinical Summary ---
Author Organization [facility] Address [address] [place], [place] [id number] Care Team Providers Care Insurance Executive Name Role Phone Geo Valero Unavailable Allergies Active Allergy Reactions Criticality Noted Date Comments Napoleon Inhibitors Angioedema Level of certainty: Moderately Certain Medications amLODIPine (NORVASC) 10 MG tablet 1 tablet(s) by mouth once a day 90 tablet 3 07/29/2021 Active carvediloL (COREG) 12.5 MG tablet 2 in a.m., 1 inp.m. tablet(s) by mouth twice a day 25 mg a.m., 12.5 mg p.m. 270 tablet 3 08/25/2021 Active olmesartan (BENICAR) 40 MG tablet one tablet(s) by mouth twice a day 180 tablet 3 01/27/2022 Active furosemide (LASIX) 40 MG tablet one tablet(s) by mouth once a day 90 tablet 3 06/25/2021 Active Social History Tobacco Use Types Packs/Day Years Used Date Smoking Tobacco: Never Assessed Sex and Gender Information Value Date Recorded Sex Assigned at Not on file Legal Sex Male 12:56 AM EST Gender Identity Not on file Sexual Orientation Not on file Last Filed Vital Signs Vital Sign Reading Time Taken Comments Blood Pressure - - Pulse - - Temperature - - Respiratory Rate - - Oxygen Saturation - - Inhaled Oxygen Concentration - - Weight 93.5 kg (206 lb 3.2 oz) 12/10/2020 12:00 AM EDT Legacy value: 206.2 lbs; Method: With Clothes; With Shoes Height 178.8 cm (5' 10.38 ) 03/21/2019 12:00 AM EDT Legacy value: 70.375 Body Mass Index 29.27 03/21/2019 12:00 AM EDT Plan of Treatment Health Maintenance Due Date Last Done Comments Blood Pressure 1965 PSA 1965 Prostate Cancer Screening 1965 SDM 1965 Depression Screening 1977 Hepatitis C Screening 1983 DTaP,Tdap,and Td Vaccines (1 - Tdap) 1984 CT Colonography 2010 Colonoscopy 2010 Colorectal Cancer Screening 2010 FIT 2010 FOBT 2010 Multitarget Stool DNA (Cologuard) 2010 Sigmoidoscopy 2010 Pneumococcal Vaccine: 50+ Years (1 of 1 - PCV) 2015 Zoster Vaccine (1 of 2) 2015 COVID-19 Vaccine (1 - season) 2025 Influenza Vaccine (#1) 2025 Lipid Panel 06/11/2025 06/11/2020, 05/15, 06/11/2020, Additional history exists Meningococcal B Vaccines Aged Out No longer eligible based on patient's age to complete this topic Meningococcal Vaccines Aged Out No lo nger eligible based on patient's age to complete this topic Procedures Procedure Name Priority Date/Time Associated Diagnosis Comments CHOLESTEROL, TOTAL Routine 06/11/2020 2: 50 PM EDT from Last 3 Months or Most Recently Relevant to Health Maintenance Results * (ABNORMAL) Cholesterol, Total (06/11/2020 2:50 PM EDT) Cholesterol 210(A) 0.000 - 199.000 mg/dL CONVERSION FROM [facility] 06/11/2020 2:50 PM EDT 06/11/2020 9:08 PM EDT us Historical Conversion Provider LAB BLOOD LAINA KEITA Final Result CONVERSION FROM [facility] from Last 3 Months or Most Recently Relevant to Health Maintenance Care Teams Insurance Executive Relationship Specialty Start Date End Date Geo Valero [address] [place] [address] PCP - Insurance Assigned PCP 11/17/22
== END 2025-09-10 09:52 | disposition home or self-care (01) ==
LOC: HO.HGS 09:04
PROVIDERS: PCP Internal Medicine; Visit Provider Surgery
DX: K40.20 Bilateral inguinal hernia, without obstruction or gangrene, not specified as recurrent (principal)
CPT/HCPCS: 99024